=== PATIENT | female | born 1935 | race Caucasian/White ===

== ENCOUNTER 2018-10-05 10:20 | Inpatient (IN) | payer BC ==
[~2018-10-05] VITALS: Ht 149.9 cm; Wt 50.3 kg
[~2018-10-05 10:20] MED LIST: FAMO40TA4 PO; LISI1TAB3 PO; METH2.5T PO; OMEP20TA63 PO; ROPI0.5T PO
[2018-10-05 11:00] VITALS: BP 164/77
[2018-10-05] MEDS ORDERED: LOSA50TA15 PO (11:05)
[2018-10-05] MEDS ORDERED: IPRA3AMP29 INH (11:08)
[2018-10-05] MEDS ORDERED: PROAIR RESPICL90 MCG INH (11:08)
[2018-10-05] MEDS ORDERED: HYDR-2765 PO (11:57)
[2018-10-05] MEDS ORDERED: ROPI1TAB2 PO (11:57)
[2018-10-05] MEDS ORDERED: AMLO5TAB10 PO (11:57)
[2018-10-05] MEDS ORDERED: ROPI2TAB4 PO (11:57)
[2018-10-05] MEDS: IPRATRPIUM/ALBUTEROL 0.5/2.5MG 3 ML NEBU. NEB SCH ×3 (12:00→19:59)
[2018-10-05] MEDS ORDERED: MAGNESIUM HYDROXIDE 2,400 MG/30 ML ORAL.SUSP. PO PRN (12:00)
[2018-10-05] MEDS ORDERED: ACETAMINOPHEN 325 MG TABLET. PO PRN (12:00)
[2018-10-05 12:25] LABS: BASO # 0.1 x10^3/uL (0.0-0.2); BASO % 1 % (0-3); EOS % 0 % (0-3); HEMATOCRIT 42.6 % (36.0-47.0); LYMPH # 0.9 x10^3/uL (1.0-4.8); LYMPH % 13 % (24-48); MEAN CORPUSCULAR HEMOGLOBIN 32 pg (25-35); MEAN CORPUSCULAR HGB CONC 33 g/dL (31-37); MEAN CORPUSCULAR VOLUME 97 fL (79-100); MONO # 0.5 x10^3/uL (0.0-1.1); MONO % 8 % (0-9); NEUT # 5.4 x10^3uL (1.8-7.7); NEUT % 79 % (31-73); PLATELET COUNT 212 x10^3/uL (140-400); RED BLOOD COUNT 4.39 x10^6/uL (3.50-5.40); RED CELL DISTRIBUTION WIDTH 15.6 % (11.5-14.5); WHITE BLOOD COUNT 6.9 x10^3/uL (4.0-11.0)
[2018-10-05 12:34] LABS: ALBUMIN 3.2 g/dL (3.4-5.0); ALBUMIN/GLOBULIN RATIO 0.8 (1.0-1.7); CALCIUM 9.1 mg/dL (8.5-10.1); CREATININE 0.6 mg/dL (0.6-1.0); POTASSIUM 4.2 mmol/L (3.5-5.1); TOTAL BILIRUBIN 0.7 mg/dL (0.2-1.0)
[2018-10-05] MEDS: methylPREDNISolone SOD SUCC PF 40 MG/ML VIAL. IV SCH ×2 (12:58→22:02)
[2018-10-05] MEDS: HYDROcodone/APAP 7.5/325MG 1 TAB TABLET PO PRN ×2 (12:58→19:56)
[2018-10-05] MEDS: LOSARTAN POTASSIUM 50 MG TABLET. PO SCH (13:00)
[2018-10-05] MEDS: amLODIPine BESYLATE 5 MG TABLET PO SCH (13:00)
--- NOTE | 2018-10-05 13:18 | RAD ---
CT of the chest without contrast, 10/05/2018: History: Cough, worsening dyspnea Noncontrast scans were obtained and compared to a study from 05/16/2014. There is extensive calcific plaquing of the thoracic aorta and its branches without evidence of aneurysm. Moderate coronary artery calcifications are present. The heart is not enlarged. There is a large hiatal hernia. A precarinal lymph node of borderline size is noted. No definite mediastinal adenopathy is seen. Emphysematous changes are present in the lungs with scattered parenchymal scars. There are new pulmonary opacities which are most prominent in the right middle lobe and lingula. There is a mixture of groundglass and tree in bud type opacities as well as other linear reticular opacities. There is a small area of dense consolidation or atelectasis in the medial aspect of the right middle lobe without air bronchograms. There is a moderate sized parenchymal calcification the right lower lobe abutting the fissure. There is no evidence of pleural fluid. Scattered degenerative changes are present in the spine. There are 2 mid thoracic vertebral compression, which are probably old. Moderate multilevel degenerative change is present in the spine. IMPRESSION: 1. Emphysema with bilateral parenchymal scarring. 2. New scattered mild parenchymal opacities with dominant involvement of the right middle lobe and lingula which are most likely inflammatory in nature. 3. Mild dense atelectasis/consolidation medially in the right middle lobe. CT follow-up is suggested to exclude a neoplastic etiology. 4. Moderate calcific plaquing of aorta and coronary arteries. 5. Large hiatal hernia. 6. Mid thoracic vertebral compression fractures. PQRS Compliance Statement: One or more of the following individualized dose reduction techniques were utilized for this examination: 1. Automated exposure control 2. Adjustment of the mA and/or kV according to patient size 3. Use of iterative reconstruction technique
--- NOTE | 2018-10-05 13:22 | RAD ---
Chest, 2 views, 10/05/2018: HISTORY: Shortness of breath, cough Comparison is made to a study from 03/22/2013. There is hyperexpansion of the lungs compatible with emphysema. A moderate-sized hiatal hernia is noted. There is moderate calcific plaquing and tortuosity of the thoracic aorta. The heart appears to be within normal limits in size. There are are linear parenchymal opacities compatible scarring. Right middle lobe atelectasis/infiltrate is present obscuring the right heart border. No pleural fluid is evident. Several midthoracic vertebral compression deformities are noted with accentuation of the normal thoracic kyphosis. One of these was present in 2006. Moderate scattered spurs are present in the spine. An old rib fracture is noted laterally on the right. IMPRESSION: 1. Emphysema with parenchymal scarring. 2. Moderate right middle lobe infiltrate suggesting pneumonia. 3. Moderate sized hiatal hernia. 4. Midthoracic vertebral compression fractures. Electronically signed by: Thanh Myers MD (10/05/2018 1:19 PM) [facility]
--- NOTE | 2018-10-05 13:44 | EKG ---
[facility] [address] [place] [address] Test Date: 2018-10-05 Test Time: 13:36:53 Pat Name: ADEN GALLOWAY Department: Room: 521 1 Gender: F Drier Take Off Tender: AT : 1935 Requested By: HIPOLITO SCHAFER Order Number: [id number] Reading MD: Kelvin Mi MD Measurements Intervals [place] Rate: 100 P: 45 NV: 206 QRS: 13 QRSD: 82 T: 30 QT: 314 QTc: 408 Interpretive Statements SINUS RHYTHM PROLONGED NV INTERVAL NON-SPECIFIC ST/T CHANGES Electronically Signed On 10-05-2018 15:12:33 CDT by Kelvin Mi MD
[2018-10-05 14:29] LABS: BILIRUBIN,URINE NEGATIVE (NEG); CLARITY,URINE CLEAR; COLOR,URINE YELLOW; NITRITE,URINE NEGATIVE (NEG); PROTEIN,URINE NEGATIVE (NEG-TRACE); UROBILINOGEN,URINE 0.2 mg/dL (0.2 mg/dL)
[2018-10-05 15:00] VITALS: BP 144/78
[2018-10-05 15:09] LABS: BACTERIA,URINE MANY /HPF (0-FEW); RBC,URINE OCC /HPF (0-2); WBC,URINE >40 /HPF (0-4)
[2018-10-05] MEDS ORDERED: ONDANSETRON ODT 4 MG TAB.RAPDIS. PO PRN (16:30)
[2018-10-05] MEDS ORDERED: cefTRIAXone IV Push 1 GM VIAL. IVP SCH (17:00)
[2018-10-05] MEDS: rOPINIRole 1 MG TABLET. PO SCH ×2 (17:07→20:30)
[2018-10-05] MEDS: AZITHROMYCIN 250 MG TABLET. PO SCH (17:07)
--- NOTE | 2018-10-05 17:23 | PDOC ---
PULMONARY PROGRESS NOTES Vitals Vital Signs Date Time Temp Pulse Resp B/P (MAP) Pulse Ox O2 Delivery O2 Flow Rate FiO2 10/05/18 15:00 97.8 89 18 144/78 (100) 91 Room Air 97.8 Labs Laboratory Tests Test 10/05/18 12:10 10/05/18 13:30 White Blood Count 6.9 x10^3/uL (4.0-11.0) Red Blood Count 4.39 x10^6/uL (3.50-5.40) Hemoglobin 14.0 g/dL (12.0-15.5) Hematocrit 42.6 % (36.0-47.0) Mean Corpuscular Volume 97 fL (79-100) Mean Corpuscular Hemoglobin 32 pg (25-35) Mean Corpuscular Hemoglobin Concent 33 g/dL (31-37) Red Cell Distribution Width 15.6 % (11.5-14.5) Platelet Count 212 x10^3/uL (140-400) Neutrophils (%) (Auto) 79 % (31-73) Lymphocytes (%) (Auto) 13 % (24-48) Monocytes (%) (Auto) 8 % (0-9) Eosinophils (%) (Auto) 0 % (0-3) Basophils (%) (Auto) 1 % (0-3) Neutrophils # (Auto) 5.4 x10^3uL (1.8-7.7) Lymphocytes # (Auto) 0.9 x10^3/uL (1.0-4.8) Monocytes # (Auto) 0.5 x10^3/uL (0.0-1.1) Eosinophils # (Auto) 0.0 x10^3/uL (0.0-0.7) Basophils # (Auto) 0.1 x10^3/uL (0.0-0.2) Sodium Level 138 mmol/L (136-145) Potassium Level 4.2 mmol/L (3.5-5.1) Chloride Level 100 mmol/L (98-107) Carbon Dioxide Level 28 mmol/L (21-32) Anion Gap 10 (6-14) Blood Urea Nitrogen 9 mg/dL (7-20) Creatinine 0.6 mg/dL (0.6-1.0) Estimated GFR (Cockcroft-Gault) 95.0 BUN/Creatinine Ratio 15 (6-20) Glucose Level 91 mg/dL (70-99) Calcium Level 9.1 mg/dL (8.5-10.1) Total Bilirubin 0.7 mg/dL (0.2-1.0) Aspartate Amino Transf (AST/SGOT) 25 U/L (15-37) Alanine Aminotransferase (ALT/SGPT) 32 U/L (14-59) Alkaline Phosphatase 101 U/L (46-116) Total Protein 7.0 g/dL (6.4-8.2) Albumin 3.2 g/dL (3.4-5.0) Albumin/Globulin Ratio 0.8 (1.0-1.7) Urine Collection Type Unknown Urine Color Yellow Urine Clarity Clear Urine pH 7.0 Urine Specific [place] 1.010 Urine Protein Negative mg/dL (NEG-TRACE) Urine Glucose (UA) Negative mg/dL (NEG) Urine Ketones (Stick) Negative mg/dL (NEG) Urine Blood Negative (NEG) Urine Nitrite Negative (NEG) Urine Bilirubin Negative (NEG) Urine Urobilinogen Dipstick 0.2 mg/dL (0.2 mg/dL) Urine Leukocyte Esterase Moderate (NEG) Urine RBC Occ /HPF (0-2) Urine WBC >40 /HPF (0-4) Urine Bacteria Many /HPF (0-FEW) Laboratory Tests Test 10/05/18 12:10 10/05/18 13:30 White Blood Count 6.9 x10^3/uL (4.0-11.0) Red Blood Count 4.39 x10^6/uL (3.50-5.40) Hemoglobin 14.0 g/dL (12.0-15.5) Hematocrit 42.6 % (36.0-47.0) Mean Corpuscular Volume 97 fL (79-100) Mean Corpuscular Hemoglobin 32 pg (25-35) Mean Corpuscular Hemoglobin Concent 33 g/dL (31-37) Red Cell Distribution Width 15.6 % (11.5-14.5) Platelet Count 212 x10^3/uL (140-400) Neutrophils (%) (Auto) 79 % (31-73) Lymphocytes (%) (Auto) 13 % (24-48) Monocytes (%) (Auto) 8 % (0-9) Eosinophils (%) (Auto) 0 % (0-3) Basophils (%) (Auto) 1 % (0-3) Neutrophils # (Auto) 5.4 x10^3uL (1.8-7.7) Lymphocytes # (Auto) 0.9 x10^3/uL (1.0-4.8) Monocytes # (Auto) 0.5 x10^3/uL (0.0-1.1) Eosinophils # (Auto) 0.0 x10^3/uL (0.0-0.7) Basophils # (Auto) 0.1 x10^3/uL (0.0-0.2) Sodium Level 138 mmol/L (136-145) Potassium Level 4.2 mmol/L (3.5-5.1) Chloride Level 100 mmol/L (98-107) Carbon Dioxide Level 28 mmol/L (21-32) Anion Gap 10 (6-14) Blood Urea Nitrogen 9 mg/dL (7-20) Creatinine 0.6 mg/dL (0.6-1.0) Estimated GFR (Cockcroft-Gault) 95.0 BUN/Creatinine Ratio 15 (6-20) Glucose Level 91 mg/dL (70-99) Calcium Level 9.1 mg/dL (8.5-10.1) Total Bilirubin 0.7 mg/dL (0.2-1.0) Aspartate Amino Transf (AST/SGOT) 25 U/L (15-37) Alanine Aminotransferase (ALT/SGPT) 32 U/L (14-59) Alkaline Phosphatase 101 U/L (46-116) Total Protein 7.0 g/dL (6.4-8.2) Albumin 3.2 g/dL (3.4-5.0) Albumin/Globulin Ratio 0.8 (1.0-1.7) Urine Collection Type Unknown Urine Color Yellow Urine Clarity Clear Urine pH 7.0 Urine Specific [place] 1.010 Urine Protein Negative mg/dL (NEG-TRACE) Urine Glucose (UA) Negative mg/dL (NEG) Urine Ketones (Stick) Negative mg/dL (NEG) Urine Blood Negative (NEG) Urine Nitrite Negative (NEG) Urine Bilirubin Negative (NEG) Urine Urobilinogen Dipstick 0.2 mg/dL (0.2 mg/dL) Urine Leukocyte Esterase Moderate (NEG) Urine RBC Occ /HPF (0-2) Urine WBC >40 /HPF (0-4) Urine Bacteria Many /HPF (0-FEW) Medications Active Scripts Medications Dose Route/Sig Max Daily Dose Days Date Category Hydrocodone-Apap 7.5-325 (Hydrocodone Bit/Acetaminophen) 1 Tab Tablet 1 Tab PO PRN Q4HRS PRN 10/05/18 Reported Ropinirole Hcl 2 Mg Tablet 2 Mg PO HS 10/05/18 Reported Amlodipine Besylate 5 Mg Tablet 5 Mg PO DAILY 10/05/18 Reported Ropinirole Hcl 1 Mg Tablet 1 Mg PO DAILYWSUP 10/05/18 Reported Duoneb 0.5-3(2.5) Mg/3 Ml (Albuterol/Ipratropium) 3 Ml Ampul.neb 1 INH PRN Q4-6HRS PRN 10/05/18 Reported Proair Respiclick (Albuterol Sulfate) 90 Mcg Aer.pow.ba 1 Puff INH PRN Q2-4HRS PRN 10/05/18 Reported Losartan Potassium 50 Mg Tablet 50 Mg PO DAILY 10/05/18 Reported Methotrexate (Methotrexate Sodium) 2.5 Mg Tablet 2.5 Mg PO DAILY 05/16/14 Reported Prilosec Otc (Omeprazole Magnesium) 20 Mg Tablet.dr 1 Tab PO DAILY 05/16/14 Reported Famotidine 40 Mg Tablet 40 Mg PO HS 05/16/14 Reported Impression . FULL NOTE DICTATED THANKS PNEUMONIA SEE ORDERS JANI ASHTON MD Oct 05, 2018 17:23
[2018-10-05] MEDS: LINEZOLID 600 MG TABLET PO SCH (18:08)
--- NOTE | 2018-10-05 18:53 | HP ---
ADMIT DATE: 10/05/2018 LOCATION: She is in room 521. HISTORY OF PRESENT ILLNESS: The patient is an 83-year-old white female with a history of chronic obstructive pulmonary disease who was admitted to [facility] on 10/05/2018 with a 1-week history of increasing shortness of breath and a cough productive of yellow sputum. She was seen by Dr. Talbot, the data developer on 10/01/2018 in the office and was started on Zithromax for a cough productive of yellow sputum. She called Dr. Yun this morning and noted that she was short of breath and coughing still prompting admission to the hospital. Chest x-ray was consistent with right middle lobe infiltrate. She sought treatment in the hospital for further evaluation of her pneumonia and chronic obstructive pulmonary disease exacerbation. She notes increasing shortness of breath and dyspnea on exertion also in the last week and also some wheezing. ALLERGIES AND INTOLERANCES: PENICILLIN, WHICH CAUSES A RASH. MEDICATIONS: Include albuterol nebulized treatments q.i.d. p.r.n., amlodipine 5 mg every day, famotidine 40 mg at bedtime, folic acid 1 mg every day, Humira injection every 2 weeks, losartan 50 mg every day, methotrexate 17.5 mg every Friday, [place] 7.5/325 mg 1-2 every 4 hours p.r.n. She is on Requip 1 mg at 5:00 p.m. and 2 mg at bedtime. She is on Spiriva 1 puff every day, Prilosec [id number]-mga-tvrgrju 20 mg every day and Ventolin inhaler 1 puff every 4 hours p.r.n. PAST MEDICAL HISTORY: Significant for chronic obstructive pulmonary disease, hypertension, gastroesophageal reflux disease, osteoporosis, osteoarthritis of her knee, psoriasis with psoriatic arthritis for which she takes Humira and methotrexate. She is immunosuppressed due to the Humira and the methotrexate. She has a history of an EGD with dilatation in August 2012. She had an open reduction and internal fixation of right hip fracture in 2012. She has had a colostomy in 2004. She had a hemorrhoidectomy, appendectomy, vocal nodule removed in 2012. She has got restless leg syndrome, overactive bladder. SOCIAL HISTORY: She does not drink alcohol. She has a history of smoking and she smoked about 1 pack per day for about 64 years. REVIEW OF SYSTEMS: GENERAL: There has been no fever, chills or sweats in the last 3 days. CARDIOVASCULAR: No chest pain. PULMONARY: She has shortness of breath, cough and dyspnea on exertion. GASTROINTESTINAL: No vomiting. She had some nausea. ENDOCRINE: No diabetes mellitus. SKIN: No rashes. The rest of systems reviewed and negative except as stated in history of present illness. PHYSICAL EXAMINATION: VITAL SIGNS: Temperature is 97.8 degrees, apical pulse 89, respiratory rate 18, blood pressure 144/78, oxygen saturation 91% on room air. HEENT: Eyes: Gaze is conjugate. Extraocular muscles are intact. Mouth: Tongue is midline, without yeast. NECK: No cervical lymphadenopathy or thyroid enlargement. HEART: Reveals an S1, S2. There is no S3 or murmur. LUNGS: Revealed decreased breath sounds bilaterally. ABDOMEN: Soft, nontender with no hepatosplenomegaly, masses or tenderness. EXTREMITIES: Lower extremities without edema. Dorsalis pedis pulses 2+ in the feet. SKIN: No rashes. NEUROLOGIC: No focal weakness or facial asymmetry. LABORATORY DATA: The white count is 6.9, hemoglobin 14, platelet count 212,000, 79 polys and 13 lymphocytes. She had a serum sodium of 138, potassium 4.2, chloride 100, total CO2 of 28, BUN 9, creatinine 0.6. Liver function tests normal. Blood sugar 91. Albumin 3.2. Urinalysis showed greater than 40 white cells and occasional red blood cells. Sputum culture showed many white blood cells, Gram-positive cocci and the culture is pending. She had a chest x-ray done, which showed emphysema with moderate right middle lobe infiltrates consistent with pneumonia, moderate size hiatal hernia and mid thoracic vertebral compression fractures that were probably old and then she had a CAT scan of the chest done, which showed emphysema and also showed right middle lobe opacities, most likely inflammatory in nature with mild dense consolidation, atelectasis medially in the right middle lobe. She had moderate calcific plaquing of the aorta and coronary arteries and a large hiatal hernia and also mid thoracic vertebral compression fractures, probably old. She had an electrocardiogram that showed normal sinus rhythm with nonspecific ST-T wave changes. ASSESSMENT: 1. Right middle lobe pneumonia. 2. Chronic obstructive pulmonary disease exacerbation secondary to pneumonia. 3. Hypertension. 4. Gastroesophageal reflux disease. 5. Psoriatic arthritis. 6. 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 PLAN: At this time is to consult Dr. Yun for Pulmonary, Dr. Santos for Infectious Disease. Wait for the sputum culture. She does have pyuria. We will get a urine culture also. We will treat her with IV antibiotics, nebulizer treatments, IV Solu-Medrol and repeat a CBC and BMP tomorrow. We will order SCDs for deep vein thrombosis prophylaxis and continue with her other home medications. HIPOLITO SCHAFER MD DR: ASAEL/kaveh JOB#: [id number] / [id number]
[2018-10-05 19:00] VITALS: BP 143/74
[2018-10-05] MEDS: FAMOTIDINE 20 MG TABLET. PO SCH (20:26)
[2018-10-05] MEDS: ZOLPIDEM 5 MG TABLET. PO PRN (22:03)
[2018-10-05 22:34] VITALS: BP 116/62
[2018-10-06 03:00] VITALS: BP 115/65
[2018-10-06 04:24] LABS: BASO % 0 % (0-3); EOS % 0 % (0-3); HEMATOCRIT 39.6 % (36.0-47.0); HEMOGLOBIN 13.1 g/dL (12.0-15.5); LYMPH # 0.4 x10^3/uL (1.0-4.8); LYMPH % 11 % (24-48); MEAN CORPUSCULAR HEMOGLOBIN 32 pg (25-35); MEAN CORPUSCULAR HGB CONC 33 g/dL (31-37); MEAN CORPUSCULAR VOLUME 96 fL (79-100); MONO # 0.1 x10^3/uL (0.0-1.1); MONO % 2 % (0-9); NEUT # 3.4 x10^3uL (1.8-7.7); NEUT % 86 % (31-73); PLATELET COUNT 197 x10^3/uL (140-400); RED BLOOD COUNT 4.11 x10^6/uL (3.50-5.40); RED CELL DISTRIBUTION WIDTH 15.3 % (11.5-14.5); WHITE BLOOD COUNT 3.9 x10^3/uL (4.0-11.0)
[2018-10-06 04:33] LABS: CALCIUM 8.9 mg/dL (8.5-10.1); CREATININE 0.7 mg/dL (0.6-1.0); GFR 79.5; POTASSIUM 4.4 mmol/L (3.5-5.1)
[2018-10-06] MEDS: methylPREDNISolone SOD SUCC PF 40 MG/ML VIAL. IV SCH ×3 (05:30→20:44)
[2018-10-06 07:00] VITALS: BP 131/74
[2018-10-06] MEDS: PANTOPRAZOLE 40 MG TABLET.DR. PO SCH (07:43)
[2018-10-06 07:55] LABS: % EOS 1 % (0-5); % LYMPHS 9 % (24-48); % MONOS 2 % (0-10); % SEGS 88 % (35-66); PLT ESTIMATE ADEQUATE (ADEQUATE)
[2018-10-06 07:57] LABS: SCHISTOCYTES OCC
[2018-10-06] MEDS: IPRATRPIUM/ALBUTEROL 0.5/2.5MG 3 ML NEBU. NEB SCH ×4 (08:00→19:18)
[2018-10-06] MEDS: LINEZOLID 600 MG TABLET PO SCH ×2 (08:48→20:37)
[2018-10-06] MEDS: AZITHROMYCIN 250 MG TABLET. PO SCH (08:48)
[2018-10-06] MEDS: amLODIPine BESYLATE 5 MG TABLET PO SCH (08:48)
[2018-10-06] MEDS: LOSARTAN POTASSIUM 50 MG TABLET. PO SCH (08:49)
--- NOTE | 2018-10-06 10:17 | PDOC ---
PROGRESS NOTES Subjective Subjective oxygen started last night.has a dry cough. not short of breath at rest. lab reviewed. Objective Objective Vital Signs Date Time Temp Pulse Resp B/P (MAP) Pulse Ox O2 Delivery O2 Flow Rate FiO2 10/06/18 08:49 91 131/74 10/06/18 07:45 Nasal Cannula 2.0 10/06/18 07:00 97.5 18 90 97.5 Intake and Output 10/06/18 07:00 Intake Total 510 ml Balance 510 ml Intake Oral 510 ml # Voids 4 Physical Exam Abdomen: Soft Heart: Regular rate, Normal S1, Normal S2 Extremities: No edema General: Alert, Cooperative HEENT: Atraumatic Lungs: Other (decreased breath sounds) Neuro: Normal speech Psych/Mental Status: Mental status NL Skin: No rashes Assessment Assessment 1. Right middle lobe pneumonia. 2. Chronic obstructive pulmonary disease exacerbation secondary to pneumonia. 3. Hypertension. 4. Gastroesophageal reflux disease. 5. Psoriatic arthritis. 6. 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 pyuria Plan Plan of Care continue iv antibiotics continue iv solumedrol continue nebulizer rx consult ID and pulmonary Comment Review of Relevant I have reviewed the following items anette (where applicable) has been applied. Labs Laboratory Tests Test 10/05/18 12:10 10/05/18 13:30 10/06/18 03:35 White Blood Count 6.9 x10^3/uL (4.0-11.0) 3.9 x10^3/uL (4.0-11.0) Red Blood Count 4.39 x10^6/uL (3.50-5.40) 4.11 x10^6/uL (3.50-5.40) Hemoglobin 14.0 g/dL (12.0-15.5) 13.1 g/dL (12.0-15.5) Hematocrit 42.6 % (36.0-47.0) 39.6 % (36.0-47.0) Mean Corpuscular Volume 97 fL (79-100) 96 fL (79-100) Mean Corpuscular Hemoglobin 32 pg (25-35) 32 pg (25-35) Mean Corpuscular Hemoglobin Concent 33 g/dL (31-37) 33 g/dL (31-37) Red Cell Distribution Width 15.6 % (11.5-14.5) 15.3 % (11.5-14.5) Platelet Count 212 x10^3/uL (140-400) 197 x10^3/uL (140-400) Neutrophils (%) (Auto) 79 % (31-73) 86 % (31-73) Lymphocytes (%) (Auto) 13 % (24-48) 11 % (24-48) Monocytes (%) (Auto) 8 % (0-9) 2 % (0-9) Eosinophils (%) (Auto) 0 % (0-3) 0 % (0-3) Basophils (%) (Auto) 1 % (0-3) 0 % (0-3) Neutrophils # (Auto) 5.4 x10^3uL (1.8-7.7) 3.4 x10^3uL (1.8-7.7) Lymphocytes # (Auto) 0.9 x10^3/uL (1.0-4.8) 0.4 x10^3/uL (1.0-4.8) Monocytes # (Auto) 0.5 x10^3/uL (0.0-1.1) 0.1 x10^3/uL (0.0-1.1) Eosinophils # (Auto) 0.0 x10^3/uL (0.0-0.7) 0.0 x10^3/uL (0.0-0.7) Basophils # (Auto) 0.1 x10^3/uL (0.0-0.2) 0.0 x10^3/uL (0.0-0.2) Sodium Level 138 mmol/L (136-145) 138 mmol/L (136-145) Potassium Level 4.2 mmol/L (3.5-5.1) 4.4 mmol/L (3.5-5.1) Chloride Level 100 mmol/L (98-107) 101 mmol/L (98-107) Carbon Dioxide Level 28 mmol/L (21-32) 27 mmol/L (21-32) Anion Gap 10 (6-14) 10 (6-14) Blood Urea Nitrogen 9 mg/dL (7-20) 21 mg/dL (7-20) Creatinine 0.6 mg/dL (0.6-1.0) 0.7 mg/dL (0.6-1.0) Estimated GFR (Cockcroft-Gault) 95.0 79.5 BUN/Creatinine Ratio 15 (6-20) Glucose Level 91 mg/dL (70-99) 141 mg/dL (70-99) Calcium Level 9.1 mg/dL (8.5-10.1) 8.9 mg/dL (8.5-10.1) Total Bilirubin 0.7 mg/dL (0.2-1.0) Aspartate Amino Transf (AST/SGOT) 25 U/L (15-37) Alanine Aminotransferase (ALT/SGPT) 32 U/L (14-59) Alkaline Phosphatase 101 U/L (46-116) Total Protein 7.0 g/dL (6.4-8.2) Albumin 3.2 g/dL (3.4-5.0) Albumin/Globulin Ratio 0.8 (1.0-1.7) Urine Collection Type Unknown Urine Color Yellow Urine Clarity Clear Urine pH 7.0 Urine Specific [place] 1.010 Urine Protein Negative mg/dL (NEG-TRACE) Urine Glucose (UA) Negative mg/dL (NEG) Urine Ketones (Stick) Negative mg/dL (NEG) Urine Blood Negative (NEG) Urine Nitrite Negative (NEG) Urine Bilirubin Negative (NEG) Urine Urobilinogen Dipstick 0.2 mg/dL (0.2 mg/dL) Urine Leukocyte Esterase Moderate (NEG) Urine RBC Occ /HPF (0-2) Urine WBC >40 /HPF (0-4) Urine Bacteria Many /HPF (0-FEW) Segmented Neutrophils % 88 % (35-66) Lymphocytes % 9 % (24-48) Monocytes % 2 % (0-10) Eosinophils % 1 % (0-5) Platelet Estimate Adequate (ADEQUATE) Schistocytes Occ Laboratory Tests Test 10/05/18 12:10 10/05/18 13:30 10/06/18 03:35 White Blood Count 6.9 x10^3/uL (4.0-11.0) 3.9 x10^3/uL (4.0-11.0) Red Blood Count 4.39 x10^6/uL (3.50-5.40) 4.11 x10^6/uL (3.50-5.40) Hemoglobin 14.0 g/dL (12.0-15.5) 13.1 g/dL (12.0-15.5) Hematocrit 42.6 % (36.0-47.0) 39.6 % (36.0-47.0) Mean Corpuscular Volume 97 fL (79-100) 96 fL (79-100) Mean Corpuscular Hemoglobin 32 pg (25-35) 32 pg (25-35) Mean Corpuscular Hemoglobin Concent 33 g/dL (31-37) 33 g/dL (31-37) Red Cell Distribution Width 15.6 % (11.5-14.5) 15.3 % (11.5-14.5) Platelet Count 212 x10^3/uL (140-400) 197 x10^3/uL (140-400) Neutrophils (%) (Auto) 79 % (31-73) 86 % (31-73) Lymphocytes (%) (Auto) 13 % (24-48) 11 % (24-48) Monocytes (%) (Auto) 8 % (0-9) 2 % (0-9) Eosinophils (%) (Auto) 0 % (0-3) 0 % (0-3) Basophils (%) (Auto) 1 % (0-3) 0 % (0-3) Neutrophils # (Auto) 5.4 x10^3uL (1.8-7.7) 3.4 x10^3uL (1.8-7.7) Lymphocytes # (Auto) 0.9 x10^3/uL (1.0-4.8) 0.4 x10^3/uL (1.0-4.8) Monocytes # (Auto) 0.5 x10^3/uL (0.0-1.1) 0.1 x10^3/uL (0.0-1.1) Eosinophils # (Auto) 0.0 x10^3/uL (0.0-0.7) 0.0 x10^3/uL (0.0-0.7) Basophils # (Auto) 0.1 x10^3/uL (0.0-0.2) 0.0 x10^3/uL (0.0-0.2) Sodium Level 138 mmol/L (136-145) 138 mmol/L (136-145) Potassium Level 4.2 mmol/L (3.5-5.1) 4.4 mmol/L (3.5-5.1) Chloride Level 100 mmol/L (98-107) 101 mmol/L (98-107) Carbon Dioxide Level 28 mmol/L (21-32) 27 mmol/L (21-32) Anion Gap 10 (6-14) 10 (6-14) Blood Urea Nitrogen 9 mg/dL (7-20) 21 mg/dL (7-20) Creatinine 0.6 mg/dL (0.6-1.0) 0.7 mg/dL (0.6-1.0) Estimated GFR (Cockcroft-Gault) 95.0 79.5 BUN/Creatinine Ratio 15 (6-20) Glucose Level 91 mg/dL (70-99) 141 mg/dL (70-99) Calcium Level 9.1 mg/dL (8.5-10.1) 8.9 mg/dL (8.5-10.1) Total Bilirubin 0.7 mg/dL (0.2-1.0) Aspartate Amino Transf (AST/SGOT) 25 U/L (15-37) Alanine Aminotransferase (ALT/SGPT) 32 U/L (14-59) Alkaline Phosphatase 101 U/L (46-116) Total Protein 7.0 g/dL (6.4-8.2) Albumin 3.2 g/dL (3.4-5.0) Albumin/Globulin Ratio 0.8 (1.0-1.7) Urine Collection Type Unknown Urine Color Yellow Urine Clarity Clear Urine pH 7.0 Urine Specific [place] 1.010 Urine Protein Negative mg/dL (NEG-TRACE) Urine Glucose (UA) Negative mg/dL (NEG) Urine Ketones (Stick) Negative mg/dL (NEG) Urine Blood Negative (NEG) Urine Nitrite Negative (NEG) Urine Bilirubin Negative (NEG) Urine Urobilinogen Dipstick 0.2 mg/dL (0.2 mg/dL) Urine Leukocyte Esterase Moderate (NEG) Urine RBC Occ /HPF (0-2) Urine WBC >40 /HPF (0-4) Urine Bacteria Many /HPF (0-FEW) Segmented Neutrophils % 88 % (35-66) Lymphocytes % 9 % (24-48) Monocytes % 2 % (0-10) Eosinophils % 1 % (0-5) Platelet Estimate Adequate (ADEQUATE) Schistocytes Occ Microbiology 10/05/18 Gram Stain - Final, Complete Medications Current Medications Methylprednisolone Sodium Succinate (SOLU-Medrol 40MG VIAL) 40 mg Q8HRS IV Last administered on 10/06/18 05:30; Start 10/05/18 at 14:00 Albuterol/ Ipratropium (Duoneb) 3 ml RTQID NEB ; Start 10/05/18 at 12:00 Amlodipine Besylate (Norvasc) 5 mg DAILY PO Last administered on 10/06/18 08:48 ; Start 10/05/18 at 13:00 Acetaminophen/ Hydrocodone Bitart (Lortab 7.5/325) 1 tab PRN Q4HRS PRN PO PAIN Last administered on 10/05/18 19:56; Start 10/05/18 at 12:00 Losartan Potassium (Cozaar) 50 mg DAILY PO Last administered on 10/06/18 08:49 ; Start 10/05/18 at 13:00 Famotidine (Pepcid) 40 mg HS PO Last administered on 10/05/18 20:26; Start 10/05 at 21:00 Ropinirole HCl (Requip) 1 mg DAILYWSUP PO Last administered on 10/05/18 17:07; Start 10/05/18 at 17:00 Ropinirole HCl (Requip) 2 mg HS PO Last administered on 10/05/18at 20:30; Start 10/05/18 at 21:00 Pantoprazole Sodium (Protonix) 40 mg DAILYAC PO Last administered on 10/06/18 07:43; Start 10/06/18 at 07:30 Acetaminophen (Tylenol) 650 mg PRN Q6HRS PRN PO MILD PAIN / TEMP; Start at 12:00 Magnesium Hydroxide (Milk Of Magnesia) 2,400 mg PRN DAILY PRN PO CONSTIPATION; Start 10/05/18 at 12:00 Levofloxacin (Levaquin) 500 mg Q24H PO Last administered on 10/05/18at 12:58; Start 10/05/18 at 13:00; Stop 10/05/18 at 16:28; Status DC Ceftriaxone Sodium (Rocephin) 1 gm Q24H IVP Last administered on 4/1/19at 17:07 ; Start 10/05/18 at 17:00 Azithromycin (Zithromax) 250 mg DAILY PO Last administered on 10/06/18at 08:48; Start 10/05/18 at 17:00 Ondansetron HCl (Zofran Odt) 4 mg PRN Q6HRS PRN PO NAUSEA/VOMITING Last administered on 10/05/18at 21:21; Start 10/05/18 at 16:30 Linezolid (Zyvox) 600 mg BID PO Last administered on 10/06/18at 08:48; Start 10/05 at 18:00 Zolpidem Tartrate (Ambien) 5 mg PRN QHS PRN PO INSOMNIA Last administered on 10/05/18at 22:03; Start 10/05/18 at 18:30 Active Scripts Active Reported Hydrocodone-Apap 7.5-325 (Hydrocodone Bit/Acetaminophen) 1 Tab Tablet 1 Tab PO PRN Q4HRS PRN Ropinirole Hcl 2 Mg Tablet 2 Mg PO HS Amlodipine Besylate 5 Mg Tablet 5 Mg PO DAILY Ropinirole Hcl 1 Mg Tablet 1 Mg PO DAILYWSUP Duoneb 0.5-3(2.5) Mg/3 Ml (Albuterol/Ipratropium) 3 Ml Ampul.neb 1 INH PRN Q4- 6HRS PRN Proair Respiclick (Albuterol Sulfate) 90 Mcg Aer.pow.ba 1 Puff INH PRN Q2-4HRS PRN Losartan Potassium 50 Mg Tablet 50 Mg PO DAILY Methotrexate (Methotrexate Sodium) 2.5 Mg Tablet 2.5 Mg PO DAILY Prilosec Otc (Omeprazole Magnesium) 20 Mg Tablet. 1 Tab PO DAILY Famotidine 40 Mg Tablet 40 Mg PO HS Vitals/I & O Vital Sign - Last 24 Hours 10/05/18 10/05/18 10/05/18 10/05/18 11:00 11:29 12:58 14:12 Temp 97.8 97.8 Pulse 88 Resp 18 B/P (MAP) 164/77 (106) Pulse Ox 92 92 O2 Delivery Room Air Room Air Room Air Room Air 10/05/18 10/05/18 10/05/18 10/05/18 15:00 19:00 19:56 20:00 Temp 97.8 98.2 97.8 98.2 Pulse 89 96 Resp 18 18 16 B/P (MAP) 144/78 (100) 143/74 (97) Pulse Ox 91 90 O2 Delivery Room Air Room Air Room Air Room Air 10/05/18 10/05/18 10/06/18 10/06/18 21:09 22:34 03:00 07:00 Temp 97.1 98.6 97.5 97.1 98.6 97.5 Pulse 96 83 91 Resp 16 18 18 18 B/P (MAP) 116/62 (80) 115/65 (82) 131/74 (93) Pulse Ox 91 91 90 O2 Delivery Nasal Cannula Nasal Cannula Nasal Cannula O2 Flow Rate 2.5 2.0 2.0 10/06/18 10/06/18 10/06/18 07:45 08:48 08:49 Pulse 91 91 B/P (MAP) 131/74 131/74 O2 Delivery Nasal Cannula O2 Flow Rate 2.0 Intake and Output 10/05/18 10/05/18 10/06/18 15:00 23:00 07:00 Intake Total 510 ml Balance 510 ml HIPOLITO SCHAFER MD Oct 06, 2018 10:17
--- NOTE | 2018-10-06 10:57 | CONS ---
DATE OF CONSULTATION: 10/05/2018 ATTENDING PHYSICIAN: Alden Jesus M.D. CONSULTING PHYSICIAN: Jani Ashton M.D. REASON FOR CONSULTATION: The patient seen in pulmonary consultation at the request of Dr. Jesus for increasing shortness of air. HISTORY OF PRESENT ILLNESS: The patient is an 83-year old who was seen in the office last week by Dr. Talbot. The patient was placed on antibiotics and prednisone. She did not improve. She called the office. She was followed up and was directly admitted. She is immunocompromised. CT chest was obtained. I have reviewed the CT. There are bilateral infiltrates, right greater than left. There is also a dense consolidation in the right middle lobe. The patient has been coughing up some mucus. No hemoptysis. She is not documented any fevers at home. PAST MEDICAL HISTORY: Remarkable for COPD, arthritis. She has some psoriatic arthritis. She has had previous abdominal surgery. She smokes and continues to do so. REVIEW OF SYSTEMS: As indicated above, otherwise, a 10-point system was reviewed and negative. ALLERGIES: PENICILLIN. HOME MEDICATIONS: List was reviewed. SOCIAL HISTORY: Socially, she continues to smoke. PHYSICAL EXAMINATION: VITAL SIGNS: Stable. O2 saturation was greater than 92%. HEENT: Eyes, the sclerae were nonicteric. NECK: Jugular venous distention was not elevated. No lymphadenopathy. CHEST: Full expansion. LUNGS: Adequate airway flow with no wheezes. CARDIOVASCULAR: Regular rate and rhythm with S1 and S2. No S3. ABDOMEN: Soft, nontender and nondistended. EXTREMITIES: No clubbing, cyanosis or edema. LABORATORY DATA: Labs were reviewed. White count was normal. Hemoglobin and hematocrit were noted. Electrolytes were noted. UA was noted. IMPRESSION: 1. Abnormal CT revealing bilateral infiltrates and right middle lobe consolidation. 2. Acute exacerbation of chronic obstructive pulmonary disease. 3. Pneumonia, suspect gram-negative, possibly gram-positive. 4. 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 I believe the patient has been on modulating drugs in the past. PLAN: 1. We will continue current antibiotics, add Zyvox. 2. Follow clinical course and make further recommendations. 3. Repeat CT of the chest in 2 months. I do appreciate the privilege in sharing in the patient's care. JANI ASHTON MD DR: ORLANDO/kaveh JOB#: [id number] / [id number]
[2018-10-06 11:00] VITALS: BP 110/67
--- NOTE | 2018-10-06 12:04 | PDOC ---
Infectious Disease Note Vital Sign Vital Signs Vital Signs Date Time Temp Pulse Resp B/P (MAP) Pulse Ox O2 Delivery O2 Flow Rate FiO2 10/06/18 11:00 97.7 97 18 110/67 (81) 93 Nasal Cannula 2.0 97.7 Labs Lab Laboratory Tests Test 10/05/18 12:10 10/05/18 13:30 10/06/18 03:35 White Blood Count 6.9 x10^3/uL (4.0-11.0) 3.9 x10^3/uL (4.0-11.0) Red Blood Count 4.39 x10^6/uL (3.50-5.40) 4.11 x10^6/uL (3.50-5.40) Hemoglobin 14.0 g/dL (12.0-15.5) 13.1 g/dL (12.0-15.5) Hematocrit 42.6 % (36.0-47.0) 39.6 % (36.0-47.0) Mean Corpuscular Volume 97 fL (79-100) 96 fL (79-100) Mean Corpuscular Hemoglobin 32 pg (25-35) 32 pg (25-35) Mean Corpuscular Hemoglobin Concent 33 g/dL (31-37) 33 g/dL (31-37) Red Cell Distribution Width 15.6 % (11.5-14.5) 15.3 % (11.5-14.5) Platelet Count 212 x10^3/uL (140-400) 197 x10^3/uL (140-400) Neutrophils (%) (Auto) 79 % (31-73) 86 % (31-73) Lymphocytes (%) (Auto) 13 % (24-48) 11 % (24-48) Monocytes (%) (Auto) 8 % (0-9) 2 % (0-9) Eosinophils (%) (Auto) 0 % (0-3) 0 % (0-3) Basophils (%) (Auto) 1 % (0-3) 0 % (0-3) Neutrophils # (Auto) 5.4 x10^3uL (1.8-7.7) 3.4 x10^3uL (1.8-7.7) Lymphocytes # (Auto) 0.9 x10^3/uL (1.0-4.8) 0.4 x10^3/uL (1.0-4.8) Monocytes # (Auto) 0.5 x10^3/uL (0.0-1.1) 0.1 x10^3/uL (0.0-1.1) Eosinophils # (Auto) 0.0 x10^3/uL (0.0-0.7) 0.0 x10^3/uL (0.0-0.7) Basophils # (Auto) 0.1 x10^3/uL (0.0-0.2) 0.0 x10^3/uL (0.0-0.2) Sodium Level 138 mmol/L (136-145) 138 mmol/L (136-145) Potassium Level 4.2 mmol/L (3.5-5.1) 4.4 mmol/L (3.5-5.1) Chloride Level 100 mmol/L (98-107) 101 mmol/L (98-107) Carbon Dioxide Level 28 mmol/L (21-32) 27 mmol/L (21-32) Anion Gap 10 (6-14) 10 (6-14) Blood Urea Nitrogen 9 mg/dL (7-20) 21 mg/dL (7-20) Creatinine 0.6 mg/dL (0.6-1.0) 0.7 mg/dL (0.6-1.0) Estimated GFR (Cockcroft-Gault) 95.0 79.5 BUN/Creatinine Ratio 15 (6-20) Glucose Level 91 mg/dL (70-99) 141 mg/dL (70-99) Calcium Level 9.1 mg/dL (8.5-10.1) 8.9 mg/dL (8.5-10.1) Total Bilirubin 0.7 mg/dL (0.2-1.0) Aspartate Amino Transf (AST/SGOT) 25 U/L (15-37) Alanine Aminotransferase (ALT/SGPT) 32 U/L (14-59) Alkaline Phosphatase 101 U/L (46-116) Total Protein 7.0 g/dL (6.4-8.2) Albumin 3.2 g/dL (3.4-5.0) Albumin/Globulin Ratio 0.8 (1.0-1.7) Urine Collection Type Unknown Urine Color Yellow Urine Clarity Clear Urine pH 7.0 Urine Specific [place] 1.010 Urine Protein Negative mg/dL (NEG-TRACE) Urine Glucose (UA) Negative mg/dL (NEG) Urine Ketones (Stick) Negative mg/dL (NEG) Urine Blood Negative (NEG) Urine Nitrite Negative (NEG) Urine Bilirubin Negative (NEG) Urine Urobilinogen Dipstick 0.2 mg/dL (0.2 mg/dL) Urine Leukocyte Esterase Moderate (NEG) Urine RBC Occ /HPF (0-2) Urine WBC >40 /HPF (0-4) Urine Bacteria Many /HPF (0-FEW) Segmented Neutrophils % 88 % (35-66) Lymphocytes % 9 % (24-48) Monocytes % 2 % (0-10) Eosinophils % 1 % (0-5) Platelet Estimate Adequate (ADEQUATE) Schistocytes Occ Micro Microbiology 10/05/18 Gram Stain - Final, Complete Objective Assessment Pneumonia - on Azithromycin prior to admit PCN allergy - tolerating Rocephin Immunosuppression with psoraric arthritis on steroid now ? UTI - POA Plan Plan of Care D/w Azithromycin as on it prior to admit and worsened Cont Zyvox Add Cefepime F/u labs and cults D/w family Thank you # [phone] ARELIS RAINES MD Oct 06, 2018 12:04
[2018-10-06] MEDS: HYDROcodone/APAP 7.5/325MG 1 TAB TABLET PO PRN (12:33)
[2018-10-06] MEDS: CEFEPIME HCL IV Push 1 GM VIAL. IVP SCH ×2 (13:09→20:37)
--- NOTE | 2018-10-06 13:26 | PDOC ---
PULMONARY PROGRESS NOTES Vitals Vital Signs Date Time Temp Pulse Resp B/P (MAP) Pulse Ox O2 Delivery O2 Flow Rate FiO2 10/06/18 12:33 Room Air 10/06/18 11:00 97.7 97 18 110/67 (81) 93 2.0 97.7 ROS: No Chest Pain, No Increase Cough General: Alert, No acute distress Lungs: Other (decrease bs) Cardiovascular: S1 Abdomen: Soft Neuro Exam: Alert Extremities: No Edema Skin: Warm Labs Laboratory Tests Test 10/05/18 12:10 10/05/18 13:30 10/06/18 03:35 White Blood Count 6.9 x10^3/uL (4.0-11.0) 3.9 x10^3/uL (4.0-11.0) Red Blood Count 4.39 x10^6/uL (3.50-5.40) 4.11 x10^6/uL (3.50-5.40) Hemoglobin 14.0 g/dL (12.0-15.5) 13.1 g/dL (12.0-15.5) Hematocrit 42.6 % (36.0-47.0) 39.6 % (36.0-47.0) Mean Corpuscular Volume 97 fL (79-100) 96 fL (79-100) Mean Corpuscular Hemoglobin 32 pg (25-35) 32 pg (25-35) Mean Corpuscular Hemoglobin Concent 33 g/dL (31-37) 33 g/dL (31-37) Red Cell Distribution Width 15.6 % (11.5-14.5) 15.3 % (11.5-14.5) Platelet Count 212 x10^3/uL (140-400) 197 x10^3/uL (140-400) Neutrophils (%) (Auto) 79 % (31-73) 86 % (31-73) Lymphocytes (%) (Auto) 13 % (24-48) 11 % (24-48) Monocytes (%) (Auto) 8 % (0-9) 2 % (0-9) Eosinophils (%) (Auto) 0 % (0-3) 0 % (0-3) Basophils (%) (Auto) 1 % (0-3) 0 % (0-3) Neutrophils # (Auto) 5.4 x10^3uL (1.8-7.7) 3.4 x10^3uL (1.8-7.7) Lymphocytes # (Auto) 0.9 x10^3/uL (1.0-4.8) 0.4 x10^3/uL (1.0-4.8) Monocytes # (Auto) 0.5 x10^3/uL (0.0-1.1) 0.1 x10^3/uL (0.0-1.1) Eosinophils # (Auto) 0.0 x10^3/uL (0.0-0.7) 0.0 x10^3/uL (0.0-0.7) Basophils # (Auto) 0.1 x10^3/uL (0.0-0.2) 0.0 x10^3/uL (0.0-0.2) Sodium Level 138 mmol/L (136-145) 138 mmol/L (136-145) Potassium Level 4.2 mmol/L (3.5-5.1) 4.4 mmol/L (3.5-5.1) Chloride Level 100 mmol/L (98-107) 101 mmol/L (98-107) Carbon Dioxide Level 28 mmol/L (21-32) 27 mmol/L (21-32) Anion Gap 10 (6-14) 10 (6-14) Blood Urea Nitrogen 9 mg/dL (7-20) 21 mg/dL (7-20) Creatinine 0.6 mg/dL (0.6-1.0) 0.7 mg/dL (0.6-1.0) Estimated GFR (Cockcroft-Gault) 95.0 79.5 BUN/Creatinine Ratio 15 (6-20) Glucose Level 91 mg/dL (70-99) 141 mg/dL (70-99) Calcium Level 9.1 mg/dL (8.5-10.1) 8.9 mg/dL (8.5-10.1) Total Bilirubin 0.7 mg/dL (0.2-1.0) Aspartate Amino Transf (AST/SGOT) 25 U/L (15-37) Alanine Aminotransferase (ALT/SGPT) 32 U/L (14-59) Alkaline Phosphatase 101 U/L (46-116) Total Protein 7.0 g/dL (6.4-8.2) Albumin 3.2 g/dL (3.4-5.0) Albumin/Globulin Ratio 0.8 (1.0-1.7) Urine Collection Type Unknown Urine Color Yellow Urine Clarity Clear Urine pH 7.0 Urine Specific [place] 1.010 Urine Protein Negative mg/dL (NEG-TRACE) Urine Glucose (UA) Negative mg/dL (NEG) Urine Ketones (Stick) Negative mg/dL (NEG) Urine Blood Negative (NEG) Urine Nitrite Negative (NEG) Urine Bilirubin Negative (NEG) Urine Urobilinogen Dipstick 0.2 mg/dL (0.2 mg/dL) Urine Leukocyte Esterase Moderate (NEG) Urine RBC Occ /HPF (0-2) Urine WBC >40 /HPF (0-4) Urine Bacteria Many /HPF (0-FEW) Segmented Neutrophils % 88 % (35-66) Lymphocytes % 9 % (24-48) Monocytes % 2 % (0-10) Eosinophils % 1 % (0-5) Platelet Estimate Adequate (ADEQUATE) Schistocytes Occ Laboratory Tests Test 10/05/18 13:30 10/06/18 03:35 Urine Collection Type Unknown Urine Color Yellow Urine Clarity Clear Urine pH 7.0 Urine Specific [place] 1.010 Urine Protein Negative mg/dL (NEG-TRACE) Urine Glucose (UA) Negative mg/dL (NEG) Urine Ketones (Stick) Negative mg/dL (NEG) Urine Blood Negative (NEG) Urine Nitrite Negative (NEG) Urine Bilirubin Negative (NEG) Urine Urobilinogen Dipstick 0.2 mg/dL (0.2 mg/dL) Urine Leukocyte Esterase Moderate (NEG) Urine RBC Occ /HPF (0-2) Urine WBC >40 /HPF (0-4) Urine Bacteria Many /HPF (0-FEW) White Blood Count 3.9 x10^3/uL (4.0-11.0) Red Blood Count 4.11 x10^6/uL (3.50-5.40) Hemoglobin 13.1 g/dL (12.0-15.5) Hematocrit 39.6 % (36.0-47.0) Mean Corpuscular Volume 96 fL (79-100) Mean Corpuscular Hemoglobin 32 pg (25-35) Mean Corpuscular Hemoglobin Concent 33 g/dL (31-37) Red Cell Distribution Width 15.3 % (11.5-14.5) Platelet Count 197 x10^3/uL (140-400) Neutrophils (%) (Auto) 86 % (31-73) Lymphocytes (%) (Auto) 11 % (24-48) Monocytes (%) (Auto) 2 % (0-9) Eosinophils (%) (Auto) 0 % (0-3) Basophils (%) (Auto) 0 % (0-3) Neutrophils # (Auto) 3.4 x10^3uL (1.8-7.7) Lymphocytes # (Auto) 0.4 x10^3/uL (1.0-4.8) Monocytes # (Auto) 0.1 x10^3/uL (0.0-1.1) Eosinophils # (Auto) 0.0 x10^3/uL (0.0-0.7) Basophils # (Auto) 0.0 x10^3/uL (0.0-0.2) Segmented Neutrophils % 88 % (35-66) Lymphocytes % 9 % (24-48) Monocytes % 2 % (0-10) Eosinophils % 1 % (0-5) Platelet Estimate Adequate (ADEQUATE) Schistocytes Occ Sodium Level 138 mmol/L (136-145) Potassium Level 4.4 mmol/L (3.5-5.1) Chloride Level 101 mmol/L (98-107) Carbon Dioxide Level 27 mmol/L (21-32) Anion Gap 10 (6-14) Blood Urea Nitrogen 21 mg/dL (7-20) Creatinine 0.7 mg/dL (0.6-1.0) Estimated GFR (Cockcroft-Gault) 79.5 Glucose Level 141 mg/dL (70-99) Calcium Level 8.9 mg/dL (8.5-10.1) Medications Active Scripts Medications Dose Route/Sig Max Daily Dose Days Date Category Hydrocodone-Apap 7.5-325 (Hydrocodone Bit/Acetaminophen) 1 Tab Tablet 1 Tab PO PRN Q4HRS PRN 10/05/18 Reported Ropinirole Hcl 2 Mg Tablet 2 Mg PO HS 10/05/18 Reported Amlodipine Besylate 5 Mg Tablet 5 Mg PO DAILY 10/05/18 Reported Ropinirole Hcl 1 Mg Tablet 1 Mg PO DAILYWSUP 10/05/18 Reported Duoneb 0.5-3(2.5) Mg/3 Ml (Albuterol/Ipratropium) 3 Ml Ampul.neb 1 INH PRN Q4-6HRS PRN 10/05/18 Reported Proair Respiclick (Albuterol Sulfate) 90 Mcg Aer.pow.ba 1 Puff INH PRN Q2-4HRS PRN 10/05/18 Reported Losartan Potassium 50 Mg Tablet 50 Mg PO DAILY 10/05/18 Reported Methotrexate (Methotrexate Sodium) 2.5 Mg Tablet 2.5 Mg PO DAILY 05/16/14 Reported Prilosec Otc (Omeprazole Magnesium) 20 Mg Tablet.dr 1 Tab PO DAILY 05/16/14 Reported Famotidine 40 Mg Tablet 40 Mg PO HS 05/16/14 Reported Impression . 1. Abnormal CT revealing bilateral infiltrates and right middle lobe consolidation. 2. Acute exacerbation of chronic obstructive pulmonary disease. 3. Pneumonia, suspect gram-negative, possibly gram-positive. 4. 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 on MTX/ Maggi Plan . 1. We will continue current antibiotics per ID 2. Follow clinical course 3. Repeat CT of the chest in 2 months. 4. Pt is very frail. Would hold off on Bronch for now unless does not respond to BS Abx d/w VASYL JOHNSTON MD Oct 06, 2018 13:26
[2018-10-06 15:00] VITALS: BP 122/64
--- NOTE | 2018-10-06 15:57 | NUR ---
SW following pt for anticipated dc needs. Chart reviewed. Pt lives at home with spouse/family. Rehab screen recommends PT/OT order. SW requested for PT/OT eval and tx order to assess needs.
[2018-10-06] MEDS: rOPINIRole 1 MG TABLET. PO SCH ×2 (16:57→20:36)
[2018-10-06 19:00] VITALS: BP 107/67
[2018-10-06] MEDS: FAMOTIDINE 20 MG TABLET. PO SCH (20:36)
[2018-10-06] MEDS: ZOLPIDEM 5 MG TABLET. PO PRN (20:42)
[2018-10-06 23:00] VITALS: BP 117/72
--- NOTE | 2018-10-07 01:16 | CONS ---
DATE OF CONSULTATION: 10/06/2018 INFECTIOUS DISEASE CONSULTATION LOCATION: The patient's room is 521. REQUESTING PHYSICIAN: Dr. Jesus. REASON FOR CONSULTATION: Pneumonia. HISTORY OF PRESENT ILLNESS: The patient is a pleasant 83-year-old female with history of psoriatic arthritis, on some immunosuppression. She was seen in the outpatient setting by Dr. Talbot and was placed on azithromycin secondary to cough, productive sputum as well as increased shortness of air and weakness. She completed 4 days of azithromycin, but continued to worsen. She does have a history of COPD. She is now being admitted secondary to worsening shortness of air. She did have some sweats and some chills. No gross sinus changes. No fevers or , but she has been weak. She has no chest pain. No vomiting. Occasional nausea. No dysuria, although her urine had been cloudy and she had been going more frequently. No rashes, no trauma. She was placed on azithromycin, Rocephin and Zyvox was added yesterday. A chest x-ray was consistent with a right middle lobe infiltrate. She has since undergone a CT scan of her chest, which showed emphysema; new scattered mild parenchymal opacities in the right middle lobe and lingula, most likely inflammatory in nature; mild dense atelectasis and consolidation medial in the right middle lobe. Currently, the patient is up and walking. She feels slightly better today than she had previously. PAST MEDICAL HISTORY: Positive for COPD; gastroesophageal reflux disease; osteoporosis; osteoarthritis of her knee; psoriatic arthritis, for which she took Humira and methotrexate; immunosuppression; history of esophageal stricture with previous EGD; restless leg and overactive bladder. PAST SURGICAL HISTORY: Positive for open reduction and internal fixation of the right hip fracture, colostomy, hemorrhoidectomy, appendectomy and vocal nodule removal. REVIEW OF SYSTEMS: Otherwise negative, except as mentioned above. ALLERGIES: LISTED TO PENICILLIN, CAUSES A RASH. SOCIAL HISTORY: No alcohol. She has a history of smoking for 64 years. She is and has a very supportive family. FAMILY HISTORY: Noncontributory. CURRENT MEDICATIONS: Include azithromycin, Rocephin, Zyvox, amlodipine, Pepcid, albuterol, Atrovent, Solu-Medrol, ondansetron, Protonix and Requip. PHYSICAL EXAMINATION: VITAL SIGNS: Temperature 97.7, pulse 97, respiratory rate 18, blood pressure 110/67 and satting 93 on 2 liters. CONSTITUTIONAL: She was ambulating about the room. When I came in, she sat down without complications. HEENT: Oral cavity, pharynx has some questionable dentition. Pupils are equal and reactive. NECK: Supple. She is kyphotic. LUNGS: Decreased in the bases. No gross wheeze. HEART: S1, S2. ABDOMEN: Soft, nontender. No distention, no guarding. EXTREMITIES: No clubbing, cyanosis or gross edema. SKIN: Warm to touch, without signs of rash. NEUROLOGIC: She is nonfocal, ambulating about the room. PSYCHIATRIC: Affect is pleasant. LABORATORY DATA: Today, white count 3.9, down from 6.9; hemoglobin 13.1; platelets of 197,000; segs 88 and lymphs are 9. Creatinine of 0.7, glucose of 141. She had normal liver function study tests. Urinalysis questionable for recurrent urinary tract infection. Radiology reviewed in the history of present illness. IMPRESSION: 1. Pneumonia, on azithromycin prior to admission. 2. PENICILLIN ALLERGY, tolerating Rocephin. 3. Immunosuppression with psoriatic arthritis, on steroids now. 4. Questionable urinary tract infection present on admission. RECOMMENDATIONS: We will discontinue azithromycin as she was on it prior to admission and she worsened. She also completed 5 days. We will continue the Zyvox. Discontinue the ceftriaxone and add cefepime. We will follow up labs and cultures, as discussed with the family. Thank you for asking us to participate in the patient's care. Should you have any questions, please do not hesitate to contact me. ARELIS RAINES MD DR: TAI/kaveh JOB#: [id number] / [id number]
[2018-10-07] MEDS: methylPREDNISolone SOD SUCC PF 40 MG/ML VIAL. IV SCH ×3 (05:57→21:59)
[2018-10-07 07:00] VITALS: BP 126/74
[2018-10-07] MEDS: PANTOPRAZOLE 40 MG TABLET.DR. PO SCH (07:46)
[2018-10-07] MEDS: IPRATRPIUM/ALBUTEROL 0.5/2.5MG 3 ML NEBU. NEB SCH (07:49)
[2018-10-07 08:45] VITALS: BP 133/66
[2018-10-07] MEDS: LOSARTAN POTASSIUM 50 MG TABLET. PO SCH (08:47)
[2018-10-07] MEDS: LINEZOLID 600 MG TABLET PO SCH ×2 (08:47→21:05)
[2018-10-07] MEDS: amLODIPine BESYLATE 5 MG TABLET PO SCH (08:48)
[2018-10-07] MEDS: CEFEPIME HCL IV Push 1 GM VIAL. IVP SCH ×3 (08:48→21:59)
--- NOTE | 2018-10-07 10:14 | PDOC ---
PROGRESS NOTES Subjective Subjective has a dry cough. afebrile. bp okay. declines nebulizer rx as it makes her agitated. discussed with patient and dr. Talbot who recommends holding off on bronchoscopy as she is frail and sedation would be risky. he recommended a ct chest in 6 weeks. Objective Objective Vital Signs Date Time Temp Pulse Resp B/P (MAP) Pulse Ox O2 Delivery O2 Flow Rate FiO2 10/07/18 08:48 88 133/66 10/07/18 08:45 20 91 Room Air 10/07/18 07:00 97.6 97.6 10/06/18 13:38 2.0 Intake and Output 10/07/18 06:59 Intake Total 400 ml Balance 400 ml Intake Oral 400 ml # Voids 5 Physical Exam Abdomen: Soft Heart: Regular rate, Normal S1, Normal S2 Extremities: No edema General: Alert HEENT: Atraumatic Lungs: Other (decreased breath sounds) Neuro: Normal speech Psych/Mental Status: Mental status NL Skin: No rashes Assessment Assessment 1. Right middle lobe pneumonia. 2. Chronic obstructive pulmonary disease exacerbation secondary to pneumonia. 3. Hypertension. 4. Gastroesophageal reflux disease. 5. Psoriatic arthritis. 6. 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 pyuria Plan Plan of Care continue iv cefepime and zyvox decrease solumedrol labs tomorrow d/c nebulizer rx Comment Review of Relevant I have reviewed the following items anette (where applicable) has been applied. Labs Laboratory Tests Test 10/05/18 12:10 10/05/18 13:30 10/06/18 03:35 White Blood Count 6.9 x10^3/uL (4.0-11.0) 3.9 x10^3/uL (4.0-11.0) Red Blood Count 4.39 x10^6/uL (3.50-5.40) 4.11 x10^6/uL (3.50-5.40) Hemoglobin 14.0 g/dL (12.0-15.5) 13.1 g/dL (12.0-15.5) Hematocrit 42.6 % (36.0-47.0) 39.6 % (36.0-47.0) Mean Corpuscular Volume 97 fL (79-100) 96 fL (79-100) Mean Corpuscular Hemoglobin 32 pg (25-35) 32 pg (25-35) Mean Corpuscular Hemoglobin Concent 33 g/dL (31-37) 33 g/dL (31-37) Red Cell Distribution Width 15.6 % (11.5-14.5) 15.3 % (11.5-14.5) Platelet Count 212 x10^3/uL (140-400) 197 x10^3/uL (140-400) Neutrophils (%) (Auto) 79 % (31-73) 86 % (31-73) Lymphocytes (%) (Auto) 13 % (24-48) 11 % (24-48) Monocytes (%) (Auto) 8 % (0-9) 2 % (0-9) Eosinophils (%) (Auto) 0 % (0-3) 0 % (0-3) Basophils (%) (Auto) 1 % (0-3) 0 % (0-3) Neutrophils # (Auto) 5.4 x10^3uL (1.8-7.7) 3.4 x10^3uL (1.8-7.7) Lymphocytes # (Auto) 0.9 x10^3/uL (1.0-4.8) 0.4 x10^3/uL (1.0-4.8) Monocytes # (Auto) 0.5 x10^3/uL (0.0-1.1) 0.1 x10^3/uL (0.0-1.1) Eosinophils # (Auto) 0.0 x10^3/uL (0.0-0.7) 0.0 x10^3/uL (0.0-0.7) Basophils # (Auto) 0.1 x10^3/uL (0.0-0.2) 0.0 x10^3/uL (0.0-0.2) Sodium Level 138 mmol/L (136-145) 138 mmol/L (136-145) Potassium Level 4.2 mmol/L (3.5-5.1) 4.4 mmol/L (3.5-5.1) Chloride Level 100 mmol/L (98-107) 101 mmol/L (98-107) Carbon Dioxide Level 28 mmol/L (21-32) 27 mmol/L (21-32) Anion Gap 10 (6-14) 10 (6-14) Blood Urea Nitrogen 9 mg/dL (7-20) 21 mg/dL (7-20) Creatinine 0.6 mg/dL (0.6-1.0) 0.7 mg/dL (0.6-1.0) Estimated GFR (Cockcroft-Gault) 95.0 79.5 BUN/Creatinine Ratio 15 (6-20) Glucose Level 91 mg/dL (70-99) 141 mg/dL (70-99) Calcium Level 9.1 mg/dL (8.5-10.1) 8.9 mg/dL (8.5-10.1) Total Bilirubin 0.7 mg/dL (0.2-1.0) Aspartate Amino Transf (AST/SGOT) 25 U/L (15-37) Alanine Aminotransferase (ALT/SGPT) 32 U/L (14-59) Alkaline Phosphatase 101 U/L (46-116) Total Protein 7.0 g/dL (6.4-8.2) Albumin 3.2 g/dL (3.4-5.0) Albumin/Globulin Ratio 0.8 (1.0-1.7) Urine Collection Type Unknown Urine Color Yellow Urine Clarity Clear Urine pH 7.0 Urine Specific [place] 1.010 Urine Protein Negative mg/dL (NEG-TRACE) Urine Glucose (UA) Negative mg/dL (NEG) Urine Ketones (Stick) Negative mg/dL (NEG) Urine Blood Negative (NEG) Urine Nitrite Negative (NEG) Urine Bilirubin Negative (NEG) Urine Urobilinogen Dipstick 0.2 mg/dL (0.2 mg/dL) Urine Leukocyte Esterase Moderate (NEG) Urine RBC Occ /HPF (0-2) Urine WBC >40 /HPF (0-4) Urine Bacteria Many /HPF (0-FEW) Segmented Neutrophils % 88 % (35-66) Lymphocytes % 9 % (24-48) Monocytes % 2 % (0-10) Eosinophils % 1 % (0-5) Platelet Estimate Adequate (ADEQUATE) Schistocytes Occ Microbiology 10/05/18 Gram Stain - Final, Complete Medications Current Medications Methylprednisolone Sodium Succinate (SOLU-Medrol 40MG VIAL) 40 mg Q8HRS IV Last administered on 10/07/18at 05:57; Start 10/05/18 at 14:00 Albuterol/ Ipratropium (Duoneb) 3 ml RTQID NEB ; Start 10/05/18 at 12:00 Amlodipine Besylate (Norvasc) 5 mg DAILY PO Last administered on 10/07/18 08:48 ; Start 10/05/18 at 13:00 Acetaminophen/ Hydrocodone Bitart (Lortab 7.5/325) 1 tab PRN Q4HRS PRN PO PAIN Last administered on 10/06/18 12:33; Start 10/05/18 at 12:00 Losartan Potassium (Cozaar) 50 mg DAILY PO Last administered on 10/07/18 08:47 ; Start 10/05/18 at 13:00 Famotidine (Pepcid) 40 mg HS PO Last administered on 10/06/18 20:36; Start 10/05 at 21:00 Ropinirole HCl (Requip) 1 mg DAILYWSUP PO Last administered on 10/06/18 16:57; Start 10/05/18 at 17:00 Ropinirole HCl (Requip) 2 mg HS PO Last administered on 10/06/18 20:36; Start 10/05/18 at 21:00 Pantoprazole Sodium (Protonix) 40 mg DAILYAC PO Last administered on 10/07/18 07:46; Start 10/06/18 at 07:30 Acetaminophen (Tylenol) 650 mg PRN Q6HRS PRN PO MILD PAIN / TEMP; Start at 12:00 Magnesium Hydroxide (Milk Of Magnesia) 2,400 mg PRN DAILY PRN PO CONSTIPATION; Start 10/05/18 at 12:00 Levofloxacin (Levaquin) 500 mg Q24H PO Last administered on 10/05/18 12:58; Start 10/05/18 at 13:00; Stop 10/05/18 at 16:28; Status DC Ceftriaxone Sodium (Rocephin) 1 gm Q24H IVP Last administered on 10/05/18 17:07 ; Start 10/05/18 at 17:00; Stop 10/06/18 at 11:56; Status DC Azithromycin (Zithromax) 250 mg DAILY PO Last administered on 10/06/18 08:48; Start 10/05/18 at 17:00; Stop 10/06/18 at 11:56; Status DC Ondansetron HCl (Zofran Odt) 4 mg PRN Q6HRS PRN PO NAUSEA/VOMITING Last administered on 10/05/18 21:21; Start 10/05/18 at 16:30 Linezolid (Zyvox) 600 mg BID PO Last administered on 10/07/18 08:47; Start 10/05 at 18:00 Zolpidem Tartrate (Ambien) 5 mg PRN QHS PRN PO INSOMNIA Last administered on 20:42; Start 10/05/18 at 18:30 Cefepime HCl (Maxipime) 1 gm Q12HR IVP Last administered on 10/07/18 08:48; Start 10/06/18 at 12:00 Active Scripts Active Reported Hydrocodone-Apap 7.5-325 (Hydrocodone Bit/Acetaminophen) 1 Tab Tablet 1 Tab PO PRN Q4HRS PRN Ropinirole Hcl 2 Mg Tablet 2 Mg PO HS Amlodipine Besylate 5 Mg Tablet 5 Mg PO DAILY Ropinirole Hcl 1 Mg Tablet 1 Mg PO DAILYWSUP Duoneb 0.5-3(2.5) Mg/3 Ml (Albuterol/Ipratropium) 3 Ml Ampul.neb 1 INH PRN Q4- 6HRS PRN Proair Respiclick (Albuterol Sulfate) 90 Mcg Aer.pow.ba 1 Puff INH PRN Q2-4HRS PRN Losartan Potassium 50 Mg Tablet 50 Mg PO DAILY Methotrexate (Methotrexate Sodium) 2.5 Mg Tablet 2.5 Mg PO DAILY Prilosec Otc (Omeprazole Magnesium) 20 Mg Tablet. 1 Tab PO DAILY Famotidine 40 Mg Tablet 40 Mg PO HS Vitals/I & O Vital Sign - Last 24 Hours 10/06/18 10/06/18 10/06/18 10/06/18 11:00 12:33 13:38 15:00 Temp 97.7 97.9 97.7 97.9 Pulse 97 85 Resp 18 18 B/P (MAP) 110/67 (81) 122/64 (83) Pulse Ox 93 93 90 O2 Delivery Nasal Cannula Room Air Nasal Cannula Room Air O2 Flow Rate 2.0 2.0 10/06/18 10/06/18 10/06/18 10/07/18 19:00 20:00 23:00 07:00 Temp 98.0 97.9 97.6 98.0 97.9 97.6 Pulse 87 82 88 Resp 18 20 20 B/P (MAP) 107/67 (80) 117/72 (87) 126/74 (91) Pulse Ox 90 90 90 O2 Delivery Room Air Room Air Room Air Room Air 10/07/18 10/07/18 10/07/18 10/07/18 07:50 08:00 08:45 08:47 Pulse 88 Resp 20 B/P (MAP) 133/66 (88) 133/66 Pulse Ox 90 91 O2 Delivery Room Air Room Air Room Air 10/07/18 08:48 Pulse 88 B/P (MAP) 133/66 Intake and Output 10/06/18 10/06/18 10/07/18 14:59 22:59 06:59 Intake Total 400 ml Balance 400 ml HIPOLITO SCHAFER MD Oct 07, 2018 10:14
[2018-10-07 11:00] VITALS: BP 136/68
[2018-10-07] MEDS ORDERED: POLYETHYLENE GLYCOL 3350 17 GM PACKET. PO SCH (11:00)
--- NOTE | 2018-10-07 11:28 | PDOC ---
PULMONARY PROGRESS NOTES Subjective unable to cough up sputum c/o shakiness with nebs Vitals Vital Signs Date Time Temp Pulse Resp B/P (MAP) Pulse Ox O2 Delivery O2 Flow Rate FiO2 10/07/18 11:00 97.7 86 18 136/68 (90) 90 Room Air 97.7 10/06/18 13:38 2.0 ROS: No Chest Pain, No Increase Cough General: Alert, No acute distress Lungs: Other (decrease bs) Cardiovascular: S1 Abdomen: Soft Neuro Exam: Alert Extremities: No Edema Skin: Warm Labs Laboratory Tests Test 10/05/18 12:10 10/05/18 13:30 10/06/18 03:35 White Blood Count 6.9 x10^3/uL (4.0-11.0) 3.9 x10^3/uL (4.0-11.0) Red Blood Count 4.39 x10^6/uL (3.50-5.40) 4.11 x10^6/uL (3.50-5.40) Hemoglobin 14.0 g/dL (12.0-15.5) 13.1 g/dL (12.0-15.5) Hematocrit 42.6 % (36.0-47.0) 39.6 % (36.0-47.0) Mean Corpuscular Volume 97 fL (79-100) 96 fL (79-100) Mean Corpuscular Hemoglobin 32 pg (25-35) 32 pg (25-35) Mean Corpuscular Hemoglobin Concent 33 g/dL (31-37) 33 g/dL (31-37) Red Cell Distribution Width 15.6 % (11.5-14.5) 15.3 % (11.5-14.5) Platelet Count 212 x10^3/uL (140-400) 197 x10^3/uL (140-400) Neutrophils (%) (Auto) 79 % (31-73) 86 % (31-73) Lymphocytes (%) (Auto) 13 % (24-48) 11 % (24-48) Monocytes (%) (Auto) 8 % (0-9) 2 % (0-9) Eosinophils (%) (Auto) 0 % (0-3) 0 % (0-3) Basophils (%) (Auto) 1 % (0-3) 0 % (0-3) Neutrophils # (Auto) 5.4 x10^3uL (1.8-7.7) 3.4 x10^3uL (1.8-7.7) Lymphocytes # (Auto) 0.9 x10^3/uL (1.0-4.8) 0.4 x10^3/uL (1.0-4.8) Monocytes # (Auto) 0.5 x10^3/uL (0.0-1.1) 0.1 x10^3/uL (0.0-1.1) Eosinophils # (Auto) 0.0 x10^3/uL (0.0-0.7) 0.0 x10^3/uL (0.0-0.7) Basophils # (Auto) 0.1 x10^3/uL (0.0-0.2) 0.0 x10^3/uL (0.0-0.2) Sodium Level 138 mmol/L (136-145) 138 mmol/L (136-145) Potassium Level 4.2 mmol/L (3.5-5.1) 4.4 mmol/L (3.5-5.1) Chloride Level 100 mmol/L (98-107) 101 mmol/L (98-107) Carbon Dioxide Level 28 mmol/L (21-32) 27 mmol/L (21-32) Anion Gap 10 (6-14) 10 (6-14) Blood Urea Nitrogen 9 mg/dL (7-20) 21 mg/dL (7-20) Creatinine 0.6 mg/dL (0.6-1.0) 0.7 mg/dL (0.6-1.0) Estimated GFR (Cockcroft-Gault) 95.0 79.5 BUN/Creatinine Ratio 15 (6-20) Glucose Level 91 mg/dL (70-99) 141 mg/dL (70-99) Calcium Level 9.1 mg/dL (8.5-10.1) 8.9 mg/dL (8.5-10.1) Total Bilirubin 0.7 mg/dL (0.2-1.0) Aspartate Amino Transf (AST/SGOT) 25 U/L (15-37) Alanine Aminotransferase (ALT/SGPT) 32 U/L (14-59) Alkaline Phosphatase 101 U/L (46-116) Total Protein 7.0 g/dL (6.4-8.2) Albumin 3.2 g/dL (3.4-5.0) Albumin/Globulin Ratio 0.8 (1.0-1.7) Urine Collection Type Unknown Urine Color Yellow Urine Clarity Clear Urine pH 7.0 Urine Specific [place] 1.010 Urine Protein Negative mg/dL (NEG-TRACE) Urine Glucose (UA) Negative mg/dL (NEG) Urine Ketones (Stick) Negative mg/dL (NEG) Urine Blood Negative (NEG) Urine Nitrite Negative (NEG) Urine Bilirubin Negative (NEG) Urine Urobilinogen Dipstick 0.2 mg/dL (0.2 mg/dL) Urine Leukocyte Esterase Moderate (NEG) Urine RBC Occ /HPF (0-2) Urine WBC >40 /HPF (0-4) Urine Bacteria Many /HPF (0-FEW) Segmented Neutrophils % 88 % (35-66) Lymphocytes % 9 % (24-48) Monocytes % 2 % (0-10) Eosinophils % 1 % (0-5) Platelet Estimate Adequate (ADEQUATE) Schistocytes Occ Medications Active Scripts Medications Dose Route/Sig Max Daily Dose Days Date Category Hydrocodone-Apap 7.5-325 (Hydrocodone Bit/Acetaminophen) 1 Tab Tablet 1 Tab PO PRN Q4HRS PRN 10/05/18 Reported Ropinirole Hcl 2 Mg Tablet 2 Mg PO HS 10/05/18 Reported Amlodipine Besylate 5 Mg Tablet 5 Mg PO DAILY 10/05/18 Reported Ropinirole Hcl 1 Mg Tablet 1 Mg PO DAILYWSUP 10/05/18 Reported Duoneb 0.5-3(2.5) Mg/3 Ml (Albuterol/Ipratropium) 3 Ml Ampul.neb 1 INH PRN Q4-6HRS PRN 10/05/18 Reported Proair Respiclick (Albuterol Sulfate) 90 Mcg Aer.pow.ba 1 Puff INH PRN Q2-4HRS PRN 10/05/18 Reported Losartan Potassium 50 Mg Tablet 50 Mg PO DAILY 10/05/18 Reported Methotrexate (Methotrexate Sodium) 2.5 Mg Tablet 2.5 Mg PO DAILY 05/16/14 Reported Prilosec Otc (Omeprazole Magnesium) 20 Mg Tablet.dr 1 Tab PO DAILY 05/16/14 Reported Famotidine 40 Mg Tablet 40 Mg PO HS 05/16/14 Reported Impression . 1. Abnormal CT revealing bilateral infiltrates and right middle lobe consolidation. 2. Acute exacerbation of chronic obstructive pulmonary disease. 3. Pneumonia, suspect gram-negative, possibly gram-positive. 4. 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 on MTX/ Maggi Plan . 1. We will continue current antibiotics per ID 2. Follow clinical course 3. Repeat CT of the chest in 2 months. 4. Pt is very frail. Would hold off on Bronch for now unless does not respond to BS Abx 5. Add mucinex 6. change nebs to atrovent only d/w RN / DR SCHAFER likely dc home friday VASYL LAM MD Oct 07, 2018 11:28
--- NOTE | 2018-10-07 11:37 | PDOC ---
Infectious Disease Note Subjective Subjective Feeling better but can't clear secretions No F/C/S/N/V/D/RASH/ SOA better ROS ROS o/w neg Vital Sign Vital Signs Vital Signs Date Time Temp Pulse Resp B/P (MAP) Pulse Ox O2 Delivery O2 Flow Rate FiO2 10/07/18 11:00 97.7 86 18 136/68 (90) 90 Room Air 97.7 10/06/18 13:38 2.0 Physical Exam PHYSICAL EXAM CONSTITUTIONAL: She is in chair and looks better HEENT: Oral cavity, pharynx has some questionable dentition. Pupils are equal and reactive. NECK: Supple. She is kyphotic. LUNGS: Decreased in the bases. No gross wheeze. HEART: S1, S2. ABDOMEN: Soft, nontender. No distention, no guarding. EXTREMITIES: No clubbing, cyanosis or gross edema. SKIN: Warm to touch, without signs of rash. NEUROLOGIC: She is nonfocal, ambulating about the room. PSYCHIATRIC: Affect is pleasant Labs Micro Microbiology 10/05/18 Gram Stain - Final, Complete Objective Assessment Pneumonia - on Azithromycin prior to admit PCN allergy - tolerating Rocephin Immunosuppression with psoraric arthritis on steroid now ? UTI - POA Plan Plan of Care Cont Zyvox/Cefepime F/u labs and cults ARELIS RAINES MD Oct 07, 2018 11:37
[2018-10-07] MEDS: IPRATROPIUM BROMIDE 0.5 MG/2.5 ML NEBU. NEB SCH ×2 (12:00→20:00)
[2018-10-07 14:58] VITALS: BP 96/57
[2018-10-07] MEDS: HYDROcodone/APAP 7.5/325MG 1 TAB TABLET PO PRN (15:01)
[2018-10-07] MEDS: rOPINIRole 1 MG TABLET. PO SCH ×2 (17:46→21:05)
[2018-10-07 19:00] VITALS: BP 140/69
[2018-10-07] MEDS: FAMOTIDINE 20 MG TABLET. PO SCH (21:06)
[2018-10-07] MEDS: ZOLPIDEM 5 MG TABLET. PO PRN (21:06)
[2018-10-07] MEDS ORDERED: POLYETHYLENE GLYCOL 3350 17 GM PACKET. PO PRN (21:45)
[2018-10-07 23:00] VITALS: BP 143/74
[2018-10-08] MEDS: HYDROcodone/APAP 7.5/325MG 1 TAB TABLET PO PRN ×4 (04:54→22:02)
[2018-10-08 05:06] LABS: CALCIUM 8.8 mg/dL (8.5-10.1); CREATININE 0.6 mg/dL (0.6-1.0); POTASSIUM 5.1 mmol/L (3.5-5.1)
[2018-10-08 07:00] VITALS: BP 128/58
[2018-10-08] MEDS: IPRATROPIUM BROMIDE 0.5 MG/2.5 ML NEBU. NEB SCH ×4 (07:17→20:00)
[2018-10-08] MEDS: CEFEPIME HCL IV Push 1 GM VIAL. IVP SCH ×2 (08:05→22:03)
[2018-10-08] MEDS: methylPREDNISolone SOD SUCC PF 40 MG/ML VIAL. IV SCH (08:05)
[2018-10-08] MEDS: LOSARTAN POTASSIUM 50 MG TABLET. PO SCH (08:06)
[2018-10-08] MEDS: amLODIPine BESYLATE 5 MG TABLET PO SCH (08:07)
[2018-10-08] MEDS: PANTOPRAZOLE 40 MG TABLET.DR. PO SCH (08:07)
--- NOTE | 2018-10-08 09:08 | PDOC ---
Infectious Disease Note Subjective Subjective Feeling better but can't clear secretions No F/C/S/N/V/D/RASH/ SOA better Vital Sign Vital Signs Vital Signs Date Time Temp Pulse Resp B/P (MAP) Pulse Ox O2 Delivery O2 Flow Rate FiO2 10/08/18 08:07 75 143/74 10/08/18 08:00 Room Air 2.0 10/08/18 07:22 99 10/08/18 07:00 98.0 18 98.0 Physical Exam PHYSICAL EXAM CONSTITUTIONAL: She is in chair and looks better HEENT: Oral cavity, pharynx has some questionable dentition. Pupils are equal and reactive. NECK: Supple. She is kyphotic. LUNGS: Decreased in the bases. No gross wheeze. HEART: S1, S2. ABDOMEN: Soft, nontender. No distention, no guarding. EXTREMITIES: No clubbing, cyanosis or gross edema. SKIN: Warm to touch, without signs of rash. NEUROLOGIC: She is nonfocal, ambulating about the room. PSYCHIATRIC: Affect is pleasant Labs Lab Laboratory Tests Test 10/08/18 03:10 Sodium Level 139 mmol/L (136-145) Potassium Level 5.1 mmol/L (3.5-5.1) Chloride Level 103 mmol/L (98-107) Carbon Dioxide Level 24 mmol/L (21-32) Anion Gap 12 (6-14) Blood Urea Nitrogen 36 mg/dL (7-20) Creatinine 0.6 mg/dL (0.6-1.0) Estimated GFR (Cockcroft-Gault) 95.0 Glucose Level 122 mg/dL (70-99) Calcium Level 8.8 mg/dL (8.5-10.1) Micro Microbiology 10/05/18 Gram Stain - Final, Complete Objective Assessment Pneumonia - on Azithromycin prior to admit PCN allergy - tolerating Rocephin Immunosuppression with psoraric arthritis on steroid now Ecoli UTI - POA 10/05 Plan Plan of Care Cont Zyvox/Cefepime F/u labs and cults ARELIS RAINES MD Oct 08, 2018 09:08
[2018-10-08 09:16] LABS: BASO % 0 % (0-3); EOS % 0 % (0-3); HEMATOCRIT 41.4 % (36.0-47.0); HEMOGLOBIN 13.6 g/dL (12.0-15.5); LYMPH % 7 % (24-48); MEAN CORPUSCULAR HEMOGLOBIN 32 pg (25-35); MEAN CORPUSCULAR HGB CONC 33 g/dL (31-37); MEAN CORPUSCULAR VOLUME 97 fL (79-100); MONO # 0.5 x10^3/uL (0.0-1.1); MONO % 3 % (0-9); NEUT # 12.7 x10^3uL (1.8-7.7); NEUT % 90 % (31-73); PLATELET COUNT 287 x10^3/uL (140-400); RED BLOOD COUNT 4.26 x10^6/uL (3.50-5.40); RED CELL DISTRIBUTION WIDTH 15.2 % (11.5-14.5); WHITE BLOOD COUNT 14.2 x10^3/uL (4.0-11.0)
--- NOTE | 2018-10-08 09:17 | NUR ---
SW following pt. PT recommends SNU and OT recommends HH. Spoke with pt regarding goals for dc and discussed SNU vs HH. Pt reports she has been to SNU in the past and would just like to go home. Pt also declined HH reporting her daughter will be helping her a lot more. Pt was ambulating independently in room when SW visited. Pt reports she does not have home 02 and might need a 6 min walk to eval home 02 needs.
[2018-10-08] MEDS: LINEZOLID 600 MG TABLET PO SCH ×2 (09:36→22:01)
[2018-10-08 11:00] VITALS: BP 130/60
--- NOTE | 2018-10-08 12:17 | PDOC ---
PULMONARY PROGRESS NOTES Subjective unable to cough up sputum loose stools today Vitals Vital Signs Date Time Temp Pulse Resp B/P (MAP) Pulse Ox O2 Delivery O2 Flow Rate FiO2 10/08/18 11:20 Room Air 10/08/18 10:53 14 10/08/18 08:07 75 143/74 10/08/18 08:00 2.0 10/08/18 07:22 99 10/08/18 07:00 98.0 98.0 ROS: No Chest Pain, No Increase Cough General: Alert, No acute distress Lungs: Other (decrease bs) Cardiovascular: S1 Abdomen: Soft Neuro Exam: Alert Extremities: No Edema Skin: Warm Labs Laboratory Tests Test 10/08/18 03:10 10/08/18 09:00 Sodium Level 139 mmol/L (136-145) Potassium Level 5.1 mmol/L (3.5-5.1) Chloride Level 103 mmol/L (98-107) Carbon Dioxide Level 24 mmol/L (21-32) Anion Gap 12 (6-14) Blood Urea Nitrogen 36 mg/dL (7-20) Creatinine 0.6 mg/dL (0.6-1.0) Estimated GFR (Cockcroft-Gault) 95.0 Glucose Level 122 mg/dL (70-99) Calcium Level 8.8 mg/dL (8.5-10.1) White Blood Count 14.2 x10^3/uL (4.0-11.0) Red Blood Count 4.26 x10^6/uL (3.50-5.40) Hemoglobin 13.6 g/dL (12.0-15.5) Hematocrit 41.4 % (36.0-47.0) Mean Corpuscular Volume 97 fL (79-100) Mean Corpuscular Hemoglobin 32 pg (25-35) Mean Corpuscular Hemoglobin Concent 33 g/dL (31-37) Red Cell Distribution Width 15.2 % (11.5-14.5) Platelet Count 287 x10^3/uL (140-400) Neutrophils (%) (Auto) 90 % (31-73) Lymphocytes (%) (Auto) 7 % (24-48) Monocytes (%) (Auto) 3 % (0-9) Eosinophils (%) (Auto) 0 % (0-3) Basophils (%) (Auto) 0 % (0-3) Neutrophils # (Auto) 12.7 x10^3uL (1.8-7.7) Lymphocytes # (Auto) 1.0 x10^3/uL (1.0-4.8) Monocytes # (Auto) 0.5 x10^3/uL (0.0-1.1) Eosinophils # (Auto) 0.0 x10^3/uL (0.0-0.7) Basophils # (Auto) 0.0 x10^3/uL (0.0-0.2) Laboratory Tests Test 10/08/18 03:10 10/08/18 09:00 Sodium Level 139 mmol/L (136-145) Potassium Level 5.1 mmol/L (3.5-5.1) Chloride Level 103 mmol/L (98-107) Carbon Dioxide Level 24 mmol/L (21-32) Anion Gap 12 (6-14) Blood Urea Nitrogen 36 mg/dL (7-20) Creatinine 0.6 mg/dL (0.6-1.0) Estimated GFR (Cockcroft-Gault) 95.0 Glucose Level 122 mg/dL (70-99) Calcium Level 8.8 mg/dL (8.5-10.1) White Blood Count 14.2 x10^3/uL (4.0-11.0) Red Blood Count 4.26 x10^6/uL (3.50-5.40) Hemoglobin 13.6 g/dL (12.0-15.5) Hematocrit 41.4 % (36.0-47.0) Mean Corpuscular Volume 97 fL (79-100) Mean Corpuscular Hemoglobin 32 pg (25-35) Mean Corpuscular Hemoglobin Concent 33 g/dL (31-37) Red Cell Distribution Width 15.2 % (11.5-14.5) Platelet Count 287 x10^3/uL (140-400) Neutrophils (%) (Auto) 90 % (31-73) Lymphocytes (%) (Auto) 7 % (24-48) Monocytes (%) (Auto) 3 % (0-9) Eosinophils (%) (Auto) 0 % (0-3) Basophils (%) (Auto) 0 % (0-3) Neutrophils # (Auto) 12.7 x10^3uL (1.8-7.7) Lymphocytes # (Auto) 1.0 x10^3/uL (1.0-4.8) Monocytes # (Auto) 0.5 x10^3/uL (0.0-1.1) Eosinophils # (Auto) 0.0 x10^3/uL (0.0-0.7) Basophils # (Auto) 0.0 x10^3/uL (0.0-0.2) Medications Active Scripts Medications Dose Route/Sig Max Daily Dose Days Date Category Hydrocodone-Apap 7.5-325 (Hydrocodone Bit/Acetaminophen) 1 Tab Tablet 1 Tab PO PRN Q4HRS PRN 10/05/18 Reported Ropinirole Hcl 2 Mg Tablet 2 Mg PO HS 10/05/18 Reported Amlodipine Besylate 5 Mg Tablet 5 Mg PO DAILY 10/05/18 Reported Ropinirole Hcl 1 Mg Tablet 1 Mg PO DAILYWSUP 10/05/18 Reported Duoneb 0.5-3(2.5) Mg/3 Ml (Albuterol/Ipratropium) 3 Ml Ampul.neb 1 INH PRN Q4-6HRS PRN 10/05/18 Reported Proair Respiclick (Albuterol Sulfate) 90 Mcg Aer.pow.ba 1 Puff INH PRN Q2-4HRS PRN 10/05/18 Reported Losartan Potassium 50 Mg Tablet 50 Mg PO DAILY 10/05/18 Reported Methotrexate (Methotrexate Sodium) 2.5 Mg Tablet 2.5 Mg PO DAILY 05/16/14 Reported Prilosec Otc (Omeprazole Magnesium) 20 Mg Tablet. 1 Tab PO DAILY 05/16/14 Reported Famotidine 40 Mg Tablet 40 Mg PO HS 05/16/14 Reported Impression . 1. Abnormal CT revealing bilateral infiltrates and right middle lobe consolidation. 2. Acute exacerbation of chronic obstructive pulmonary disease. 3. Pneumonia, suspect gram-negative, possibly gram-positive. 4. 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 on MTX/ Maggi 5. Loose stools, antibiotic related 6. E-Coli UTI/ Wallace sensitive Plan . 1. antibiotics per ID/ consider change to PO 2. Follow clinical course 3. Repeat CT of the chest in 2 months. appointment given with DR Yun in November with ct chest prior 4. Pt is very frail. Would hold off on Bronch for now unless does not respond to BS Abx 5. Added mucinex 6. changed nebs to atrovent only d/w RN / DR Rossi likely dc home friday VASYL LAM MD Oct 08, 2018 12:17
--- NOTE | 2018-10-08 12:51 | PDOC ---
PROGRESS NOTES Subjective Subjective feels better. dry cough. has loose stools.lab reviewed. Objective Objective Vital Signs Date Time Temp Pulse Resp B/P (MAP) Pulse Ox O2 Delivery O2 Flow Rate FiO2 10/08/18 11:20 Room Air 10/08/18 10:53 14 10/08/18 08:07 75 143/74 10/08/18 08:00 2.0 10/08/18 07:22 99 10/08/18 07:00 98.0 98.0 Intake and Output 10/08/18 06:59 Intake Total 1370 ml Output Total 70 ml Balance 1300 ml Intake Oral 1370 ml Output Urine Total 50 ml Stool Total 20 ml # Voids 1 # Bowel Movements 5 Physical Exam Abdomen: Soft Heart: Regular rate, Normal S1, Normal S2 Extremities: No edema General: Alert HEENT: Atraumatic Lungs: Other (decreased breath sounds) Neuro: Normal speech Psych/Mental Status: Mental status NL Skin: No rashes Assessment Assessment 1. Right middle lobe pneumonia. 2. Chronic obstructive pulmonary disease exacerbation secondary to pneumonia. 3. Hypertension. 4. Gastroesophageal reflux disease. 5. Psoriatic arthritis. 6. 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 pyuria leukocytosis due to steroids diarrhea Plan Plan of Care continue iv zyvox and cefepime stool for c . diff toxin switch to prednisone taper Comment Review of Relevant I have reviewed the following items anette (where applicable) has been applied. Labs Laboratory Tests Test 10/08/18 03:10 10/08/18 09:00 Sodium Level 139 mmol/L (136-145) Potassium Level 5.1 mmol/L (3.5-5.1) Chloride Level 103 mmol/L (98-107) Carbon Dioxide Level 24 mmol/L (21-32) Anion Gap 12 (6-14) Blood Urea Nitrogen 36 mg/dL (7-20) Creatinine 0.6 mg/dL (0.6-1.0) Estimated GFR (Cockcroft-Gault) 95.0 Glucose Level 122 mg/dL (70-99) Calcium Level 8.8 mg/dL (8.5-10.1) White Blood Count 14.2 x10^3/uL (4.0-11.0) Red Blood Count 4.26 x10^6/uL (3.50-5.40) Hemoglobin 13.6 g/dL (12.0-15.5) Hematocrit 41.4 % (36.0-47.0) Mean Corpuscular Volume 97 fL (79-100) Mean Corpuscular Hemoglobin 32 pg (25-35) Mean Corpuscular Hemoglobin Concent 33 g/dL (31-37) Red Cell Distribution Width 15.2 % (11.5-14.5) Platelet Count 287 x10^3/uL (140-400) Neutrophils (%) (Auto) 90 % (31-73) Lymphocytes (%) (Auto) 7 % (24-48) Monocytes (%) (Auto) 3 % (0-9) Eosinophils (%) (Auto) 0 % (0-3) Basophils (%) (Auto) 0 % (0-3) Neutrophils # (Auto) 12.7 x10^3uL (1.8-7.7) Lymphocytes # (Auto) 1.0 x10^3/uL (1.0-4.8) Monocytes # (Auto) 0.5 x10^3/uL (0.0-1.1) Eosinophils # (Auto) 0.0 x10^3/uL (0.0-0.7) Basophils # (Auto) 0.0 x10^3/uL (0.0-0.2) Laboratory Tests Test 10/08/18 03:10 10/08/18 09:00 Sodium Level 139 mmol/L (136-145) Potassium Level 5.1 mmol/L (3.5-5.1) Chloride Level 103 mmol/L (98-107) Carbon Dioxide Level 24 mmol/L (21-32) Anion Gap 12 (6-14) Blood Urea Nitrogen 36 mg/dL (7-20) Creatinine 0.6 mg/dL (0.6-1.0) Estimated GFR (Cockcroft-Gault) 95.0 Glucose Level 122 mg/dL (70-99) Calcium Level 8.8 mg/dL (8.5-10.1) White Blood Count 14.2 x10^3/uL (4.0-11.0) Red Blood Count 4.26 x10^6/uL (3.50-5.40) Hemoglobin 13.6 g/dL (12.0-15.5) Hematocrit 41.4 % (36.0-47.0) Mean Corpuscular Volume 97 fL (79-100) Mean Corpuscular Hemoglobin 32 pg (25-35) Mean Corpuscular Hemoglobin Concent 33 g/dL (31-37) Red Cell Distribution Width 15.2 % (11.5-14.5) Platelet Count 287 x10^3/uL (140-400) Neutrophils (%) (Auto) 90 % (31-73) Lymphocytes (%) (Auto) 7 % (24-48) Monocytes (%) (Auto) 3 % (0-9) Eosinophils (%) (Auto) 0 % (0-3) Basophils (%) (Auto) 0 % (0-3) Neutrophils # (Auto) 12.7 x10^3uL (1.8-7.7) Lymphocytes # (Auto) 1.0 x10^3/uL (1.0-4.8) Monocytes # (Auto) 0.5 x10^3/uL (0.0-1.1) Eosinophils # (Auto) 0.0 x10^3/uL (0.0-0.7) Basophils # (Auto) 0.0 x10^3/uL (0.0-0.2) Microbiology 10/05/18 Gram Stain - Final, Complete 10/05/18 Urine Culture - Final, Complete 10/05/18 Urine Culture Result 1 (HUE) - Final, Complete 10/05/18 Antimicrobic Susceptibility - Final, Complete Medications Current Medications Methylprednisolone Sodium Succinate (SOLU-Medrol 40MG VIAL) 40 mg Q8HRS IV Last administered on 10/07/18at 05:57; Start 10/05/18 at 14:00; Stop 10/07/18 at 10: 11; Status DC Albuterol/ Ipratropium (Duoneb) 3 ml RTQID NEB ; Start 10/05/18 at 12:00; Stop at 10:11; Status DC Amlodipine Besylate (Norvasc) 5 mg DAILY PO Last administered on 10/08/18at 08:07 ; Start 10/05/18 at 13:00 Acetaminophen/ Hydrocodone Bitart (Lortab 7.5/325) 1 tab PRN Q4HRS PRN PO PAIN Last administered on 10/08/18at 10:53; Start 10/05/18 at 12:00 Losartan Potassium (Cozaar) 50 mg DAILY PO Last administered on 10/08/18 08:06 ; Start 10/05/18 at 13:00 Famotidine (Pepcid) 40 mg HS PO Last administered on 10/07/18 21:06; Start 10/05 at 21:00 Ropinirole HCl (Requip) 1 mg DAILYWSUP PO Last administered on 10/07/18 17:46; Start 10/05/18 at 17:00 Ropinirole HCl (Requip) 2 mg HS PO Last administered on 10/07/18 21:05; Start 10/05/18 at 21:00 Pantoprazole Sodium (Protonix) 40 mg DAILYAC PO Last administered on 10/08/18 08:07; Start 10/06/18 at 07:30 Acetaminophen (Tylenol) 650 mg PRN Q6HRS PRN PO MILD PAIN / TEMP; Start at 12:00 Magnesium Hydroxide (Milk Of Magnesia) 2,400 mg PRN DAILY PRN PO CONSTIPATION; Start 10/05/18 at 12:00 Levofloxacin (Levaquin) 500 mg Q24H PO Last administered on 10/05/18 12:58; Start 10/05/18 at 13:00; Stop 10/05/18 at 16:28; Status DC Ceftriaxone Sodium (Rocephin) 1 gm Q24H IVP Last administered on 10/05/18 17:07 ; Start 10/05/18 at 17:00; Stop 10/06/18 at 11:56; Status DC Azithromycin (Zithromax) 250 mg DAILY PO Last administered on 10/06/18 08:48; Start 10/05/18 at 17:00; Stop 10/06/18 at 11:56; Status DC Ondansetron HCl (Zofran Odt) 4 mg PRN Q6HRS PRN PO NAUSEA/VOMITING Last administered on 10/05/18 21:21; Start 10/05/18 at 16:30 Linezolid (Zyvox) 600 mg BID PO Last administered on 10/08/18 09:36; Start 10/05 at 18:00 Zolpidem Tartrate (Ambien) 5 mg PRN QHS PRN PO INSOMNIA Last administered on 21:06; Start 10/05/18 at 18:30 Cefepime HCl (Maxipime) 1 gm Q12HR IVP Last administered on 10/08/18 08:05; Start 10/06/18 at 12:00 Methylprednisolone Sodium Succinate (SOLU-Medrol 40MG VIAL) 40 mg Q12HR IV Last administered on 10/08/18 08:05; Start 10/07/18 at 21:00 Polyethylene Glycol (miraLAX PACKET) 17 gm DAILY PO ; Start 10/07/18 at 11:00; Stop 10/07/18 at 21:36; Status DC Guaifenesin (Mucinex) 600 mg BID PO Last administered on 10/08/18 08:07; Start 10/07/18 at 12:30 Ipratropium [place] (Atrovent) 0.5 mg RTQID NEB Last administered on 10/08/18 11:18; Start 10/07/18 at 12:00 Polyethylene Glycol (miraLAX PACKET) 17 gm PRN DAILY PRN PO CONSTIPATION; Start 10/07/18 at 21:45 Active Scripts Active Reported Hydrocodone-Apap 7.5-325 (Hydrocodone Bit/Acetaminophen) 1 Tab Tablet 1 Tab PO PRN Q4HRS PRN Ropinirole Hcl 2 Mg Tablet 2 Mg PO HS Amlodipine Besylate 5 Mg Tablet 5 Mg PO DAILY Ropinirole Hcl 1 Mg Tablet 1 Mg PO DAILYWSUP Duoneb 0.5-3(2.5) Mg/3 Ml (Albuterol/Ipratropium) 3 Ml Ampul.neb 1 INH PRN Q4- 6HRS PRN Proair Respiclick (Albuterol Sulfate) 90 Mcg Aer.pow.ba 1 Puff INH PRN Q2-4HRS PRN Losartan Potassium 50 Mg Tablet 50 Mg PO DAILY Methotrexate (Methotrexate Sodium) 2.5 Mg Tablet 2.5 Mg PO DAILY Prilosec Otc (Omeprazole Magnesium) 20 Mg Tablet. 1 Tab PO DAILY Famotidine 40 Mg Tablet 40 Mg PO HS Vitals/I & O Vital Sign - Last 24 Hours 10/07/18 10/07/18 10/07/18 10/07/18 14:58 15:01 16:01 19:00 Temp 97.7 98.0 97.7 98.0 Pulse 89 90 Resp 18 20 18 B/P (MAP) 96/57 (70) 140/69 (92) Pulse Ox 93 91 91 O2 Delivery Nasal Cannula Nasal Cannula Nasal Cannula O2 Flow Rate 2.0 2.0 2.0 2.0 10/07/18 10/07/18 10/07/18 10/08/18 19:45 22:18 23:00 04:54 Temp 98.3 98.3 Pulse 75 Resp 16 17 B/P (MAP) 143/74 (97) Pulse Ox 93 90 90 O2 Delivery Room Air Room Air Nasal Cannula Room Air O2 Flow Rate 2.0 10/08/18 10/08/18 10/08/18 10/08/18 06:01 07:00 07:22 08:00 Temp 98.0 98.0 Pulse 71 Resp 17 18 B/P (MAP) 128/58 (81) Pulse Ox 90 92 99 O2 Delivery Room Air Nasal Cannula Room Air Room Air O2 Flow Rate 2.0 2.0 10/08/18 10/08/18 10/08/18 10/08/18 08:06 08:07 10:53 11:20 Pulse 75 75 Resp 14 B/P (MAP) 143/74 143/74 O2 Delivery Room Air Room Air Intake and Output 10/07/18 10/07/18 10/08/18 14:59 22:59 06:59 Intake Total 470 ml 200 ml 700 ml Output Total 70 ml Balance 470 ml 200 ml 630 ml HIPOLITO SCHAFER MD Oct 08, 2018 12:51
[2018-10-08 15:00] VITALS: BP 132/65
[2018-10-08] MEDS: rOPINIRole 1 MG TABLET. PO SCH ×2 (16:59→22:01)
[2018-10-08 19:00] VITALS: BP 136/69
[2018-10-08] MEDS: FAMOTIDINE 20 MG TABLET. PO SCH (22:01)
[2018-10-08] MEDS: ZOLPIDEM 5 MG TABLET. PO PRN (22:01)
[2018-10-08 22:49] VITALS: BP 140/67
[2018-10-09 05:35] LABS: BASO % 0 % (0-3); EOS % 0 % (0-3); HEMOGLOBIN 13.5 g/dL (12.0-15.5); LYMPH # 1.9 x10^3/uL (1.0-4.8); LYMPH % 19 % (24-48); MEAN CORPUSCULAR HEMOGLOBIN 31 pg (25-35); MEAN CORPUSCULAR HGB CONC 32 g/dL (31-37); MEAN CORPUSCULAR VOLUME 97 fL (79-100); MONO # 0.9 x10^3/uL (0.0-1.1); MONO % 9 % (0-9); NEUT # 7.4 x10^3uL (1.8-7.7); NEUT % 72 % (31-73); PLATELET COUNT 265 x10^3/uL (140-400); RED BLOOD COUNT 4.34 x10^6/uL (3.50-5.40); RED CELL DISTRIBUTION WIDTH 15.6 % (11.5-14.5); WHITE BLOOD COUNT 10.2 x10^3/uL (4.0-11.0)
[2018-10-09 06:04] LABS: CALCIUM 8.6 mg/dL (8.5-10.1); CREATININE 0.7 mg/dL (0.6-1.0); GFR 79.5; POTASSIUM 4.8 mmol/L (3.5-5.1)
[2018-10-09 07:00] VITALS: BP 148/85
[2018-10-09] MEDS: PANTOPRAZOLE 40 MG TABLET.DR. PO SCH ×2 (07:30→09:13)
--- NOTE | 2018-10-09 08:29 | PDOC ---
Infectious Disease Note Subjective Subjective Feeling better but can't clear secretions yet No F/C/S/N/V/D/RASH/SOA better Vital Sign Vital Signs Vital Signs Date Time Temp Pulse Resp B/P (MAP) Pulse Ox O2 Delivery O2 Flow Rate FiO2 10/08/18 23:02 18 93 Room Air 2.0 10/08/18 22:49 97.5 89 140/67 (91) 97.5 Physical Exam PHYSICAL EXAM CONSTITUTIONAL: She is onside of bed and looks well HEENT: Oral cavity, pharynx has some questionable dentition. Pupils are equal and reactive. NECK: Supple. She is kyphotic. LUNGS: Decreased in the bases. No gross wheeze. HEART: S1, S2. ABDOMEN: Soft, nontender. No distention, no guarding. EXTREMITIES: No clubbing, cyanosis or gross edema. SKIN: Warm to touch, without signs of rash. NEUROLOGIC: She is nonfocal, ambulating about the room. PSYCHIATRIC: Affect is pleasant Labs Lab Laboratory Tests Test 10/08/18 09:00 10/09/18 05:00 White Blood Count 14.2 x10^3/uL (4.0-11.0) 10.2 x10^3/uL (4.0-11.0) Red Blood Count 4.26 x10^6/uL (3.50-5.40) 4.34 x10^6/uL (3.50-5.40) Hemoglobin 13.6 g/dL (12.0-15.5) 13.5 g/dL (12.0-15.5) Hematocrit 41.4 % (36.0-47.0) 42.0 % (36.0-47.0) Mean Corpuscular Volume 97 fL (79-100) 97 fL (79-100) Mean Corpuscular Hemoglobin 32 pg (25-35) 31 pg (25-35) Mean Corpuscular Hemoglobin Concent 33 g/dL (31-37) 32 g/dL (31-37) Red Cell Distribution Width 15.2 % (11.5-14.5) 15.6 % (11.5-14.5) Platelet Count 287 x10^3/uL (140-400) 265 x10^3/uL (140-400) Neutrophils (%) (Auto) 90 % (31-73) 72 % (31-73) Lymphocytes (%) (Auto) 7 % (24-48) 19 % (24-48) Monocytes (%) (Auto) 3 % (0-9) 9 % (0-9) Eosinophils (%) (Auto) 0 % (0-3) 0 % (0-3) Basophils (%) (Auto) 0 % (0-3) 0 % (0-3) Neutrophils # (Auto) 12.7 x10^3uL (1.8-7.7) 7.4 x10^3uL (1.8-7.7) Lymphocytes # (Auto) 1.0 x10^3/uL (1.0-4.8) 1.9 x10^3/uL (1.0-4.8) Monocytes # (Auto) 0.5 x10^3/uL (0.0-1.1) 0.9 x10^3/uL (0.0-1.1) Eosinophils # (Auto) 0.0 x10^3/uL (0.0-0.7) 0.0 x10^3/uL (0.0-0.7) Basophils # (Auto) 0.0 x10^3/uL (0.0-0.2) 0.0 x10^3/uL (0.0-0.2) Sodium Level 142 mmol/L (136-145) Potassium Level 4.8 mmol/L (3.5-5.1) Chloride Level 106 mmol/L (98-107) Carbon Dioxide Level 29 mmol/L (21-32) Anion Gap 7 (6-14) Blood Urea Nitrogen 30 mg/dL (7-20) Creatinine 0.7 mg/dL (0.6-1.0) Estimated GFR (Cockcroft-Gault) 79.5 Glucose Level 76 mg/dL (70-99) Calcium Level 8.6 mg/dL (8.5-10.1) Micro Urine URINE CULTURE RES 1 Final Escherichia coli 50,000-100,000 colony forming units per mL Cefazolin <=4 ug/mL Cefazolin with an HUE <=16 predicts susceptibility to the oral agents cefaclor, cefdinir, cefpodoxime, cefprozil, cefuroxime, cephalexin, and loracarbef when used for therapy of uncomplicated urinary tract infections due to E. coli, Klebsiella pneumoniae, and Proteus mirabilis. ANTIMICROBIAL SUSCEPTIBILITY Final Comment S = Susceptible; I = Intermediate; R = Resistant P = Positive; N = Negative MICS are expressed in micrograms per mL Antibiotic RSLT#1 RSLT#2 RSLT#3 RSLT#4 Amoxicillin/Clavulanic Acid S<=2 Ampicillin S =4 Cefepime S<=0.12 Ceftriaxone S<=0.25 Cefuroxime I =16 Ciprofloxacin S<=0.25 Ertapenem S<=0.12 Gentamicin S<=1 Imipenem S<=0.25 Levofloxacin S<=0.12 Meropenem S<=0.25 Nitrofurantoin S<=16 Piperacillin/Tazobactam S<=4 Tetracycline S<=1 Tobramycin S<=1 Trimethoprim/Sulfa S<=20 Microbiology 10/05/18 Gram Stain - Final, Complete Objective Assessment Pneumonia - on Azithromycin prior to admit better PCN allergy - tolerating Rocephin 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
[2018-10-09] MEDS ORDERED: predniSONE 20 MG TABLET PO SCH (09:00)
--- NOTE | 2018-10-09 09:08 | PDOC ---
PULMONARY PROGRESS NOTES Subjective no jaylan loose stools better today Vitals Vital Signs Date Time Temp Pulse Resp B/P (MAP) Pulse Ox O2 Delivery O2 Flow Rate FiO2 10/09/18 07:00 98.1 72 16 148/85 (106) 90 Room Air 98.1 10/08/18 23:02 2.0 ROS: No Chest Pain, No Increase Cough General: Alert, No acute distress Lungs: Other (decrease bs) Cardiovascular: S1 Abdomen: Soft Neuro Exam: Alert Extremities: No Edema Skin: Warm Labs Laboratory Tests Test 10/08/18 03:10 10/08/18 03:45 10/08/18 09:00 10/09/18 05:00 Sodium Level 139 mmol/L (136-145) 142 mmol/L (136-145) Potassium Level 5.1 mmol/L (3.5-5.1) 4.8 mmol/L (3.5-5.1) Chloride Level 103 mmol/L (98-107) 106 mmol/L (98-107) Carbon Dioxide Level 24 mmol/L (21-32) 29 mmol/L (21-32) Anion Gap 12 (6-14) 7 (6-14) Blood Urea Nitrogen 36 mg/dL (7-20) 30 mg/dL (7-20) Creatinine 0.6 mg/dL (0.6-1.0) 0.7 mg/dL (0.6-1.0) Estimated GFR (Cockcroft-Gault) 95.0 79.5 Glucose Level 122 mg/dL (70-99) 76 mg/dL (70-99) Calcium Level 8.8 mg/dL (8.5-10.1) 8.6 mg/dL (8.5-10.1) Clostridium difficile Toxin B Gene Negative (Negative) White Blood Count 14.2 x10^3/uL (4.0-11.0) 10.2 x10^3/uL (4.0-11.0) Red Blood Count 4.26 x10^6/uL (3.50-5.40) 4.34 x10^6/uL (3.50-5.40) Hemoglobin 13.6 g/dL (12.0-15.5) 13.5 g/dL (12.0-15.5) Hematocrit 41.4 % (36.0-47.0) 42.0 % (36.0-47.0) Mean Corpuscular Volume 97 fL (79-100) 97 fL (79-100) Mean Corpuscular Hemoglobin 32 pg (25-35) 31 pg (25-35) Mean Corpuscular Hemoglobin Concent 33 g/dL (31-37) 32 g/dL (31-37) Red Cell Distribution Width 15.2 % (11.5-14.5) 15.6 % (11.5-14.5) Platelet Count 287 x10^3/uL (140-400) 265 x10^3/uL (140-400) Neutrophils (%) (Auto) 90 % (31-73) 72 % (31-73) Lymphocytes (%) (Auto) 7 % (24-48) 19 % (24-48) Monocytes (%) (Auto) 3 % (0-9) 9 % (0-9) Eosinophils (%) (Auto) 0 % (0-3) 0 % (0-3) Basophils (%) (Auto) 0 % (0-3) 0 % (0-3) Neutrophils # (Auto) 12.7 x10^3uL (1.8-7.7) 7.4 x10^3uL (1.8-7.7) Lymphocytes # (Auto) 1.0 x10^3/uL (1.0-4.8) 1.9 x10^3/uL (1.0-4.8) Monocytes # (Auto) 0.5 x10^3/uL (0.0-1.1) 0.9 x10^3/uL (0.0-1.1) Eosinophils # (Auto) 0.0 x10^3/uL (0.0-0.7) 0.0 x10^3/uL (0.0-0.7) Basophils # (Auto) 0.0 x10^3/uL (0.0-0.2) 0.0 x10^3/uL (0.0-0.2) Laboratory Tests Test 10/09/18 05:00 White Blood Count 10.2 x10^3/uL (4.0-11.0) Red Blood Count 4.34 x10^6/uL (3.50-5.40) Hemoglobin 13.5 g/dL (12.0-15.5) Hematocrit 42.0 % (36.0-47.0) Mean Corpuscular Volume 97 fL (79-100) Mean Corpuscular Hemoglobin 31 pg (25-35) Mean Corpuscular Hemoglobin Concent 32 g/dL (31-37) Red Cell Distribution Width 15.6 % (11.5-14.5) Platelet Count 265 x10^3/uL (140-400) Neutrophils (%) (Auto) 72 % (31-73) Lymphocytes (%) (Auto) 19 % (24-48) Monocytes (%) (Auto) 9 % (0-9) Eosinophils (%) (Auto) 0 % (0-3) Basophils (%) (Auto) 0 % (0-3) Neutrophils # (Auto) 7.4 x10^3uL (1.8-7.7) Lymphocytes # (Auto) 1.9 x10^3/uL (1.0-4.8) Monocytes # (Auto) 0.9 x10^3/uL (0.0-1.1) Eosinophils # (Auto) 0.0 x10^3/uL (0.0-0.7) Basophils # (Auto) 0.0 x10^3/uL (0.0-0.2) Sodium Level 142 mmol/L (136-145) Potassium Level 4.8 mmol/L (3.5-5.1) Chloride Level 106 mmol/L (98-107) Carbon Dioxide Level 29 mmol/L (21-32) Anion Gap 7 (6-14) Blood Urea Nitrogen 30 mg/dL (7-20) Creatinine 0.7 mg/dL (0.6-1.0) Estimated GFR (Cockcroft-Gault) 79.5 Glucose Level 76 mg/dL (70-99) Calcium Level 8.6 mg/dL (8.5-10.1) Medications Active Scripts Medications Dose Route/Sig Max Daily Dose Days Date Category Hydrocodone-Apap 7.5-325 (Hydrocodone Bit/Acetaminophen) 1 Tab Tablet 1 Tab PO PRN Q4HRS PRN 10/05/18 Reported Ropinirole Hcl 2 Mg Tablet 2 Mg PO HS 10/05/18 Reported Amlodipine Besylate 5 Mg Tablet 5 Mg PO DAILY 10/05/18 Reported Ropinirole Hcl 1 Mg Tablet 1 Mg PO DAILYWSUP 10/05/18 Reported Duoneb 0.5-3(2.5) Mg/3 Ml (Albuterol/Ipratropium) 3 Ml Ampul.neb 1 INH PRN Q4-6HRS PRN 10/05/18 Reported Proair Respiclick (Albuterol Sulfate) 90 Mcg Aer.pow.ba 1 Puff INH PRN Q2-4HRS PRN 10/05/18 Reported Losartan Potassium 50 Mg Tablet 50 Mg PO DAILY 10/05/18 Reported Methotrexate (Methotrexate Sodium) 2.5 Mg Tablet 2.5 Mg PO DAILY 05/16/14 Reported Prilosec Otc (Omeprazole Magnesium) 20 Mg Tablet.dr 1 Tab PO DAILY 05/16/14 Reported Famotidine 40 Mg Tablet 40 Mg PO HS 05/16/14 Reported Impression . 1. Abnormal CT revealing bilateral infiltrates and right middle lobe consolidation. 2. Acute exacerbation of chronic obstructive pulmonary disease. 3. Pneumonia, suspect gram-negative, possibly gram-positive. 4. 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 on MTX/ Maggi 5. Loose stools, antibiotic related 6. E-Coli UTI/ Wallace sensitive Plan . 1. antibiotics per ID/ consider change to PO. d/w DR ROSSI 2. Follow clinical course 3. Repeat CT of the chest in 2 months. appointment given with DR Yun in November with ct chest prior 4. Pt is very frail. Would hold off on Bronch for now unless does not respond to BS Abx 5. mucinex 6. changed nebs to atrovent only d/w RN / DR Rossi likely dc home today VASYL LAM MD Oct 09, 2018 09:08
[2018-10-09] MEDS: CEFEPIME HCL IV Push 1 GM VIAL. IVP SCH (09:11)
[2018-10-09] MEDS: LINEZOLID 600 MG TABLET PO SCH (09:12)
[2018-10-09] MEDS: LOSARTAN POTASSIUM 50 MG TABLET. PO SCH (09:12)
[2018-10-09] MEDS: HYDROcodone/APAP 7.5/325MG 1 TAB TABLET PO PRN (09:12)
[2018-10-09] MEDS: amLODIPine BESYLATE 5 MG TABLET PO SCH (09:13)
--- NOTE | 2018-10-09 10:16 | PDOC ---
PROGRESS NOTES Subjective Subjective feels better. occasional dry cough. lab reviewed, Objective Objective Vital Signs Date Time Temp Pulse Resp B/P (MAP) Pulse Ox O2 Delivery O2 Flow Rate FiO2 10/09/18 09:13 72 148/85 10/09/18 09:12 14 Room Air 10/09/18 07:00 98.1 90 98.1 10/08/18 23:02 2.0 Intake and Output 10/09/18 07:00 Intake Total 780 ml Balance 780 ml Intake Oral 780 ml # Voids 6 Physical Exam Abdomen: Soft Heart: Regular rate, Normal S1, Normal S2 Extremities: No edema General: Alert HEENT: Atraumatic Lungs: Clear to auscultation, Other (decreased breath sounds bilaterally) Neuro: Normal speech Psych/Mental Status: Mental status NL Skin: No rashes Assessment Assessment 1. Right middle lobe pneumonia. 2. Chronic obstructive pulmonary disease exacerbation secondary to pneumonia. 3. Hypertension. 4. Gastroesophageal reflux disease. 5. Psoriatic arthritis. 6. 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 e. coli uti leukocytosis due to steroids diarrhea. c. diff neg Plan Plan of Care dismiss today cefdinir for [address] chest [address] hilton in 11/22 prednisone taper Comment Review of Relevant I have reviewed the following items anette (where applicable) has been applied. Labs Laboratory Tests Test 10/08/18 03:10 10/08/18 03:45 10/08/18 09:00 10/09/18 05:00 Sodium Level 139 mmol/L (136-145) 142 mmol/L (136-145) Potassium Level 5.1 mmol/L (3.5-5.1) 4.8 mmol/L (3.5-5.1) Chloride Level 103 mmol/L (98-107) 106 mmol/L (98-107) Carbon Dioxide Level 24 mmol/L (21-32) 29 mmol/L (21-32) Anion Gap 12 (6-14) 7 (6-14) Blood Urea Nitrogen 36 mg/dL (7-20) 30 mg/dL (7-20) Creatinine 0.6 mg/dL (0.6-1.0) 0.7 mg/dL (0.6-1.0) Estimated GFR (Cockcroft-Gault) 95.0 79.5 Glucose Level 122 mg/dL (70-99) 76 mg/dL (70-99) Calcium Level 8.8 mg/dL (8.5-10.1) 8.6 mg/dL (8.5-10.1) Clostridium difficile Toxin B Gene Negative (Negative) White Blood Count 14.2 x10^3/uL (4.0-11.0) 10.2 x10^3/uL (4.0-11.0) Red Blood Count 4.26 x10^6/uL (3.50-5.40) 4.34 x10^6/uL (3.50-5.40) Hemoglobin 13.6 g/dL (12.0-15.5) 13.5 g/dL (12.0-15.5) Hematocrit 41.4 % (36.0-47.0) 42.0 % (36.0-47.0) Mean Corpuscular Volume 97 fL (79-100) 97 fL (79-100) Mean Corpuscular Hemoglobin 32 pg (25-35) 31 pg (25-35) Mean Corpuscular Hemoglobin Concent 33 g/dL (31-37) 32 g/dL (31-37) Red Cell Distribution Width 15.2 % (11.5-14.5) 15.6 % (11.5-14.5) Platelet Count 287 x10^3/uL (140-400) 265 x10^3/uL (140-400) Neutrophils (%) (Auto) 90 % (31-73) 72 % (31-73) Lymphocytes (%) (Auto) 7 % (24-48) 19 % (24-48) Monocytes (%) (Auto) 3 % (0-9) 9 % (0-9) Eosinophils (%) (Auto) 0 % (0-3) 0 % (0-3) Basophils (%) (Auto) 0 % (0-3) 0 % (0-3) Neutrophils # (Auto) 12.7 x10^3uL (1.8-7.7) 7.4 x10^3uL (1.8-7.7) Lymphocytes # (Auto) 1.0 x10^3/uL (1.0-4.8) 1.9 x10^3/uL (1.0-4.8) Monocytes # (Auto) 0.5 x10^3/uL (0.0-1.1) 0.9 x10^3/uL (0.0-1.1) Eosinophils # (Auto) 0.0 x10^3/uL (0.0-0.7) 0.0 x10^3/uL (0.0-0.7) Basophils # (Auto) 0.0 x10^3/uL (0.0-0.2) 0.0 x10^3/uL (0.0-0.2) Laboratory Tests Test 10/09/18 05:00 White Blood Count 10.2 x10^3/uL (4.0-11.0) Red Blood Count 4.34 x10^6/uL (3.50-5.40) Hemoglobin 13.5 g/dL (12.0-15.5) Hematocrit 42.0 % (36.0-47.0) Mean Corpuscular Volume 97 fL (79-100) Mean Corpuscular Hemoglobin 31 pg (25-35) Mean Corpuscular Hemoglobin Concent 32 g/dL (31-37) Red Cell Distribution Width 15.6 % (11.5-14.5) Platelet Count 265 x10^3/uL (140-400) Neutrophils (%) (Auto) 72 % (31-73) Lymphocytes (%) (Auto) 19 % (24-48) Monocytes (%) (Auto) 9 % (0-9) Eosinophils (%) (Auto) 0 % (0-3) Basophils (%) (Auto) 0 % (0-3) Neutrophils # (Auto) 7.4 x10^3uL (1.8-7.7) Lymphocytes # (Auto) 1.9 x10^3/uL (1.0-4.8) Monocytes # (Auto) 0.9 x10^3/uL (0.0-1.1) Eosinophils # (Auto) 0.0 x10^3/uL (0.0-0.7) Basophils # (Auto) 0.0 x10^3/uL (0.0-0.2) Sodium Level 142 mmol/L (136-145) Potassium Level 4.8 mmol/L (3.5-5.1) Chloride Level 106 mmol/L (98-107) Carbon Dioxide Level 29 mmol/L (21-32) Anion Gap 7 (6-14) Blood Urea Nitrogen 30 mg/dL (7-20) Creatinine 0.7 mg/dL (0.6-1.0) Estimated GFR (Cockcroft-Gault) 79.5 Glucose Level 76 mg/dL (70-99) Calcium Level 8.6 mg/dL (8.5-10.1) Microbiology 10/05/18 Gram Stain - Final, Complete 10/05/18 Urine Culture - Final, Complete 10/05/18 Urine Culture Result 1 (HUE) - Final, Complete 10/05/18 Antimicrobic Susceptibility - Final, Complete Medications Current Medications Methylprednisolone Sodium Succinate (SOLU-Medrol 40MG VIAL) 40 mg Q8HRS IV Last administered on 10/07/18 05:57; Start 10/05/18 at 14:00; Stop 10/07/18 at 10: 11; Status DC Albuterol/ Ipratropium (Duoneb) 3 ml RTQID NEB ; Start 10/05/18 at 12:00; Stop at 10:11; Status DC Amlodipine Besylate (Norvasc) 5 mg DAILY PO Last administered on 10/09/18 09:13 ; Start 10/05/18 at 13:00 Acetaminophen/ Hydrocodone Bitart (Lortab 7.5/325) 1 tab PRN Q4HRS PRN PO PAIN Last administered on 10/09/18 09:12; Start 10/05/18 at 12:00 Losartan Potassium (Cozaar) 50 mg DAILY PO Last administered on 10/09/18 09:12 ; Start 10/05/18 at 13:00 Famotidine (Pepcid) 40 mg HS PO Last administered on 10/08/18 22:01; Start 10/05 at 21:00 Ropinirole HCl (Requip) 1 mg DAILYWSUP PO Last administered on 10/08/18 16:59; Start 10/05/18 at 17:00 Ropinirole HCl (Requip) 2 mg HS PO Last administered on 10/08/18 22:01; Start 10/05/18 at 21:00 Pantoprazole Sodium (Protonix) 40 mg DAILYAC PO Last administered on 4/5/19at 09:13; Start 10/06/18 at 07:30 Acetaminophen (Tylenol) 650 mg PRN Q6HRS PRN PO MILD PAIN / TEMP; Start at 12:00 Magnesium Hydroxide (Milk Of Magnesia) 2,400 mg PRN DAILY PRN PO CONSTIPATION; Start 10/05/18 at 12:00 Levofloxacin (Levaquin) 500 mg Q24H PO Last administered on 10/05/18at 12:58; Start 10/05/18 at 13:00; Stop 10/05/18 at 16:28; Status DC Ceftriaxone Sodium (Rocephin) 1 gm Q24H IVP Last administered on 10/05/18 17:07 ; Start 10/05/18 at 17:00; Stop 10/06/18 at 11:56; Status DC Azithromycin (Zithromax) 250 mg DAILY PO Last administered on 10/06/18 08:48; Start 10/05/18 at 17:00; Stop 10/06/18 at 11:56; Status DC Ondansetron HCl (Zofran Odt) 4 mg PRN Q6HRS PRN PO NAUSEA/VOMITING Last administered on 10/05/18at 21:21; Start 10/05/18 at 16:30 Linezolid (Zyvox) 600 mg BID PO Last administered on 10/09/18 09:12; Start 10/05 at 18:00; Stop 10/09/18 at 09:23; Status DC Zolpidem Tartrate (Ambien) 5 mg PRN QHS PRN PO INSOMNIA Last administered on 22:01; Start 10/05/18 at 18:30 Cefepime HCl (Maxipime) 1 gm Q12HR IVP Last administered on 10/09/18 09:11; Start 10/06/18 at 12:00; Stop 10/09/18 at 09:23; Status DC Methylprednisolone Sodium Succinate (SOLU-Medrol 40MG VIAL) 40 mg Q12HR IV Last administered on 10/08/18 08:05; Start 10/07/18 at 21:00; Stop 10/08/18 at 12: 52; Status DC Polyethylene Glycol (miraLAX PACKET) 17 gm DAILY PO ; Start 10/07/18 at 11:00; Stop 10/07/18 at 21:36; Status DC Guaifenesin (Mucinex) 600 mg BID PO Last administered on 10/09/18at 09:12; Start 10/07/18 at 12:30 Ipratropium [place] (Atrovent) 0.5 mg RTQID NEB Last administered on 10/08/18at 11:18; Start 10/07/18 at 12:00 Polyethylene Glycol (miraLAX PACKET) 17 gm PRN DAILY PRN PO CONSTIPATION; Start 10/07/18 at 21:45 Prednisone (Prednisone) 40 mg DAILY PO ; Start 10/09/18 at 09:00 Cefdinir (Omnicef) 300 mg BID PO ; Start 10/09/18 at 21:00 Active Scripts Active Reported Hydrocodone-Apap 7.5-325 (Hydrocodone Bit/Acetaminophen) 1 Tab Tablet 1 Tab PO PRN Q4HRS PRN Ropinirole Hcl 2 Mg Tablet 2 Mg PO HS Amlodipine Besylate 5 Mg Tablet 5 Mg PO DAILY Ropinirole Hcl 1 Mg Tablet 1 Mg PO DAILYWSUP Duoneb 0.5-3(2.5) Mg/3 Ml (Albuterol/Ipratropium) 3 Ml Ampul.neb 1 INH PRN Q4- 6HRS PRN Proair Respiclick (Albuterol Sulfate) 90 Mcg Aer.pow.ba 1 Puff INH PRN Q2-4HRS PRN Losartan Potassium 50 Mg Tablet 50 Mg PO DAILY Methotrexate (Methotrexate Sodium) 2.5 Mg Tablet 2.5 Mg PO DAILY Prilosec Otc (Omeprazole Magnesium) 20 Mg Tablet. 1 Tab PO DAILY Famotidine 40 Mg Tablet 40 Mg PO HS Vitals/I & O Vital Sign - Last 24 Hours 10/08/18 10/08/18 10/08/18 10/08/18 10:53 11:00 11:20 15:00 Temp 98.1 98.0 98.1 98.0 Pulse 92 78 Resp 14 18 18 B/P (MAP) 130/60 (83) 132/65 (87) Pulse Ox 90 91 O2 Delivery Room Air Nasal Cannula Room Air Room Air O2 Flow Rate 2.0 10/08/18 10/08/18 10/08/18 10/08/18 17:05 19:00 20:00 22:02 Temp 98.2 98.2 Pulse 80 Resp 14 18 18 B/P (MAP) 136/69 (91) Pulse Ox 90 91 91 O2 Delivery Room Air Room Air Room Air Room Air O2 Flow Rate 2.0 10/08/18 10/08/18 10/09/18 10/09/18 22:49 23:02 07:00 09:12 Temp 97.5 98.1 97.5 98.1 Pulse 89 72 Resp 18 18 16 14 B/P (MAP) 140/67 (91) 148/85 (106) Pulse Ox 93 93 90 O2 Delivery Room Air Room Air Room Air Room Air O2 Flow Rate 2.0 10/09/18 10/09/18 09:12 09:13 Pulse 72 72 B/P (MAP) 148/85 148/85 Intake and Output 10/08/18 10/08/18 10/09/18 15:00 23:00 07:00 Intake Total 360 ml 180 ml 240 ml Balance 360 ml 180 ml 240 ml HIPOLITO SCHAFER MD Oct 09, 2018 10:16
[2018-10-09] MEDS ORDERED: CEFD300C PO (10:19)
[2018-10-09] MEDS ORDERED: PRED20TA PO (10:19)
--- NOTE | 2018-10-09 10:20 | DISCH ---
DISCHARGE INSTRUCTIONS Condition on Discharge Condition on Discharge: Stable Activity After Discharge Activity Instructions for Disc: Resume previous activity Diet after Discharge Diet after Discharge: Regular Contacting the DR. after DC Call your doctor for: If your condition worsens Follow-Up Follow up with: dr. schafer next week Follow Up With: dr. hilton or dr. villarreal in 2 weeks HIPOLITO SCHAFER MD Oct 09, 2018 10:20
--- NOTE | 2018-10-09 10:25 | PDOC ---
Provider Note Provider Note discharge summary dictated # [id number] HIPOLITO SCHAFER MD Oct 09, 2018 10:25
[2018-10-09 11:00] VITALS: BP 121/71
--- NOTE | 2018-10-09 11:51 | NUR ---
Discharge Note: SILVIO GALLOWAY HANCOCK Discharge instructions and discharge home medications reviewed with Patient and a copy given. All questions have been answered and understanding verbalized. The following instructions and handouts were given: Pneumonia Discontinued lines and drains: Peripheral IV intact. Patient discharged to Home or Self Care withFamily Membervia Wheelchair escorted out with Britney PARNELL
[2018-10-09] MEDS ORDERED: CEFDINIR 300 MG CAPSULE PO SCH (21:00)
--- NOTE | 2018-10-09 22:55 | DS ---
DATE OF DISCHARGE: 10/09/2018 CONSULTANTS: Dr. Santos, Dr. Talbot and Dr. Yun. FINAL DIAGNOSES: 1. Right middle lobe pneumonia. 2. Chronic obstructive pulmonary disease exacerbation due to pneumonia. 3. Hypertension. 4. Gastroesophageal reflux disease. 5. 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 6. Psoriatic arthritis. HOSPITAL COURSE: The patient is an 83-year-old white female, with a history of COPD, admitted to the [facility] on 10/05/2018 with a 1-week history of increasing shortness of breath, cough productive of yellow sputum. She was seen by Dr. Talbot on , 10/01/2018 and then was started on Zithromax in the office for cough with yellow sputum. Then on 10/05/2018, the patient spoke with Dr. Yun and the patient was admitted to [facility] at my service due to suspected pneumonia and a COPD exacerbation. The chest x-ray did show a right middle lobe infiltrate. She also had a CAT scan of the chest done, which showed evidence of emphysema and also had new right middle lobe and lingular inflammation noted consistent with atelectasis and consolidation of the right middle lobe pneumonia. She had a large hiatal hernia. She was seen by Dr. Santos, Dr. Yun and Dr. Talbot of Pulmonary. She continued to improve. She was treated with IV antibiotics. She was transitioned to oral antibiotics. Urine culture did grow E. coli and she was placed on cefdinir 500 mg b.i.d. for 5 days. She was treated with IV Solu-Medrol and then switched to prednisone taper. She was much better and she has had an occasional cough and clear lungs. She will make an appointment to see Dr. Jesus in the office next week. She was told to make an appointment to see Dr. Talbot in the office in about 2 weeks and I will be ordering a CAT scan of the chest in about 2 months in November. I think she has an appointment with Dr. Yun in November and that would be fine. She will see me in the office next week. She will be dismissed to home on cefdinir 300 mg b.i.d. for 5 days, prednisone 30 mg for 2 days and then 20 mg every day for 2 days and then 0.5 mg every day for 2 days, so that would be 6 tablets and no refill and she will continue with her albuterol nebulizer treatments q.i.d. p.r.n., amlodipine 5 mg every day, famotidine 40 mg at bedtime, folic acid 1 mg every day. She will hold off on Humira and methotrexate until she completes her antibiotics, losartan 50 mg every day. Then, she will resume her methotrexate 7.5 mg every Friday, [place] 7.5 mg 1-2 every 4 hours p.r.n., Requip 1 mg at 5:00 p.m. and 2 mg at bedtime, Spiriva 1 puff every day, Prilosec exam-ona-vrzoksn 20 mg every day, Ventolin inhaler 1 puff every 4 hours p.r.n. and Humira every 2 weeks when she completes her antibiotics. HIPOLITO JESUS MD DR: [email or web address] JOB#: [id number] / [id number]
== END 2018-10-09 11:53 | disposition home or self-care (01) | DRG 871 ==
LOC: 5 NORTH 10:48
PROVIDERS: ADMIT Internal Medicine; ATTEND Internal Medicine
DX: A41.9 Sepsis, unspecified organism (principal); J18.9 Pneumonia, unspecified organism; J44.1 Chronic obstructive pulmonary disease with (acute) exacerbation; N39.0 Urinary tract infection, site not specified; J98.11 Atelectasis; J44.0 Chronic obstructive pulmonary disease with (acute) lower respiratory infection; I10 Essential (primary) hypertension; B96.20 Unspecified Escherichia coli [E. coli] as the cause of diseases classified elsewhere; D89.9 Disorder involving the immune mechanism, unspecified; F17.200 Nicotine dependence, unspecified, uncomplicated; G25.81 Restless legs syndrome; K21.9 Gastro-esophageal reflux disease without esophagitis; K44.9 Diaphragmatic hernia without obstruction or gangrene; L40.50 Arthropathic psoriasis, unspecified; M81.0 Age-related osteoporosis without current pathological fracture; N32.81 Overactive bladder; T38.0X5A Adverse effect of glucocorticoids and synthetic analogues, initial encounter; Z87.81 Personal history of (healed) traumatic fracture; Z88.0 Allergy status to penicillin; Z93.3 Colostomy status; L40.9 Psoriasis, unspecified; Z79.899 Other long term (current) drug therapy
CPT/HCPCS: 36415; 71046; 71250; 80048; 80053; 81001; 85007; 85025; 87070; 87086; 87186; 87205; 87493; 93005; 94640; 94760; J0692; J0696; J2920; J7644; Q0144; Q0162; 97110; 97116

== ENCOUNTER → 2018-11-13 | Outpatient (CLI) | payer BC ==
[~2018-11-13] MED LIST changes: +AMLO5TAB10 PO; +AZIT250T6 PO; +CEFD300C PO; +HYDR-2765 PO; +IPRA3AMP29 INH; +LOSA50TA15 PO; +PRED20TA PO; +PROAIR RESPICL90 MCG INH; +ROPI1TAB2 PO; +ROPI2TAB4 PO
--- NOTE | 2018-11-13 12:10 | RAD ---
CT of the chest without contrast, 11/13/2018: HISTORY: Pneumonia Noncontrast scans were obtained as requested and compared to a study from 10/05/2018. There are moderate emphysematous changes in the lungs. There are scattered parenchymal scars. A coarse calcification is present in the right lower lobe. There is a persistent soft tissue density in the medial aspect of the right middle lobe with extension to the hilum. On the axial images it currently measures 3.8 cm in greatest oblique dimension. It is of similar size when compared to the previous study. There is associated partial obscuration of the proximal right middle lobe bronchus. Adjacent tree-in-bud type opacities have improved slightly. Lingular tree-in-bud opacities have also partially cleared. A small amount of right-sided pleural fluid has developed. There is moderate calcific plaquing of the thoracic aorta without evidence of aneurysm. Moderate coronary artery calcifications are present. There are calcified mediastinal and right hilar lymph nodes due to old granulomatous disease. A large hiatal hernia is present. A trace amount of pericardial fluid is noted. Two midthoracic vertebral compression fractures are unchanged. There are moderate scattered degenerative changes in the spine. IMPRESSION: 1. Emphysema with parenchymal scarring. 2. Persistent soft tissue density in the medial aspect of the right middle raising possibility of neoplasm, with poor aeration of the proximal right middle lobe bronchus which may be due to narrowing or debris. Bronchoscopic evaluation is suggested. 3. Mild lingular and right middle lobe infiltrates have partially cleared since 10/05/2018. 4. New small right pleural effusion. 5. Large hiatal hernia. 6. Moderate coronary artery disease. PQRS Compliance Statement: One or more of the following individualized dose reduction techniques were utilized for this examination: 1. Automated exposure control 2. Adjustment of the mA and/or kV according to patient size 3. Use of iterative reconstruction technique Electronically signed by: Thanh Myers MD (11/13/2018 12:07 PM) [facility]
== END | disposition home or self-care (01) ==
LOC: CT 09:20
PROVIDERS: ATTEND Internal Medicine Critical Care Medicine
DX: J43.9 Emphysema, unspecified (principal); J98.4 Other disorders of lung; J90 Pleural effusion, not elsewhere classified; I25.10 Atherosclerotic heart disease of native coronary artery without angina pectoris; K44.9 Diaphragmatic hernia without obstruction or gangrene; R91.8 Other nonspecific abnormal finding of lung field; I70.0 Atherosclerosis of aorta; M48.54XA Collapsed vertebra, not elsewhere classified, thoracic region, initial encounter for fracture
CPT/HCPCS: 71250

== ENCOUNTER 2018-11-16 16:35 | Inpatient (IN) | payer BC ==
[~2018-11-16] VITALS: Ht 152.4 cm; Wt 49.9 kg
[~2018-11-16 16:35] MED LIST changes: -AZIT250T6 PO
[2018-11-16] MEDS ORDERED: IPRATRPIUM/ALBUTEROL 0.5/2.5MG 3 ML NEBU. NEB ONE (16:45)
[2018-11-16] MEDS ORDERED: methylPREDNISolone SOD SUCC PF 125 MG/2 ML VIAL. IV ONE (16:45)
[2018-11-16 17:05] LABS: BASO # 0.1 x10^3/uL (0.0-0.2); BASO % 1 % (0-3); EOS # 0.1 x10^3/uL (0.0-0.7); EOS % 1 % (0-3); HEMATOCRIT 41.2 % (36.0-47.0); HEMOGLOBIN 13.3 g/dL (12.0-15.5); LYMPH # 1.3 x10^3/uL (1.0-4.8); LYMPH % 17 % (24-48); MEAN CORPUSCULAR HEMOGLOBIN 31 pg (25-35); MEAN CORPUSCULAR HGB CONC 32 g/dL (31-37); MEAN CORPUSCULAR VOLUME 96 fL (79-100); MONO # 0.6 x10^3/uL (0.0-1.1); MONO % 8 % (0-9); NEUT # 5.4 x10^3uL (1.8-7.7); NEUT % 73 % (31-73); PLATELET COUNT 216 x10^3/uL (140-400); RED BLOOD COUNT 4.28 x10^6/uL (3.50-5.40); RED CELL DISTRIBUTION WIDTH 15.9 % (11.5-14.5); WHITE BLOOD COUNT 7.5 x10^3/uL (4.0-11.0)
--- NOTE | 2018-11-16 17:14 | PHYS DOC ---
Past Medical History Past Medical History: COPD Adult General Chief Complaint Chief Complaint: shortness of breath HPI HPI Patient is a 83 year old female who brought in by EMS because of shortness of breath. Patient has history of COPD and currently smokes one pack a day and recently was started on 2.5-3 liters of oxygen. Patient states she was eating crackers and after finishing eating felt shortness of breath and feeling of something stuck in her throat or her lung. Patient denies vomiting, fever and chills, chest pain, focal neuro deficit. Patient complaining of nonproductive cough and constant shortness of breath since it was started. Review of Systems Review of Systems Constitutional: Denies fever or chills [] Eyes: Denies change in visual acuity, redness, or eye pain [] HENT: Denies nasal congestion or sore throat [] Respiratory: Reports cough and shortness of breath Cardiovascular: No additional information not addressed in HPI [] GI: Denies abdominal pain, nausea, vomiting, bloody stools or diarrhea [] : Denies dysuria or hematuria [] Musculoskeletal: Denies back pain or joint pain [] Integument: Denies rash or skin lesions [] Neurologic: Denies headache, focal weakness or sensory changes [] Endocrine: Denies polyuria or polydipsia [] All other systems were reviewed and found to be within normal limits, except as documented in this note. Current Medications Current Medications Current Medications Medications (Trade) Dose Ordered Sig/Vania Start Time Stop Time Status Last Admin Dose Admin Albuterol/ Ipratropium (Duoneb) 3 ml 1X ONCE 11/16/18 16:45 11/16/18 16:46 DC 11/16/18 17:00 3 ML Azithromycin 250 ml @ 250 mls/hr 1X ONCE 11/16/18 17:45 11/16/18 18:44 11/16/18 17:40 250 MLS/HR Ceftriaxone Sodium (Rocephin) 1 gm 1X ONCE 11/16/18 17:45 11/16/18 17:46 DC 11/16/18 17:39 1 GM Methylprednisolone Sodium Succinate (SOLU-Medrol 125MG VIAL) 125 mg 1X ONCE 11/16/18 16:45 11/16/18 16:46 DC 11/16/18 17:39 125 MG Sodium Chloride 1,000 ml @ 500 mls/hr 1X ONCE 11/16/18 17:45 11/16/18 19:44 11/16/18 17:39 500 MLS/HR Allergies Allergies Allergies Coded Allergies Type Severity Reaction Last Updated Verified Penicillins Allergy Severe swelling 11/16/18 Yes Physical Exam Physical Exam Constitutional: Well developed, well nourished, moderate distress, non-toxic appearance. [] HENT: Normocephalic, atraumatic, oropharynx moist, no oral exudates, nose normal. [] Eyes: PERRLA, EOMI, conjunctiva normal, no discharge. [] Neck: Normal range of motion, no tenderness, supple, no stridor. [] Cardiovascular:Heart rate regular rhythm, no murmur [] Lungs & Thorax: Moderate respiratory distress with expiratory wheezing and rhonchi Abdomen: Bowel sounds normal, soft, no tenderness, no masses, no pulsatile masses. [] Skin: Warm, dry, no erythema, no rash. [] Back: No tenderness, no CVA tenderness. [] Extremities: No tenderness, no cyanosis, no clubbing, ROM intact, no edema. [] Neurologic: Alert and oriented X 3, normal motor function, normal sensory function, no focal deficits noted. [] Psychologic: Affect anxious, judgement normal, mood normal. [] Current Patient Data Vital Signs Vital Signs Date Time Temp Pulse Resp B/P (MAP) Pulse Ox O2 Delivery O2 Flow Rate FiO2 11/16/18 17:05 94 Nasal Cannula 4.0 Lab Values Laboratory Tests Test 11/16/18 16:46 White Blood Count 7.5 x10^3/uL (4.0-11.0) Red Blood Count 4.28 x10^6/uL (3.50-5.40) Hemoglobin 13.3 g/dL (12.0-15.5) Hematocrit 41.2 % (36.0-47.0) Mean Corpuscular Volume 96 fL (79-100) Mean Corpuscular Hemoglobin 31 pg (25-35) Mean Corpuscular Hemoglobin Concent 32 g/dL (31-37) Red Cell Distribution Width 15.9 % (11.5-14.5) H Platelet Count 216 x10^3/uL (140-400) Neutrophils (%) (Auto) 73 % (31-73) Lymphocytes (%) (Auto) 17 % (24-48) L Monocytes (%) (Auto) 8 % (0-9) Eosinophils (%) (Auto) 1 % (0-3) Basophils (%) (Auto) 1 % (0-3) Neutrophils # (Auto) 5.4 x10^3uL (1.8-7.7) Lymphocytes # (Auto) 1.3 x10^3/uL (1.0-4.8) Monocytes # (Auto) 0.6 x10^3/uL (0.0-1.1) Eosinophils # (Auto) 0.1 x10^3/uL (0.0-0.7) Basophils # (Auto) 0.1 x10^3/uL (0.0-0.2) Sodium Level 139 mmol/L (136-145) Potassium Level 4.2 mmol/L (3.5-5.1) Chloride Level 102 mmol/L (98-107) Carbon Dioxide Level 29 mmol/L (21-32) Anion Gap 8 (6-14) Blood Urea Nitrogen 19 mg/dL (7-20) Creatinine 0.8 mg/dL (0.6-1.0) Estimated GFR (Cockcroft-Gault) 68.2 BUN/Creatinine Ratio 24 (6-20) H Glucose Level 216 mg/dL (70-99) H Lactic Acid Level 1.0 mmol/L (0.4-2.0) Calcium Level 8.9 mg/dL (8.5-10.1) Total Bilirubin 0.4 mg/dL (0.2-1.0) Aspartate Amino Transferase (AST) 29 U/L (15-37) Alanine Aminotransferase (ALT) 43 U/L (14-59) Alkaline Phosphatase 88 U/L (46-116) Creatine Kinase 30 U/L (26-192) Troponin I Quantitative 0.017 ng/mL (0.000-0.055) WU-Uwg-L-Type Natriuretic Peptide 170 pg/mL (0-449) Total Protein 6.3 g/dL (6.4-8.2) L Albumin 3.1 g/dL (3.4-5.0) L Albumin/Globulin Ratio 1.0 (1.0-1.7) Laboratory Tests 11/16/18 16:46 Laboratory Tests 11/16/18 16:46 EKG EKG KG interpreted by me. EKG at 1700 showed normal sinus rhythm at rate of 87, left fourth axis, low voltage QRS, poor R-wave progress in anteroseptal leads, no acute ST and T-wave abnormalities. Radiology/Procedures Radiology/Procedures Chest x-ray interpreted by me and did not show infiltration. Course & Med Decision Making Course & Med Decision Making Pertinent Labs and Imaging studies reviewed. (See chart for details) Evaluation of patient in ER showed 83-year-old female patient with history of COPD brought in by EMS because of sudden onset of shortness of breath after eating. Patient had respiratory distress that improved with nebulizer and Solu- Medrol. Patient have tachycardia or fever but had trouble blood pressure to 94 and IV fluid was started. Chest x-ray did not show infiltration.Patient requiring admission for further evaluation and treatment. Discussed with Dr. Jesus who is in agreement with admission. Discussed findings and plan with patient and family, who acknowledge understanding and agreement. Dragon Disclaimer Dragon Disclaimer This electronic medical record was generated, in whole or in part, using a voice recognition dictation system. Departure Departure Impression: Primary Impression: Acute respiratory distress Additional Impression: COPD exacerbation Disposition: ADMITTED INPATIENT (at 1739) Admitting Physician: Alden Jesus (accepted admission at 1738) Condition: IMPROVED Referrals: ALDEN JESUS MD (PCP) Problem Qualifiers ISA MORSE MD November 16, 2018 17:14
[2018-11-16 17:29] LABS: CALCIUM 8.9 mg/dL (8.5-10.1); CREATININE 0.8 mg/dL (0.6-1.0); GFR 68.2; POTASSIUM 4.2 mmol/L (3.5-5.1)
[2018-11-16 17:35] LABS: ALBUMIN 3.1 g/dL (3.4-5.0); TOTAL BILIRUBIN 0.4 mg/dL (0.2-1.0); TOTAL PROTEIN 6.3 g/dL (6.4-8.2)
[2018-11-16] MEDS ORDERED: cefTRIAXone IV Push 1 GM VIAL. IVP ONE (17:45)
[2018-11-16] MEDS ORDERED: AZITHRMYCN 500MG IVPB FOR OMNI 250 ML IV ONE (17:45)
[2018-11-16] MEDS ORDERED: IV NORMAL SALINE 1000ML BAG 1,000 ML IV ONE (17:45)
--- NOTE | 2018-11-16 18:52 | RAD ---
AP portable chest radiograph 11/16/2018 Clinical History: Shortness of breath. An AP erect portable digital radiograph of the chest was obtained. Comparison study is dated 10/05/2018. The cardiac silhouette is mildly enlarged. The thoracic aorta is tortuous. Prominence of pulmonary vasculature is seen suggesting mild to moderate CHF. Linear bands of subsegmental atelectasis are seen involving the right lower lobe. There may be small bilateral pleural effusions. No pneumothorax is seen. The osseous structures are unchanged. IMPRESSION: Findings are seen suggesting mild to moderate CHF. Electronically signed by: Hunter Pickett MD (11/16/2018 6:50 PM) [facility]
[2018-11-16] MEDS ORDERED: HYDROcodone/APAP 5/325MG 1 TAB TABLET PO ONE (19:30)
--- NOTE | 2018-11-16 19:40 | NUR ---
Pt arrived from ED via WC accompanied by SPORTS EQUIPMENT SUPERVISOR. Pt has increased WOB on 4L O2 per NC. VSS obtained, admission questions asked - pt concerned with getting pain meds and ropinirole for restless leg. RN instructed pt that dr needed to be paged for med orders and then placed in computer and pharmacy had to review and verify. Pt verbalized understanding. 2020: RT approached this RN at RN station to make aware that pt was refusing all the breathing treatments because pt just wanted her pain meds and ropinirole. RN encouraged pt to take breathing tx as that was why she was admitted after taking pain meds. Pt stated would try. Will continue to monitor pt status closely.
[2018-11-16] MEDS: IPRATRPIUM/ALBUTEROL 0.5/2.5MG 3 ML NEBU. NEB SCH (20:00)
[2018-11-16] MEDS ORDERED: ACETAMINOPHEN 325 MG TABLET. PO PRN (20:15)
[2018-11-16] MEDS ORDERED: DEXTROSE 50% 25 GM / 50ML DISP.SYRIN. IV PRN (20:15)
[2018-11-16] MEDS ORDERED: ALBUTEROL SULFATE 2.5 MG/3 ML NEBU. NEB PRN (20:15)
[2018-11-16] MEDS: rOPINIRole 1 MG TABLET. PO SCH (20:43)
[2018-11-16] MEDS ORDERED: FAMOTIDINE 20 MG TABLET. PO SCH (21:00)
[2018-11-16] MEDS: INSULIN LISPRO 300 UNITS/3 ML INSULN.PEN. SQ SCH (21:00)
[2018-11-16 23:52] VITALS: BP 149/77
[2018-11-16] MEDS: IV NORMAL SALINE 1000ML BAG 1,000 ML IV SCH (23:59)
[2018-11-17] MEDS: methylPREDNISolone SOD SUCC PF 125 MG/2 ML VIAL. IV SCH ×2 (00:05→05:52)
[2018-11-17 03:25] VITALS: BP 165/86
--- NOTE | 2018-11-17 06:46 | EKG ---
[facility] [address] [place] [address] Test Date: 2018-11-16 Test Time: 17:00:37 Pat Name: ADEN GALLOWAY Department: Room: [facility] Gender: F Primary Operator: : 1935 Requested By: ISA MORSE Order Number: [id number] Reading MD: Rangel Muller Measurements Intervals [place] Rate: 87 P: 7 RI: 208 QRS: -19 QRSD: 70 T: 12 QT: 314 QTc: 383 Interpretive Statements SINUS RHYTHM LEFTWARD AXIS LOW LIMB LEAD VOLTAGE QRS(T) CONTOUR ABNORMALITY CONSIDER ANTEROSEPTAL INFARCT POSSIBLY ABNORMAL ECG Electronically Signed On 12-11-2018 11:41:23 CDT by Rangel Muller
[2018-11-17 07:00] VITALS: BP 132/75
[2018-11-17] MEDS: IPRATRPIUM/ALBUTEROL 0.5/2.5MG 3 ML NEBU. NEB SCH (07:32)
[2018-11-17] MEDS: PANTOPRAZOLE 40 MG TABLET.DR. PO SCH (08:46)
[2018-11-17] MEDS: LOSARTAN POTASSIUM 50 MG TABLET. PO SCH (08:46)
[2018-11-17] MEDS: amLODIPine BESYLATE 5 MG TABLET PO SCH (08:46)
[2018-11-17] MEDS: HYDROcodone/APAP 7.5/325MG 1 TAB TABLET PO PRN ×3 (08:58→21:11)
[2018-11-17] MEDS: INSULIN LISPRO 300 UNITS/3 ML INSULN.PEN. SQ SCH ×3 (09:06→17:15)
--- NOTE | 2018-11-17 09:21 | CONS ---
DATE OF CONSULTATION: ATTENDING PHYSICIAN: Dr. Jesus. REASON FOR CONSULTATION: Dyspnea, respiratory failure. HISTORY OF PRESENT ILLNESS: The patient is an 83-year-old female who has history of suspected severe COPD with chronic hypoxic respiratory failure. She has been a smoker since age 15 and continues to smoke 1 pack a day. She has been recently placed on 2.5-3 liters of oxygen. She was eating crackers. After finishing eating, she felt short of breath. She felt like something stuck in her throat. She had no vomiting, no chest pain. No fever, no chills. She has a mild cough. The patient had an abnormal CT chest in October and at that time she has bilateral pneumonia and also soft tissue density in the right middle lobe. A repeat CT chest was performed, which was also reviewed by me on 11/13/2018. The patient's overall infiltrates have improved. However, there is still persistent soft tissue density in the medial aspect of right middle lobe with extension into the hilum and measuring about 3.8 cm in size. There is also some partial obscuration of the proximal right middle lobe bronchus. I have been asked to see her for further evaluation. PAST MEDICAL HISTORY: Significant for history of chronic respiratory failure, history of suspected severe COPD with ongoing tobaccoism and history of abnormal CT chest. PAST SURGICAL HISTORY: No recent surgeries. ALLERGIES: PENICILLIN. REVIEW OF SYSTEMS: Twelve-point systems obtained. Pertinent positives discussed in my history of present illness, otherwise noncontributory. All systems that were negative were reviewed as well. SOCIAL HISTORY: She has been a smoker since age 15 and continues to smoke cigarettes with no desire of quitting cigarettes. MEDICATIONS: All reviewed, as listed in the MRAD. FAMILY HISTORY: Noncontributory to lungs. PHYSICAL EXAMINATION: VITAL SIGNS: Reviewed. Pulse ox 94% on 4 liters, afebrile. HEENT: Sclerae nonicteric. NECK: Supple. LUNGS: Diminished breath sounds at the bases. CARDIOVASCULAR: Regular rate. ABDOMEN: Soft, nontender. EXTREMITIES: With no pitting edema. LABORATORY DATA: Reviewed. White cell count 7.5, hemoglobin is 13.3 and platelets are 217. BUN and creatinine 19 and 0.8. IMPRESSION: 1. Snrxx-xv-vafchjv hypoxic respiratory failure secondary to acute exacerbation of chronic obstructive pulmonary disease. 2. Persistently abnormal CT chest with abnormal soft tissue density in the right middle lobe, which has not changed since 10/05/2018 CT chest. It measures 3.8 cm. Likely represents a malignancy. She is at high risk for bronchoscopy. 3. 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 4. Overall pulmonary infiltrates have improved since scan from October and suggesting resolving pneumonia. RECOMMENDATIONS: 1. Discussed with the patient and the son. I have also discussed advanced directives. She has no desire to quit cigarettes. She agrees to be a DNR completely. 2. No intubation, no chest compression. 3. I would recommend having a PET scan as an outpatient to confirm this as a neoplastic density in the right middle lobe. She would be a high risk candidate for bronchoscopy. Even if malignancy is diagnosed, she is not an optimum candidate for any form of treatment. Conservative followup would be reasonable, but I would recommend doing a PET scan as an outpatient. 4. Continue bronchodilators. 5. Continue oxygen and gradual wean to baseline of 2-3 liters. 6. Discussed with son, RN and patient. 7. Needs to quit cigarettes. Has no desire to do so. VASYL LAM MD DR: ANDREIA/kaveh JOB#: [id number] / [id number] LAXMI
[2018-11-17] MEDS: IV NORMAL SALINE 1000ML BAG 1,000 ML IV SCH (10:01)
--- NOTE | 2018-11-17 10:07 | NUR ---
Please order PT/OT eval when pt deemed appropriate. Pt admitted for acute respiratory distress. Pt would benefit from further therapy evaluation. Addendum: 11/17/18 at 1008 by ALEXA BEE, PT PT Amended: Links added.
--- NOTE | 2018-11-17 10:35 | PDOC ---
Provider Note Provider Note history and physical dictated # [id number] HIPOLITO SCHAFER MD November 17, 2018 10:35
[2018-11-17 11:00] VITALS: BP 128/70
[2018-11-17] MEDS: methylPREDNISolone SOD SUCC PF 40 MG/ML VIAL. IV SCH ×2 (11:03→20:47)
[2018-11-17] MEDS: LEVALBUTEROL 1.25 MG/0.5 ML NEBU. NEB SCH ×3 (11:30→20:02)
--- NOTE | 2018-11-17 11:49 | HP ---
ADMIT DATE: 11/16/2018 LOCATION: She is in room 658. HISTORY OF PRESENT ILLNESS: The patient is an 83-year-old white female with history of chronic hypoxic respiratory failure, and maintained on DuoNebs and 3 liters of continuous oxygen per nasal cannula at home, who has chronic obstructive pulmonary disease and chronic hypoxic respiratory failure, who has had some intermittent shortness of breath. She apparently was eating some crackers yesterday and had some shortness of breath. She notes her phlegm has been thick and white. She has had some cough. Denies any fever or chills. She has got a mild cough. She had a CAT scan of the chest done in October, which showed bilateral pneumonia and she was admitted and treated with antibiotics. She had a soft tissue density in the right middle lobe and a repeat CAT scan of the chest done on 11/13/2018 showed that she had a 3.8 cm right middle lobe lung density. Dr. Talbot has already seen the patient in consultation and felt that most likely this was a malignancy, but the patient would be a poor candidate for a bronchoscopy and even for treatment for her lung, should it be a lung cancer and so, recommended outpatient PET scan to further evaluate this. The patient is aware of it and wishes to be a Do Not Resuscitate. The patient's son is also in the room. The patient is therefore admitted for further evaluation of an acute exacerbation of chronic obstructive pulmonary disease. She received nebulizer treatments and IV Solu-Medrol, Rocephin and Zithromax last night in the Emergency Room. She also notes some recent shortness of breath too; as mentioned, it was several days prior to admission. ALLERGIES AND INTOLERANCES: PENICILLIN, but she has tolerated Rocephin last night. MEDICATIONS PRIOR TO ADMISSION: Include amlodipine 5 mg every day, losartan 50 mg every day, albuterol nebulizer treatments q.i.d. p.r.n. and famotidine 40 mg at bedtime. She is off of the methotrexate, Humira and folic acid, but she takes Requip 1 mg at 05:00 p.m. and 2 mg at bedtime. She takes Spiriva 1 puff every day, Prilosec dcur-ooa-vdwdohy 20 mg every day and Ventolin inhaler p.r.n. PAST MEDICAL HISTORY: Past history is significant for chronic obstructive pulmonary disease. She was hospitalized with right middle lobe pneumonia in 10/2018. She has gastroesophageal reflux disease and hypertension. She has a history of psoriatic arthritis, but her instructional systems specialist took her off the Humira, methotrexate and folic acid. She has a history of osteoporosis and osteoarthritis of her knee. There is chronic obstructive pulmonary disease and chronic hypoxic respiratory failure, maintaining on 2.5 to 3 liters of oxygen per nasal cannula. She had an EGD with dilatation in 08/2012, an open reduction and internal fixation for a right hip fracture in 2012 and a colostomy was placed in 2014, reversed. She has a history of hemorrhoidectomy, appendectomy, vocal cord nodule removed in 2012, restless leg syndrome and overactive bladder. SOCIAL HISTORY: She smokes about 1 pack per day for at least 64 years. She does not drink alcohol. She is . She uses a roller walker. FAMILY HISTORY: Noncontributory. REVIEW OF SYSTEMS: GENERAL: She has had no fever, chills or sweats in the last 3 days. CARDIOVASCULAR: No chest pain. PULMONARY: Some shortness of breath and cough. GASTROINTESTINAL: No constipation or diarrhea. ENDOCRINE: No diabetes mellitus. SKIN: No rashes. The rest of the systems reviewed are negative, except as stated in the history of present illness. PHYSICAL EXAMINATION: VITAL SIGNS: Temperature is 97.7 degrees, apical pulse 89, respiratory rate is 18, blood pressure 132/75 and oxygen saturation 94% on 4 liters per nasal cannula. HEENT: Eyes, gaze is conjugate. Extraocular muscles are intact. Mouth, tongue is midline. NECK: There is no cervical lymphadenopathy or thyroid enlargement. HEART: Reveals an S1, S2. There is no S3 or murmur. LUNGS: Reveal decreased breath sounds bilaterally. ABDOMEN: Soft. EXTREMITIES: Lower extremities without edema. NEUROLOGICAL EXAMINATION: She is coherent. She has got 5/5 hand compliance specialist and able to dorsiflex and plantarflex both feet, flex and extend her knees and raise her thigh off the edge of the bed bilaterally. SKIN: No rashes. LABORATORY DATA: Review of her laboratory tests, the white count was 7.5, hemoglobin 13.3, platelet count 216,000 with polys 73 and lymphocytes 17. Sodium 139, potassium 4.2, chloride 102, total CO2 is 29, BUN 19, creatinine 0.8 and blood sugar was 260 last night. Liver function tests normal. Albumin 3.1. Fingerstick blood sugar is normal this morning and it was 191, but she did get Solu-Medrol in the Emergency Room. Troponin level was negative. ProBNP was normal at 170. She had a chest x-ray done, which was consistent with prominent pulmonary vasculature, which could be secondary to pulmonary hypertension. She had small bilateral pleural effusions. She had some atelectasis in the right lower lobe. As mentioned, she had a recent outpatient CT of the chest, which showed a right middle lobe lung density, which is suspicious for malignancy and she had an electrocardiogram done. ASSESSMENT: 1. Yajua-wk-cilnsfg hypoxic respiratory failure. 2. Right middle lobe lung mass, suspicious for lung cancer. 3. Acute exacerbation of chronic obstructive pulmonary disease. 4. Hypertension. 5. Restless leg syndrome. 6. Gastroesophageal reflux disease. 7. Hyperglycemia, which could be steroid induced, although it is unclear if she has diabetes mellitus. PLAN: The plan at this time is to treat her with IV Rocephin and Zithromax and we will also order some IV Solu-Medrol 40 mg every 12 hours, as she needs for deep vein thrombosis prophylaxis. We will order Mucinex. We will continue with her home medications. Discontinue the IV fluids. Check her blood sugars before meals t.i.d. and put her on a Humalog insulin sliding scale at low dose and we will also get a hemoglobin A1c tomorrow. She has already been seen in consultation by Dr. Talbot and she wishes to be a Do Not Resuscitate. HIPOLITO SCHAFER MD DR: ASAEL/kaveh JOB#: [id number] / [id number]
[2018-11-17] MEDS ORDERED: IPRATROPIUM BROMIDE 0.5 MG/2.5 ML NEBU. NEB SCH (12:00)
--- NOTE | 2018-11-17 14:30 | NUR ---
SW following pt for anticipated dc needs. Chart reviewed. Pt lives at home with spouse/family. PT/OT pending. SW will await for PT/OT recommendation to assess skilled needs. Will continue to follow.
[2018-11-17 15:00] VITALS: BP 126/69
[2018-11-17] MEDS: rOPINIRole 1 MG TABLET. PO SCH ×2 (17:00→20:46)
[2018-11-17] MEDS ORDERED: cefTRIAXone IV Push 1 GM VIAL. IVP SCH (18:00)
[2018-11-17 19:30] VITALS: BP 128/63
[2018-11-17] MEDS: LACTOBACILLUS RHAMNOSUS GG 1 CAPSULE. PO SCH (20:46)
[2018-11-17] MEDS: AZITHROMYCIN 250 MG TABLET. PO SCH (20:46)
[2018-11-17] MEDS: MAG HYDROX/ALUMINUM HYD/SIMETH 30 ML ORAL.SUSP PO PRN (21:10)
[2018-11-17 23:30] VITALS: BP 113/51
[2018-11-18 03:30] VITALS: BP 125/71
[2018-11-18 07:00] VITALS: BP 117/63
[2018-11-18] MEDS: LEVALBUTEROL 1.25 MG/0.5 ML NEBU. NEB SCH ×3 (07:45→19:58)
[2018-11-18] MEDS: INSULIN LISPRO 300 UNITS/3 ML INSULN.PEN. SQ SCH ×3 (08:00→17:18)
[2018-11-18] MEDS: methylPREDNISolone SOD SUCC PF 40 MG/ML VIAL. IV SCH ×2 (08:25→21:19)
[2018-11-18] MEDS: LACTOBACILLUS RHAMNOSUS GG 1 CAPSULE. PO SCH ×2 (08:30→21:13)
[2018-11-18] MEDS: PANTOPRAZOLE 40 MG TABLET.DR. PO SCH (08:30)
[2018-11-18] MEDS: amLODIPine BESYLATE 5 MG TABLET PO SCH (08:44)
[2018-11-18] MEDS: LOSARTAN POTASSIUM 50 MG TABLET. PO SCH (08:44)
--- NOTE | 2018-11-18 10:14 | PDOC ---
PROGRESS NOTES Subjective Subjective feels better. has black diarrhea that she attributes to antibiotics. not coughing. not short of breath this morning. not taking iron or pepto-bismol. Objective Objective Vital Signs Date Time Temp Pulse Resp B/P (MAP) Pulse Ox O2 Delivery O2 Flow Rate FiO2 11/18/18 08:44 92 117/63 11/18/18 07:47 94 Nasal Cannula 4.0 11/18/18 07:00 98.5 18 98.5 Intake and Output 11/18/18 06:59 Intake Total 250 ml Balance 250 ml Intake Oral 250 ml # Voids 1 # Bowel Movements 1 Physical Exam Abdomen: Soft Heart: Regular rate, Normal S1, Normal S2 Extremities: No edema General: Alert HEENT: Atraumatic Lungs: Other (clear but decreased breath sounds bilaterally) Neuro: Normal speech Psych/Mental Status: Mental status NL Skin: No rashes Assessment Assessment Problems1. [id number] hypoxic respiratory failure. 2. Right middle lobe lung mass, suspicious for lung cancer. 3. Acute exacerbation of chronic obstructive pulmonary disease. 4. Hypertension. 5. Restless leg syndrome. 6. Gastroesophageal reflux disease. 7. Hyperglycemia, which could be steroid induced, although it is unclear if she has diabetes mellitus. diarrhea with black stools Medical Problems: (1) Acute respiratory distress Status: Acute Plan Plan of Care GI consult stool for occult blood lab tomorrow d/c rocephin continue zithromax continue iv solumedrol Comment Review of Relevant I have reviewed the following items anette (where applicable) has been applied. Labs Laboratory Tests Test 11/16/18 16:46 11/17/18 09:00 11/17/18 11:45 11/17/18 17:07 White Blood Count 7.5 x10^3/uL (4.0-11.0) Red Blood Count 4.28 x10^6/uL (3.50-5.40) Hemoglobin 13.3 g/dL (12.0-15.5) Hematocrit 41.2 % (36.0-47.0) Mean Corpuscular Volume 96 fL (79-100) Mean Corpuscular Hemoglobin 31 pg (25-35) Mean Corpuscular Hemoglobin Concent 32 g/dL (31-37) Red Cell Distribution Width 15.9 % (11.5-14.5) Platelet Count 216 x10^3/uL (140-400) Neutrophils (%) (Auto) 73 % (31-73) Lymphocytes (%) (Auto) 17 % (24-48) Monocytes (%) (Auto) 8 % (0-9) Eosinophils (%) (Auto) 1 % (0-3) Basophils (%) (Auto) 1 % (0-3) Neutrophils # (Auto) 5.4 x10^3uL (1.8-7.7) Lymphocytes # (Auto) 1.3 x10^3/uL (1.0-4.8) Monocytes # (Auto) 0.6 x10^3/uL (0.0-1.1) Eosinophils # (Auto) 0.1 x10^3/uL (0.0-0.7) Basophils # (Auto) 0.1 x10^3/uL (0.0-0.2) Sodium Level 139 mmol/L (136-145) Potassium Level 4.2 mmol/L (3.5-5.1) Chloride Level 102 mmol/L (98-107) Carbon Dioxide Level 29 mmol/L (21-32) Anion Gap 8 (6-14) Blood Urea Nitrogen 19 mg/dL (7-20) Creatinine 0.8 mg/dL (0.6-1.0) Estimated GFR (Cockcroft-Gault) 68.2 BUN/Creatinine Ratio 24 (6-20) Glucose Level 216 mg/dL (70-99) Lactic Acid Level 1.0 mmol/L (0.4-2.0) Calcium Level 8.9 mg/dL (8.5-10.1) Total Bilirubin 0.4 mg/dL (0.2-1.0) Aspartate Amino Transf (AST/SGOT) 29 U/L (15-37) Alanine Aminotransferase (ALT/SGPT) 43 U/L (14-59) Alkaline Phosphatase 88 U/L (46-116) Creatine Kinase 30 U/L (26-192) Troponin I Quantitative 0.017 ng/mL (0.000-0.055) KA-Vcx-G-Type Natriuretic Peptide 170 pg/mL (0-449) Total Protein 6.3 g/dL (6.4-8.2) Albumin 3.1 g/dL (3.4-5.0) Albumin/Globulin Ratio 1.0 (1.0-1.7) Glucose (Fingerstick) 191 mg/dL (70-99) 183 mg/dL (70-99) 310 mg/dL (70-99) Test 11/17/18 21:18 11/18/18 08:21 Glucose (Fingerstick) 120 mg/dL (70-99) 98 mg/dL (70-99) Laboratory Tests Test 11/17/18 11:45 11/17/18 17:07 11/17/18 21:18 11/18/18 08:21 Glucose (Fingerstick) 183 mg/dL (70-99) 310 mg/dL (70-99) 120 mg/dL (70-99) 98 mg/dL (70-99) Microbiology 11/16/18 Blood Culture - Preliminary, Resulted NO GROWTH AFTER 1 DAY Medications Current Medications Albuterol/ Ipratropium (Duoneb) 3 ml 1X ONCE NEB Last administered on 11/16/18at 17:00; Start 11/16/18 at 16:45; Stop 11/16/18 at 16:46; Status DC Methylprednisolone Sodium Succinate (SOLU-Medrol 125MG VIAL) 125 mg 1X ONCE IV Last administered on 11/16/18at 17:39; Start 11/16/18 at 16:45; Stop 11/16/18 at 16:46; Status DC Ceftriaxone Sodium (Rocephin) 1 gm 1X ONCE IVP Last administered on 11/16/18at 17:39; Start 11/16/18 at 17:45; Stop 11/16/18 at 17:46; Status DC Azithromycin 250 ml @ 250 mls/hr 1X ONCE IV Last administered on 11/16/18at 17:40; Start 11/16/18 at 17:45; Stop 11/16/18 at 18:44; Status DC Sodium Chloride 1,000 ml @ 500 mls/hr 1X ONCE IV Last administered on 11/16/18at 17:39; Start 11/16/18 at 17:45; Stop 11/16/18 at 19:44; Status DC Sodium Chloride 1,000 ml @ 100 mls/hr Q10H IV Last administered on 11/17/18at 10:01; Start 11/16/18 at 17:48; Stop 11/17/18 at 13:10; Status DC Albuterol/ Ipratropium (Duoneb) 3 ml RTQID NEB ; Start 11/16/18 at 20:00; Stop 11/17/18 at 09:49; Status DC Methylprednisolone Sodium Succinate (SOLU-Medrol 125MG VIAL) 62.5 mg Q8HRS IV Last administered on 11/17/18at 05:52; Start 11/16/18 at 22:00; Stop 11/17/18 at 06:01; Status DC Acetaminophen/ Hydrocodone Bitart (Lortab 5/325) 2 tab 1X ONCE PO Last administered on 11/16/18at 20:43; Start 11/16/18 at 19:30; Stop 11/16/18 at 19:31; Status DC Albuterol Sulfate (Ventolin Neb Soln) 2.5 mg PRN Q4HRS PRN NEB SHORTNESS OF B REATH; Start 11/16/18 at 20:15 Acetaminophen (Tylenol) 650 mg PRN Q6HRS PRN PO pain/fever; Start 11/16/18 at 20:15 Insulin Human Lispro (HumaLOG) 0-6 UNITS TIDWMEALS SQ Last administered on 11/17/18at 17:15; Start 11/16/18 at 21:00 Dextrose (Dextrose 50%-Water Syringe) 12.5 gm PRN Q15MIN PRN IV SEE COMMENTS; Start 11/16/18 at 20:15 Amlodipine Besylate (Norvasc) 5 mg DAILY PO Last administered on 11/18/18at 08:44; Start 11/17/18 at 09:00 Acetaminophen/ Hydrocodone Bitart (Lortab 7.5/325) 1 tab PRN Q4HRS PRN PO MODERATE - SEVERE PAIN Last administered on 11/17/18at 21:11; Start 11/16/18 at 20:30 Losartan Potassium (Cozaar) 50 mg DAILY PO Last administered on 11/18/18at 08:44; Start 11/17/18 at 09:00 Famotidine (Pepcid) 20 mg QHS PO ; Start 11/16/18 at 21:00; Status Cancel Pantoprazole Sodium (Protonix) 40 mg DAILYAC PO Last administered on 11/18/18at 08:30; Start 11/17/18 at 07:30 Ropinirole HCl (Requip) 1 mg DAILYWSUP PO ; Start 11/17/18 at 17:00 Ropinirole HCl (Requip) 2 mg QHS PO Last administered on 11/17/18 20:46; Start 11/16/18 at 21:00 Levalbuterol HCl (Xopenex) 1.25 mg TID NEB Last administered on 11/18/18 07:45; Start 11/17/18 at 10:00 Methylprednisolone Sodium Succinate (SOLU-Medrol 40MG VIAL) 40 mg Q12HR IV Last administered on 11/18/18 08:25; Start 11/17/18 at 11:00 Ceftriaxone Sodium (Rocephin) 1 gm Q24H IVP Last administered on 11/17/18 20:46; Start 11/17/18 at 18:00 Azithromycin (Zithromax) 250 mg Q24H PO Last administered on 11/17/18 20:46; Start 11/17/18 at 18:00 Guaifenesin (Mucinex) 600 mg BID PO Last administered on 11/18/18at 08:30; Start 11/17/18 at 11:00 Ipratropium [place] (Atrovent) 0.5 mg RTQID NEB ; Start 11/17/18 at 12:00; Stop 11/17/18 at 23:28; Status DC Lactobacillus Rhamnosus (Culturelle) 1 cap BID PO Last administered on 11/18/18 08:30; Start 11/17/18 at 21:00 Al Hydroxide/Mg Hydroxide (Mylanta Plus Xs) 30 ml PRN Q4HRS PRN PO HEARTBURN / GAS Last administered on 11/17/18at 21:10; Start 11/17/18 at 21:15 Active Scripts Active Prednisone 20 Mg Tablet 40 Mg PO DAILY 5 Days Reported Hydrocodone-Apap 7.5-325 (Hydrocodone Bit/Acetaminophen) 1 Tab Tablet 1 Tab PO PRN Q4HRS PRN Ropinirole Hcl 2 Mg Tablet 2 Mg PO HS Amlodipine Besylate 5 Mg Tablet 5 Mg PO DAILY Ropinirole Hcl 1 Mg Tablet 1 Mg PO DAILYWSUP Duoneb 0.5-3(2.5) Mg/3 Ml (Albuterol/Ipratropium) 3 Ml Ampul.neb 1 INH PRN Q4- 6HRS PRN Losartan Potassium 50 Mg Tablet 50 Mg PO DAILY Prilosec Otc (Omeprazole Magnesium) 20 Mg Tablet.dr 1 Tab PO DAILY Famotidine 40 Mg Tablet 40 Mg PO HS Vitals/I & O Vital Sign - Last 24 Hours 11/17/18 11/17/18 11/17/18 11/17/18 11:00 11:30 15:00 15:55 Temp 98.1 97.6 98.1 97.6 Pulse 89 99 Resp 18 18 B/P (MAP) 128/70 (89) 126/69 (88) Pulse Ox 94 94 94 94 O2 Delivery Nasal Cannula Nasal Cannula Nasal Cannula Nasal Cannula O2 Flow Rate 4.0 4.0 4.0 4.0 11/17/18 11/17/18 11/17/18 11/17/18 17:11 19:30 20:02 20:10 Temp 97.8 97.8 Pulse 90 Resp 20 B/P (MAP) 128/63 (84) Pulse Ox 94 95 94 O2 Delivery Nasal Cannula Nasal Cannula Nasal Cannula Nasal Cannula O2 Flow Rate 4.0 4.0 4.0 4.0 11/17/18 11/18/18 11/18/18 11/18/18 23:30 03:30 07:00 07:47 Temp 97.6 98.0 98.5 97.6 98.0 98.5 Pulse 89 82 92 Resp 20 20 18 B/P (MAP) 113/51 (71) 125/71 (89) 117/63 (81) Pulse Ox 100 96 91 94 O2 Delivery Nasal Cannula Nasal Cannula Nasal Cannula Nasal Cannula O2 Flow Rate 4.0 4.0 4.0 4.0 11/18/18 11/18/18 08:44 08:44 Pulse 92 92 B/P (MAP) 117/63 117/63 Intake and Output 11/17/18 11/17/18 11/18/18 14:59 22:59 06:59 Intake Total 150 ml 100 ml 0 ml Balance 150 ml 100 ml 0 ml HIPOLITO SCHAFER MD November 18, 2018 10:14
[2018-11-18 10:23] LABS: HEMOGLOBIN A1C 5.6 % (4.8-5.6)
--- NOTE | 2018-11-18 10:37 | PDOC ---
PULMONARY PROGRESS NOTES Subjective no soa Vitals Vital Signs Date Time Temp Pulse Resp B/P (MAP) Pulse Ox O2 Delivery O2 Flow Rate FiO2 11/18/18 08:44 92 117/63 11/18/18 07:47 94 Nasal Cannula 4.0 11/18/18 07:00 98.5 18 98.5 General: Alert, No acute distress Lungs: Other (decrease bases) Cardiovascular: S1 Abdomen: Soft Neuro Exam: Alert Extremities: No Edema Skin: Warm Labs Laboratory Tests Test 11/16/18 16:46 11/17/18 09:00 11/17/18 11:45 11/17/18 17:07 White Blood Count 7.5 x10^3/uL (4.0-11.0) Red Blood Count 4.28 x10^6/uL (3.50-5.40) Hemoglobin 13.3 g/dL (12.0-15.5) Hematocrit 41.2 % (36.0-47.0) Mean Corpuscular Volume 96 fL (79-100) Mean Corpuscular Hemoglobin 31 pg (25-35) Mean Corpuscular Hemoglobin Concent 32 g/dL (31-37) Red Cell Distribution Width 15.9 % (11.5-14.5) Platelet Count 216 x10^3/uL (140-400) Neutrophils (%) (Auto) 73 % (31-73) Lymphocytes (%) (Auto) 17 % (24-48) Monocytes (%) (Auto) 8 % (0-9) Eosinophils (%) (Auto) 1 % (0-3) Basophils (%) (Auto) 1 % (0-3) Neutrophils # (Auto) 5.4 x10^3uL (1.8-7.7) Lymphocytes # (Auto) 1.3 x10^3/uL (1.0-4.8) Monocytes # (Auto) 0.6 x10^3/uL (0.0-1.1) Eosinophils # (Auto) 0.1 x10^3/uL (0.0-0.7) Basophils # (Auto) 0.1 x10^3/uL (0.0-0.2) Sodium Level 139 mmol/L (136-145) Potassium Level 4.2 mmol/L (3.5-5.1) Chloride Level 102 mmol/L (98-107) Carbon Dioxide Level 29 mmol/L (21-32) Anion Gap 8 (6-14) Blood Urea Nitrogen 19 mg/dL (7-20) Creatinine 0.8 mg/dL (0.6-1.0) Estimated GFR (Cockcroft-Gault) 68.2 BUN/Creatinine Ratio 24 (6-20) Glucose Level 216 mg/dL (70-99) Lactic Acid Level 1.0 mmol/L (0.4-2.0) Calcium Level 8.9 mg/dL (8.5-10.1) Total Bilirubin 0.4 mg/dL (0.2-1.0) Aspartate Amino Transf (AST/SGOT) 29 U/L (15-37) Alanine Aminotransferase (ALT/SGPT) 43 U/L (14-59) Alkaline Phosphatase 88 U/L (46-116) Creatine Kinase 30 U/L (26-192) Troponin I Quantitative 0.017 ng/mL (0.000-0.055) KD-Fbk-W-Type Natriuretic Peptide 170 pg/mL (0-449) Total Protein 6.3 g/dL (6.4-8.2) Albumin 3.1 g/dL (3.4-5.0) Albumin/Globulin Ratio 1.0 (1.0-1.7) Glucose (Fingerstick) 191 mg/dL (70-99) 183 mg/dL (70-99) 310 mg/dL (70-99) Test 11/17/18 21:18 11/18/18 04:40 11/18/18 08:21 Glucose (Fingerstick) 120 mg/dL (70-99) 98 mg/dL (70-99) Hemoglobin A1c 5.6 % (4.8-5.6) Laboratory Tests Test 11/17/18 11:45 11/17/18 17:07 11/17/18 21:18 11/18/18 04:40 Glucose (Fingerstick) 183 mg/dL (70-99) 310 mg/dL (70-99) 120 mg/dL (70-99) Hemoglobin A1c 5.6 % (4.8-5.6) Test 11/18/18 08:21 Glucose (Fingerstick) 98 mg/dL (70-99) Medications Active Scripts Medications Dose Route/Sig Max Daily Dose Days Date Category Prednisone 20 Mg Tablet 40 Mg PO DAILY 5 10/09/18 Rx Hydrocodone-Apap 7.5-325 (Hydrocodone Bit/Acetaminophen) 1 Tab Tablet 1 Tab PO PRN Q4HRS PRN 10/05/18 Reported Ropinirole Hcl 2 Mg Tablet 2 Mg PO HS 10/05/18 Reported Amlodipine Besylate 5 Mg Tablet 5 Mg PO DAILY 10/05/18 Reported Ropinirole Hcl 1 Mg Tablet 1 Mg PO DAILYWSUP 10/05/18 Reported Duoneb 0.5-3(2.5) Mg/3 Ml (Albuterol/Ipratropium) 3 Ml Ampul.neb 1 INH PRN Q4-6HRS PRN 10/05/18 Reported Losartan Potassium 50 Mg Tablet 50 Mg PO DAILY 10/05/18 Reported Prilosec Otc (Omeprazole Magnesium) 20 Mg Tablet. 1 Tab PO DAILY 05/16/14 Reported Famotidine 40 Mg Tablet 40 Mg PO HS 05/16/14 Reported Impression . 1. Oawxu-pn-oxrisxc hypoxic respiratory failure secondary to acute exacerbation of chronic obstructive pulmonary disease. 2. Persistently abnormal CT chest with abnormal soft tissue density in the right middle lobe, which has not changed since 10/05/2018 CT chest. It measures 3.8 cm. Likely represents a malignancy. She is at high risk for bronchoscopy. 3. 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 4. Overall pulmonary infiltrates have improved since scan from October and suggesting resolving pneumonia. Plan . 1. Discussed with the patient and the son. I have also discussed advanced directives. she plans to quit cigarettes. She agrees to be a DNR 2. No intubation, no chest compression. 3. I would recommend having a PET scan as an outpatient to confirm this as a neoplastic density in the right middle lobe. She would be a high risk candidate for bronchoscopy looking for mucous plug. Even if malignancy is diagnosed, she is not an optimum candidate for any form of treatment. Conservative followup would be reasonable, but I would recommend doing a PET scan as an outpatient. 4. Continue bronchodilators. 5. Continue oxygen and gradual wean to baseline of 2-3 liters. 6. Discussed with son, RN and patient. 7. dc plans per VASYL CORDOBA MD November 18, 2018 10:37
[2018-11-18 11:00] VITALS: BP 116/66
[2018-11-18] MEDS: HYDROcodone/APAP 7.5/325MG 1 TAB TABLET PO PRN ×2 (13:05→21:13)
[2018-11-18 15:00] VITALS: BP 121/68
[2018-11-18] MEDS: rOPINIRole 1 MG TABLET. PO SCH ×2 (17:00→21:13)
[2018-11-18] MEDS: AZITHROMYCIN 250 MG TABLET. PO SCH (18:21)
[2018-11-18 19:49] VITALS: BP 124/67
[2018-11-18 23:28] VITALS: BP 121/63
[2018-11-19] MEDS: MAG HYDROX/ALUMINUM HYD/SIMETH 30 ML ORAL.SUSP PO PRN ×2 (00:55→08:46)
[2018-11-19 04:19] LABS: BASO % 0 % (0-3); EOS % 0 % (0-3); HEMATOCRIT 37.1 % (36.0-47.0); LYMPH # 0.6 x10^3/uL (1.0-4.8); LYMPH % 4 % (24-48); MEAN CORPUSCULAR HEMOGLOBIN 31 pg (25-35); MEAN CORPUSCULAR HGB CONC 32 g/dL (31-37); MEAN CORPUSCULAR VOLUME 97 fL (79-100); MONO # 0.2 x10^3/uL (0.0-1.1); MONO % 2 % (0-9); NEUT # 12.4 x10^3uL (1.8-7.7); NEUT % 94 % (31-73); PLATELET COUNT 172 x10^3/uL (140-400); RED BLOOD COUNT 3.84 x10^6/uL (3.50-5.40); RED CELL DISTRIBUTION WIDTH 16.1 % (11.5-14.5); WHITE BLOOD COUNT 13.2 x10^3/uL (4.0-11.0)
[2018-11-19 04:37] LABS: CALCIUM 8.8 mg/dL (8.5-10.1); CREATININE 0.7 mg/dL (0.6-1.0); GFR 79.5; POTASSIUM 4.8 mmol/L (3.5-5.1)
[2018-11-19] MEDS: LEVALBUTEROL 1.25 MG/0.5 ML NEBU. NEB SCH ×2 (07:55→12:01)
[2018-11-19 07:57] VITALS: BP 137/67
[2018-11-19] MEDS: INSULIN LISPRO 300 UNITS/3 ML INSULN.PEN. SQ SCH ×2 (08:00→11:41)
[2018-11-19] MEDS: methylPREDNISolone SOD SUCC PF 40 MG/ML VIAL. IV SCH (08:40)
[2018-11-19] MEDS: LOSARTAN POTASSIUM 50 MG TABLET. PO SCH (08:41)
[2018-11-19] MEDS: amLODIPine BESYLATE 5 MG TABLET PO SCH (08:41)
[2018-11-19] MEDS: PANTOPRAZOLE 40 MG TABLET.DR. PO SCH (08:41)
[2018-11-19] MEDS: HYDROcodone/APAP 7.5/325MG 1 TAB TABLET PO PRN (08:41)
[2018-11-19] MEDS: LACTOBACILLUS RHAMNOSUS GG 1 CAPSULE. PO SCH (08:42)
--- NOTE | 2018-11-19 09:27 | NUR ---
SW following pt. PT recommends Home health and SW will arrange HH if ordered by Physician.
[2018-11-19 09:58] LABS: % BANDS 1 % (0-9); % LYMPHS 5 % (24-48); % MONOS 1 % (0-10); % SEGS 93 % (35-66); PLT ESTIMATE ADEQUATE (ADEQUATE)
--- NOTE | 2018-11-19 10:28 | PDOC ---
PROGRESS NOTES Subjective Subjective feels well. diarrhea much improved. wants to go home. not short of breath. Objective Objective Vital Signs Date Time Temp Pulse Resp B/P (MAP) Pulse Ox O2 Delivery O2 Flow Rate FiO2 11/19/18 08:41 85 137/67 11/19/18 08:15 Nasal Cannula 2.5 11/19/18 07:57 94 11/19/18 07:57 98.8 20 98.8 Intake and Output 11/19/18 07:00 Intake Total 100 ml Output Total 450 ml Balance -350 ml Intake Oral 100 ml Output Urine Total 450 ml # Voids 1 Physical Exam Abdomen: Soft Heart: Regular rate, Normal S1, Normal S2 Extremities: No edema General: Alert HEENT: Atraumatic Lungs: Clear to auscultation Neuro: Normal speech Psych/Mental Status: Mental status NL Skin: No rashes Assessment Assessment Problems1. Slvpf-fr-[id number] hypoxic respiratory failure. improved. on oxygen 3LNC 2. Right middle lobe lung mass, suspicious for lung cancer. 3. Acute exacerbation of chronic obstructive pulmonary disease. 4. Hypertension. 5. Restless leg syndrome. 6. Gastroesophageal reflux disease. 7. Hyperglycemia,steroid induced Medical Problems: (1) Acute respiratory distress Status: Acute Plan Plan of Care prednisone taper zithromax out patient PET scan per dr.khan zuniga today Comment Review of Relevant I have reviewed the following items anette (where applicable) has been applied. Labs Laboratory Tests Test 11/17/18 11:45 11/17/18 17:07 11/17/18 21:18 11/18/18 04:40 Glucose (Fingerstick) 183 mg/dL (70-99) 310 mg/dL (70-99) 120 mg/dL (70-99) Hemoglobin A1c 5.6 % (4.8-5.6) Test 11/18/18 08:21 11/18/18 11:17 11/18/18 16:56 11/19/18 03:25 Glucose (Fingerstick) 98 mg/dL (70-99) 149 mg/dL (70-99) 258 mg/dL (70-99) White Blood Count 13.2 x10^3/uL (4.0-11.0) Red Blood Count 3.84 x10^6/uL (3.50-5.40) Hemoglobin 12.0 g/dL (12.0-15.5) Hematocrit 37.1 % (36.0-47.0) Mean Corpuscular Volume 97 fL (79-100) Mean Corpuscular Hemoglobin 31 pg (25-35) Mean Corpuscular Hemoglobin Concent 32 g/dL (31-37) Red Cell Distribution Width 16.1 % (11.5-14.5) Platelet Count 172 x10^3/uL (140-400) Neutrophils (%) (Auto) 94 % (31-73) Lymphocytes (%) (Auto) 4 % (24-48) Monocytes (%) (Auto) 2 % (0-9) Eosinophils (%) (Auto) 0 % (0-3) Basophils (%) (Auto) 0 % (0-3) Neutrophils # (Auto) 12.4 x10^3uL (1.8-7.7) Lymphocytes # (Auto) 0.6 x10^3/uL (1.0-4.8) Monocytes # (Auto) 0.2 x10^3/uL (0.0-1.1) Eosinophils # (Auto) 0.0 x10^3/uL (0.0-0.7) Basophils # (Auto) 0.0 x10^3/uL (0.0-0.2) Segmented Neutrophils % 93 % (35-66) Band Neutrophils % 1 % (0-9) Lymphocytes % 5 % (24-48) Monocytes % 1 % (0-10) Platelet Estimate Adequate (ADEQUATE) Sodium Level 141 mmol/L (136-145) Potassium Level 4.8 mmol/L (3.5-5.1) Chloride Level 104 mmol/L (98-107) Carbon Dioxide Level 32 mmol/L (21-32) Anion Gap 5 (6-14) Blood Urea Nitrogen 34 mg/dL (7-20) Creatinine 0.7 mg/dL (0.6-1.0) Estimated GFR (Cockcroft-Gault) 79.5 Glucose Level 161 mg/dL (70-99) Calcium Level 8.8 mg/dL (8.5-10.1) Test 11/19/18 08:03 Glucose (Fingerstick) 105 mg/dL (70-99) Laboratory Tests Test 11/18/18 11:17 11/18/18 16:56 11/19/18 03:25 11/19/18 08:03 Glucose (Fingerstick) 149 mg/dL (70-99) 258 mg/dL (70-99) 105 mg/dL (70-99) White Blood Count 13.2 x10^3/uL (4.0-11.0) Red Blood Count 3.84 x10^6/uL (3.50-5.40) Hemoglobin 12.0 g/dL (12.0-15.5) Hematocrit 37.1 % (36.0-47.0) Mean Corpuscular Volume 97 fL (79-100) Mean Corpuscular Hemoglobin 31 pg (25-35) Mean Corpuscular Hemoglobin Concent 32 g/dL (31-37) Red Cell Distribution Width 16.1 % (11.5-14.5) Platelet Count 172 x10^3/uL (140-400) Neutrophils (%) (Auto) 94 % (31-73) Lymphocytes (%) (Auto) 4 % (24-48) Monocytes (%) (Auto) 2 % (0-9) Eosinophils (%) (Auto) 0 % (0-3) Basophils (%) (Auto) 0 % (0-3) Neutrophils # (Auto) 12.4 x10^3uL (1.8-7.7) Lymphocytes # (Auto) 0.6 x10^3/uL (1.0-4.8) Monocytes # (Auto) 0.2 x10^3/uL (0.0-1.1) Eosinophils # (Auto) 0.0 x10^3/uL (0.0-0.7) Basophils # (Auto) 0.0 x10^3/uL (0.0-0.2) Segmented Neutrophils % 93 % (35-66) Band Neutrophils % 1 % (0-9) Lymphocytes % 5 % (24-48) Monocytes % 1 % (0-10) Platelet Estimate Adequate (ADEQUATE) Sodium Level 141 mmol/L (136-145) Potassium Level 4.8 mmol/L (3.5-5.1) Chloride Level 104 mmol/L (98-107) Carbon Dioxide Level 32 mmol/L (21-32) Anion Gap 5 (6-14) Blood Urea Nitrogen 34 mg/dL (7-20) Creatinine 0.7 mg/dL (0.6-1.0) Estimated GFR (Cockcroft-Gault) 79.5 Glucose Level 161 mg/dL (70-99) Calcium Level 8.8 mg/dL (8.5-10.1) Microbiology 11/16/18 Blood Culture - Preliminary, Resulted NO GROWTH AFTER 2 DAYS Medications Current Medications Albuterol/ Ipratropium (Duoneb) 3 ml 1X ONCE NEB Last administered on 11/16/18at 17:00; Start 11/16/18 at 16:45; Stop 11/16/18 at 16:46; Status DC Methylprednisolone Sodium Succinate (SOLU-Medrol 125MG VIAL) 125 mg 1X ONCE IV Last administered on 11/16/18at 17:39; Start 11/16/18 at 16:45; Stop 11/16/18 at 16:46; Status DC Ceftriaxone Sodium (Rocephin) 1 gm 1X ONCE IVP Last administered on 11/16/18at 17:39; Start 11/16/18 at 17:45; Stop 11/16/18 at 17:46; Status DC Azithromycin 250 ml @ 250 mls/hr 1X ONCE IV Last administered on 11/16/18at 17:40; Start 11/16/18 at 17:45; Stop 11/16/18 at 18:44; Status DC Sodium Chloride 1,000 ml @ 500 mls/hr 1X ONCE IV Last administered on 11/16/18at 17:39; Start 11/16/18 at 17:45; Stop 11/16/18 at 19:44; Status DC Sodium Chloride 1,000 ml @ 100 mls/hr Q10H IV Last administered on 11/17/18at 10:01; Start 11/16/18 at 17:48; Stop 11/17/18 at 13:10; Status DC Albuterol/ Ipratropium (Duoneb) 3 ml RTQID NEB ; Start 11/16/18 at 20:00; Stop 11/17/18 at 09:49; Status DC Methylprednisolone Sodium Succinate (SOLU-Medrol 125MG VIAL) 62.5 mg Q8HRS IV Last administered on 11/17/18at 05:52; Start 11/16/18 at 22:00; Stop 11/17/18 at 06:01; Status DC Acetaminophen/ Hydrocodone Bitart (Lortab 5/325) 2 tab 1X ONCE PO Last administered on 11/16/18at 20:43; Start 11/16/18 at 19:30; Stop 11/16/18 at 19:31; Status DC Albuterol Sulfate (Ventolin Neb Soln) 2.5 mg PRN Q4HRS PRN NEB SHORTNESS OF BREATH; Start 11/16/18 at 20:15; Stop 11/18/18 at 10:10; Status DC Acetaminophen (Tylenol) 650 mg PRN Q6HRS PRN PO MILD PAIN / TEMP; Start 11/16/18 at 20:15 Insulin Human Lispro (HumaLOG) 0-6 UNITS TIDWMEALS SQ Last administered on 11/18/18 17:18; Start 11/16/18 at 21:00 Dextrose (Dextrose 50%-Water Syringe) 12.5 gm PRN Q15MIN PRN IV SEE COMMENTS; Start 11/16/18 at 20:15 Amlodipine Besylate (Norvasc) 5 mg DAILY PO Last administered on 11/19/18at 08:41; Start 11/17/18 at 09:00 Acetaminophen/ Hydrocodone Bitart (Lortab 7.5/325) 1 tab PRN Q4HRS PRN PO MODE RATE - SEVERE PAIN Last administered on 11/19/18 08:41; Start 11/16/18 at 20:30 Losartan Potassium (Cozaar) 50 mg DAILY PO Last administered on 11/19/18 08:41; Start 11/17/18 at 09:00 Famotidine (Pepcid) 20 mg QHS PO ; Start 11/16/18 at 21:00; Status Cancel Pantoprazole Sodium (Protonix) 40 mg DAILYAC PO Last administered on 11/19/18at 08:41; Start 11/17/18 at 07:30 Ropinirole HCl (Requip) 1 mg DAILYWSUP PO ; Start 11/17/18 at 17:00 Ropinirole HCl (Requip) 2 mg QHS PO Last administered on 11/18/18at 21:13; Start 11/16/18 at 21:00 Levalbuterol HCl (Xopenex) 1.25 mg TID NEB Last administered on 11/19/18at 07:55; Start 11/17/18 at 10:00 Methylprednisolone Sodium Succinate (SOLU-Medrol 40MG VIAL) 40 mg Q12HR IV Last administered on 11/19/18 08:40; Start 11/17/18 at 11:00 Ceftriaxone Sodium (Rocephin) 1 gm Q24H IVP Last administered on 11/17/18 20:46; Start 11/17/18 at 18:00; Stop 11/18/18 at 10:10; Status DC Azithromycin (Zithromax) 250 mg Q24H PO Last administered on 11/18/18at 18:21; Start 11/17/18 at 18:00 Guaifenesin (Mucinex) 600 mg BID PO Last administered on 11/19/18 08:41; Start 11/17/18 at 11:00 Ipratropium [place] (Atrovent) 0.5 mg RTQID NEB ; Start 11/17/18 at 12:00; Stop 11/17/18 at 23:28; Status DC Lactobacillus Rhamnosus (Culturelle) 1 cap BID PO Last administered on 11/19/18 08:42; Start 11/17/18 at 21:00 Al Hydroxide/Mg Hydroxide (Mylanta Plus Xs) 30 ml PRN Q4HRS PRN PO HEARTBURN / GAS Last administered on 11/19/18 08:46; Start 11/17/18 at 21:15 Active Scripts Active Prednisone 20 Mg Tablet 40 Mg PO DAILY 5 Days Reported Hydrocodone-Apap 7.5-325 (Hydrocodone Bit/Acetaminophen) 1 Tab Tablet 1 Tab PO PRN Q4HRS PRN Ropinirole Hcl 2 Mg Tablet 2 Mg PO HS Amlodipine Besylate 5 Mg Tablet 5 Mg PO DAILY Ropinirole Hcl 1 Mg Tablet 1 Mg PO DAILYWSUP Duoneb 0.5-3(2.5) Mg/3 Ml (Albuterol/Ipratropium) 3 Ml Ampul.neb 1 INH PRN Q4- 6HRS PRN Losartan Potassium 50 Mg Tablet 50 Mg PO DAILY Prilosec Otc (Omeprazole Magnesium) 20 Mg Tablet. 1 Tab PO DAILY Famotidine 40 Mg Tablet 40 Mg PO HS Vitals/I & O Vital Sign - Last 24 Hours 11/18/18 11/18/18 11/18/18 11/18/18 11:00 13:05 13:21 14:08 Temp 98.3 98.3 Pulse 84 Resp 18 B/P (MAP) 116/66 (83) Pulse Ox 93 93 94 O2 Delivery Nasal Cannula Nasal Cannula Nasal Cannula O2 Flow Rate 4.0 4.0 4.0 4.0 11/18/18 11/18/18 11/18/18 11/18/18 15:00 19:30 19:49 20:00 Temp 98.2 98.1 98.2 98.1 Pulse 108 90 Resp 18 18 B/P (MAP) 121/68 (85) 124/67 (86) Pulse Ox 92 97 97 O2 Delivery Nasal Cannula Nasal Cannula Nasal Cannula Nasal Cannula O2 Flow Rate 4.0 4.0 4.0 4.0 11/18/18 11/18/18 11/18/18 11/19/18 21:13 22:10 23:28 03:00 Temp 98.3 98.3 Resp 16 18 B/P (MAP) 121/63 (82) Pulse Ox 3 97 O2 Delivery Nasal Cannula Nasal Cannula Nasal Cannula O2 Flow Rate 4.0 4.0 11/19/18 11/19/18 11/19/18 11/19/18 07:57 07:57 08:15 08:41 Temp 98.8 98.8 Pulse 85 85 Resp 20 B/P (MAP) 137/67 (90) 137/67 Pulse Ox 97 94 O2 Delivery Nasal Cannula Nasal Cannula Nasal Cannula O2 Flow Rate 2.5 2.5 2.5 11/19/18 08:41 Pulse 85 B/P (MAP) 137/67 Intake and Output 11/18/18 11/18/18 11/19/18 15:00 23:00 07:00 Intake Total 100 ml Output Total 450 ml Balance 100 ml -450 ml HIPOLITO SCHAFRE MD November 19, 2018 10:28
[2018-11-19] MEDS ORDERED: AZIT250T6 PO (10:33)
--- NOTE | 2018-11-19 10:34 | DISCH ---
DISCHARGE INSTRUCTIONS Condition on Discharge Condition on Discharge: Stable Activity After Discharge Activity Instructions for Disc: Resume previous activity Exercise Instruction after Dis: Progress as tolerated Weight Bearing Status after Di: As tolerated Diet after Discharge Diet after Discharge: Regular Diet Texture: Regular Contacting the DRFrancisco after DC Call your doctor for: If your condition worsens Follow-Up Follow up with: dr. garay next week Follow Up With: dr. hilton in 2 to 3 weeks. out patient PET scan per dr. hilton Treatment/Equipment after DC Adaptive Equipment Issued: HIPOLITO Acuña MD November 19, 2018 10:34
--- NOTE | 2018-11-19 10:38 | PDOC ---
Provider Note Provider Note discharge summary dictated # [id number] HIPOLITO SCHAFER MD November 19, 2018 10:38
[2018-11-19 11:46] VITALS: BP 122/71
--- NOTE | 2018-11-19 12:46 | NUR ---
SW following pt. Discussed with Pt and daughter regarding their concern about needing help with bathing. SW discussed HH OT can assist with Bathing and teach them how to safely do it at home. Pt and daughter not interested with HH at this time and stated they will follow up with PCP if they feel like they need HH after dc. Pt already reported she has home 02. RN notified.
--- NOTE | 2018-11-19 13:09 | PDOC ---
PULMONARY PROGRESS NOTES Subjective no soa Vitals Vital Signs Date Time Temp Pulse Resp B/P (MAP) Pulse Ox O2 Delivery O2 Flow Rate FiO2 11/19/18 12:02 Nasal Cannula 2.5 11/19/18 11:46 98.5 80 20 122/71 (88) 95 98.5 General: Alert, No acute distress Lungs: Other (decrease bases) Cardiovascular: S1 Abdomen: Soft Neuro Exam: Alert Extremities: No Edema Skin: Warm Labs Laboratory Tests Test 11/17/18 17:07 11/17/18 21:18 11/18/18 04:40 11/18/18 08:21 Glucose (Fingerstick) 310 mg/dL (70-99) 120 mg/dL (70-99) 98 mg/dL (70-99) Hemoglobin A1c 5.6 % (4.8-5.6) Test 11/18/18 11:17 11/18/18 16:56 11/19/18 03:25 11/19/18 08:03 Glucose (Fingerstick) 149 mg/dL (70-99) 258 mg/dL (70-99) 105 mg/dL (70-99) White Blood Count 13.2 x10^3/uL (4.0-11.0) Red Blood Count 3.84 x10^6/uL (3.50-5.40) Hemoglobin 12.0 g/dL (12.0-15.5) Hematocrit 37.1 % (36.0-47.0) Mean Corpuscular Volume 97 fL (79-100) Mean Corpuscular Hemoglobin 31 pg (25-35) Mean Corpuscular Hemoglobin Concent 32 g/dL (31-37) Red Cell Distribution Width 16.1 % (11.5-14.5) Platelet Count 172 x10^3/uL (140-400) Neutrophils (%) (Auto) 94 % (31-73) Lymphocytes (%) (Auto) 4 % (24-48) Monocytes (%) (Auto) 2 % (0-9) Eosinophils (%) (Auto) 0 % (0-3) Basophils (%) (Auto) 0 % (0-3) Neutrophils # (Auto) 12.4 x10^3uL (1.8-7.7) Lymphocytes # (Auto) 0.6 x10^3/uL (1.0-4.8) Monocytes # (Auto) 0.2 x10^3/uL (0.0-1.1) Eosinophils # (Auto) 0.0 x10^3/uL (0.0-0.7) Basophils # (Auto) 0.0 x10^3/uL (0.0-0.2) Segmented Neutrophils % 93 % (35-66) Band Neutrophils % 1 % (0-9) Lymphocytes % 5 % (24-48) Monocytes % 1 % (0-10) Platelet Estimate Adequate (ADEQUATE) Sodium Level 141 mmol/L (136-145) Potassium Level 4.8 mmol/L (3.5-5.1) Chloride Level 104 mmol/L (98-107) Carbon Dioxide Level 32 mmol/L (21-32) Anion Gap 5 (6-14) Blood Urea Nitrogen 34 mg/dL (7-20) Creatinine 0.7 mg/dL (0.6-1.0) Estimated GFR (Cockcroft-Gault) 79.5 Glucose Level 161 mg/dL (70-99) Calcium Level 8.8 mg/dL (8.5-10.1) Test 11/19/18 11:06 Glucose (Fingerstick) 124 mg/dL (70-99) Laboratory Tests Test 11/18/18 16:56 11/19/18 03:25 11/19/18 08:03 11/19/18 11:06 Glucose (Fingerstick) 258 mg/dL (70-99) 105 mg/dL (70-99) 124 mg/dL (70-99) White Blood Count 13.2 x10^3/uL (4.0-11.0) Red Blood Count 3.84 x10^6/uL (3.50-5.40) Hemoglobin 12.0 g/dL (12.0-15.5) Hematocrit 37.1 % (36.0-47.0) Mean Corpuscular Volume 97 fL (79-100) Mean Corpuscular Hemoglobin 31 pg (25-35) Mean Corpuscular Hemoglobin Concent 32 g/dL (31-37) Red Cell Distribution Width 16.1 % (11.5-14.5) Platelet Count 172 x10^3/uL (140-400) Neutrophils (%) (Auto) 94 % (31-73) Lymphocytes (%) (Auto) 4 % (24-48) Monocytes (%) (Auto) 2 % (0-9) Eosinophils (%) (Auto) 0 % (0-3) Basophils (%) (Auto) 0 % (0-3) Neutrophils # (Auto) 12.4 x10^3uL (1.8-7.7) Lymphocytes # (Auto) 0.6 x10^3/uL (1.0-4.8) Monocytes # (Auto) 0.2 x10^3/uL (0.0-1.1) Eosinophils # (Auto) 0.0 x10^3/uL (0.0-0.7) Basophils # (Auto) 0.0 x10^3/uL (0.0-0.2) Segmented Neutrophils % 93 % (35-66) Band Neutrophils % 1 % (0-9) Lymphocytes % 5 % (24-48) Monocytes % 1 % (0-10) Platelet Estimate Adequate (ADEQUATE) Sodium Level 141 mmol/L (136-145) Potassium Level 4.8 mmol/L (3.5-5.1) Chloride Level 104 mmol/L (98-107) Carbon Dioxide Level 32 mmol/L (21-32) Anion Gap 5 (6-14) Blood Urea Nitrogen 34 mg/dL (7-20) Creatinine 0.7 mg/dL (0.6-1.0) Estimated GFR (Cockcroft-Gault) 79.5 Glucose Level 161 mg/dL (70-99) Calcium Level 8.8 mg/dL (8.5-10.1) Medications Active Scripts Medications Dose Route/Sig Max Daily Dose Days Date Category Prednisone 20 Mg Tablet 40 Mg PO DAILY 5 10/09/18 Rx Hydrocodone-Apap 7.5-325 (Hydrocodone Bit/Acetaminophen) 1 Tab Tablet 1 Tab PO PRN Q4HRS PRN 10/05/18 Reported Ropinirole Hcl 2 Mg Tablet 2 Mg PO HS 10/05/18 Reported Amlodipine Besylate 5 Mg Tablet 5 Mg PO DAILY 10/05/18 Reported Ropinirole Hcl 1 Mg Tablet 1 Mg PO DAILYWSUP 10/05/18 Reported Duoneb 0.5-3(2.5) Mg/3 Ml (Albuterol/Ipratropium) 3 Ml Ampul.neb 1 INH PRN Q4-6HRS PRN 10/05/18 Reported Losartan Potassium 50 Mg Tablet 50 Mg PO DAILY 10/05/18 Reported Prilosec Otc (Omeprazole Magnesium) 20 Mg Tablet. 1 Tab PO DAILY 05/16/14 Reported Famotidine 40 Mg Tablet 40 Mg PO HS 05/16/14 Reported Impression . 1. Raimt-hf-hxaaewo hypoxic respiratory failure secondary to acute exacerbation of chronic obstructive pulmonary disease. 2. Persistently abnormal CT chest with abnormal soft tissue density in the right middle lobe, which has not changed since 10/05/2018 CT chest. It measures 3.8 cm. Likely represents a malignancy. She is at high risk for bronchoscopy. 3. 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 4. Overall pulmonary infiltrates have improved since scan from October and suggesting resolving pneumonia. Plan . 1. Discussed with the patient and the son. I have also discussed advanced directives. she plans to quit cigarettes. She agrees to be a DNR 2. No intubation, no chest compression. 3. I would recommend having a PET scan as an outpatient to confirm this as a neoplastic density in the right middle lobe. She would be a high risk candidate for bronchoscopy looking for mucous plug. Even if malignancy is diagnosed, she is not an optimum candidate for any form of treatment. Conservative followup would be reasonable, but I would recommend doing a PET scan as an outpatient. 4. Continue bronchodilators. 5. Continue oxygen and gradual wean to baseline of 2-3 liters. 6. Discussed with son, RN and patient. 7. dc plans per DR SCHAFER f/u given with DR Valera for December 03 with PET first VASYL LAM MD November 19, 2018 13:09
--- NOTE | 2018-11-19 13:28 | DS ---
DATE OF DISCHARGE: 11/19/2018 CONSULTANTS: Dr. Talbot. FINAL DIAGNOSES:1. 1. Acute exacerbation of chronic obstructive pulmonary disease secondary to acute bronchitis. 2. Acute bronchitis. 3. Right middle lobe lung mass. 4. Acute on chronic hypoxic respiratory failure. 5. Hypertension. 6. Restless leg syndrome. 7. Gastroesophageal reflux disease. 8. Steroid-induced hyperglycemia. HOSPITAL COURSE: The patient is an 83-year-old white female with history of chronic hypoxic respiratory failure, maintained on oxygen 3 liters per nasal cannula. Uses nebulizer treatment p.r.n. She has chronic obstructive pulmonary disease and noted some intermittent shortness of breath. She was eating some crackers, became short of breath, but did not aspirate it. She has had some cough. Denies any fever or chills. CAT scan of the chest in October showed bilateral pneumonia and she was admitted and treated with antibiotics at that time. She had a soft tissue density in the right middle lobe and a repeat CAT scan of the chest done as an outpatient 11/13/2018, showed she had a 3.8 cm right middle lobe lung density suspicious for lung cancer. The patient is a do not resuscitate. Dr. Talbot saw the patient in consultation and noted her do not resuscitate status, and recommended an outpatient PET scan. She was treated with IV Solu-Medrol and oxygen, nebulizer treatments and IV Rocephin and oral Zithromax. She had some diarrhea, which improved off the Rocephin and she will be finishing her Zithromax tomorrow. Shortness of breath improved. She said she had some black stools with the diarrhea. LABS: Her BUN was 34, creatinine 0.7. Her hemoglobin is unchanged. White count was 13.2 due to the steroids. Hemoglobin was 12. A GI consult was ordered to Dr. Way, but I do not see the consult, again, hemoglobin has not dropped and I doubt she had a GI bleed. She is anxious to go home and she will be dismissed to home with Zithromax 250 mg 1 tablet tomorrow, which will finish that, prednisone 40 mg every day for 2 days, 30 mg for 2 days, 20 mg daily for 2 days, 10 mg daily for 2 days and stop the prednisone. She will be dismissed on amlodipine 5 mg every day, losartan 50 mg every day, albuterol nebulizer treatments q.i.d. p.r.n., famotidine 40 mg at bedtime, Requip 1 mg at 5:00 p.m. and 2 mg at bedtime, Spiriva 1 puff every day, Prilosec xocz-rnd-bbiouzo 20 mg every day and Ventolin inhaler p.r.n. She only has an appointment to see Dr. Jesus in the office 11/25/2018. She will follow up with Dr. Talbot in 2-[address] Talbot will be ordering outpatient PET scan. She wishes to be a do not resuscitate. HIPOLITO JESUS MD DR: ASAEL/kaveh JOB#: [id number] / [id number]
[2018-11-20] MEDS ORDERED: predniSONE 20 MG TABLET PO SCH (09:00)
== END 2018-11-19 13:00 | disposition home or self-care (01) | DRG 189 ==
LOC: ER 16:35 → 6 SOUTH 18:18
PROVIDERS: ADMIT Internal Medicine; ATTEND Internal Medicine
DX: J96.21 Acute and chronic respiratory failure with hypoxia (principal); J44.1 Chronic obstructive pulmonary disease with (acute) exacerbation; J44.0 Chronic obstructive pulmonary disease with (acute) lower respiratory infection; Z66 Do not resuscitate; J20.9 Acute bronchitis, unspecified; M17.10 Unilateral primary osteoarthritis, unspecified knee; K21.9 Gastro-esophageal reflux disease without esophagitis; M81.0 Age-related osteoporosis without current pathological fracture; L40.50 Arthropathic psoriasis, unspecified; G25.81 Restless legs syndrome; N32.81 Overactive bladder; F17.210 Nicotine dependence, cigarettes, uncomplicated; I10 Essential (primary) hypertension; T38.0X5A Adverse effect of glucocorticoids and synthetic analogues, initial encounter; Y92.89 Other specified places as the place of occurrence of the external cause; Z93.3 Colostomy status; Z87.81 Personal history of (healed) traumatic fracture
CPT/HCPCS: 36415; 71045; 71250; 80048; 80053; 82550; 82962; 83036; 83605; 83880; 84484; 85007; 85025; 87040; 93005; 94640; 94760; 96365; 96375; 99406; J0456; J0696; J1815; J2920; J2930; J7030; J7620; Q0144; 97116; 97530; 99285-25

== ENCOUNTER → 2018-12-17 | Outpatient (CLI) | payer BC ==
[2018-11-19 11:46] VITALS: BP 122/71
[~2018-12-17] MED LIST changes: +AZIT250T6 PO
--- NOTE | 2018-12-17 10:54 | RAD ---
FDG tumor localization scan, PET/CT, 12/17/2018: HISTORY: Lung mass Following IV injection of 14.2 mCi of 18 F-FDG, imaging was performed from the skull base to the proximal thighs. The noncontrast CT component was performed for attenuation correction and anatomic localization purposes rather than for primary diagnosis. The patient's blood glucose level the time of injection was 126 MG/DL. Physiologic activity is evident in the neck. No hypermetabolic neck lesion is seen. The patient's known mass in the medial aspect of the right middle lobe is hypermetabolic with a maximum SUV of 5.5. It appears to have increased in size since the 11/13/2018 CT study, now measuring 4.6 cm in greatest dimension. There is increasing atelectasis and consolidation in the right lower lobe as well as an enlarging small right pleural effusion. Minimal low level FDG uptake is present at the right hilum with a maximum SUV of 2.8. This is only slightly greater than the mediastinal background. There is similar low level FDG uptake in the right paratracheal region. There is a 13 mm nodule in the right epicardial fat along the anterior aspect of the right hemidiaphragm. It is mildly hypermetabolic with a maximum SUV of 2.7. Normal GI tract and urinary tract activity is present in the abdomen and pelvis. No hypermetabolic abdominal or pelvic lesion is seen. Incidental CT findings include the presence of a moderate-sized hiatal hernia. Mildly increased FDG uptake in the esophagus may be due to associated reflux. There is emphysema with scattered parenchymal scars. Moderate coronary artery calcifications are present. IMPRESSION: 1. Hypermetabolic right middle lobe mass suggesting a primary lung malignancy. 2. Low level FDG uptake at the right hilum and in the right paratracheal region may be inflammatory or metastatic. 3. Mildly hypermetabolic nodule in the right epicardial fat adjacent to the diaphragm, suspicious for a metastasis. 4. Enlarging right pleural effusion with worsening right lower lobe atelectasis/consolidation.
== END | disposition home or self-care (01) ==
LOC: PETSC 07:56
PROVIDERS: ATTEND Internal Medicine Pulmonary Disease
DX: K44.9 Diaphragmatic hernia without obstruction or gangrene (principal); J90 Pleural effusion, not elsewhere classified; I25.10 Atherosclerotic heart disease of native coronary artery without angina pectoris; R91.1 Solitary pulmonary nodule; R91.8 Other nonspecific abnormal finding of lung field
CPT/HCPCS: 78815; A9552

== ENCOUNTER 2019-01-05 06:38 | Inpatient (IN) | payer BC ==
[~2019-01-05] VITALS: Ht 152.4 cm; Wt 51.7 kg
[2019-01-05] VITALS (22 sets, daily range): BP systolic 113–193; BP diastolic 57–99
[2019-01-05 07:29] LABS: BASO # 0.1 x10^3/uL (0.0-0.2); BASO % 1 % (0-3); EOS # 0.1 x10^3/uL (0.0-0.7); EOS % 1 % (0-3); HEMATOCRIT 39.5 % (36.0-47.0); HEMOGLOBIN 13.2 g/dL (12.0-15.5); LYMPH # 1.2 x10^3/uL (1.0-4.8); LYMPH % 15 % (24-48); MEAN CORPUSCULAR HEMOGLOBIN 31 pg (25-35); MEAN CORPUSCULAR HGB CONC 33 g/dL (31-37); MEAN CORPUSCULAR VOLUME 93 fL (79-100); MONO # 0.6 x10^3/uL (0.0-1.1); MONO % 8 % (0-9); NEUT % 75 % (31-73); PLATELET COUNT 252 x10^3/uL (140-400); RED BLOOD COUNT 4.24 x10^6/uL (3.50-5.40); RED CELL DISTRIBUTION WIDTH 16.1 % (11.5-14.5)
[2019-01-05 07:37] LABS: PROTHROMBIN TIME PATIENT 13.1 SEC (11.7-14.0)
[2019-01-05] MEDS ORDERED: LIDOCAINE WITH 8.4% SOD BICARB 3 ML DISP.SYRIN. ONE (07:48)
[2019-01-05] MEDS ORDERED: MIDAZOLAM HCL/PF 2 MG/2 ML VIAL. ONE (07:55)
[2019-01-05] MEDS ORDERED: FLUMAZENIL 0.5 MG/5 ML VIAL. IV ONE (07:55)
[2019-01-05] MEDS ORDERED: NALOXONE 0.4 MG/ML VIAL. ONE (07:55)
[2019-01-05] MEDS ORDERED: fentaNYL PF VIAL 100 MCG/2 ML VIAL ONE (07:55)
[2019-01-05] MEDS ORDERED: LIDOCAINE WITH 8.4% SOD BICARB 3 ML DISP.SYRIN. IJ ONE (08:00)
[2019-01-05] MEDS ORDERED: MIDAZOLAM HCL/PF 2 MG/2 ML VIAL. IV ONE (08:00)
[2019-01-05] MEDS ORDERED: fentaNYL PF VIAL 100 MCG/2 ML VIAL IV ONE (08:00)
--- NOTE | 2019-01-05 09:06 | NUR ---
Nurse flushed IV in right forearm and it didn't work. Torrey from Outpatient called to assist with another IV placement.
--- NOTE | 2019-01-05 10:19 | RAD ---
CHEST AP ONLY Clinical Indication: New chest tube, chest discomfort. Comparison: CT guided biopsy, earlier same day.. Findings: There is a small caliber inferior right chest tube. Atherosclerotic thoracic aorta. Moderate-sized hiatal hernia. The cardiac size is normal. There is masslike opacity in the medial right lung base. There may be minimal residual pneumothorax inferior right lateral. Small right pleural effusion. No acute bone abnormality. Skinfold overlies the lateral inferior left hemithorax. IMPRESSION: 1. Small caliber right chest tube. Right pneumothorax is nearly resolved. 2. Unchanged medial right basilar opacity. 3. Small right pleural effusion. Electronically signed by: Puneet Schmitz MD (01/05/2019 10:16 AM) [id number]
[2019-01-05] MEDS ORDERED: HYDROcodone/APAP 5/325MG 1 TAB TABLET PO PRN (10:45)
[2019-01-05] MEDS: KETOROLAC 15 MG/ML VIAL. IV PRN ×2 (10:50→18:27)
--- NOTE | 2019-01-05 11:00 | PDOC ---
Provider Note Provider Note IR NOTE 83 year old patient with COPD, O2 dependent on 3 L NC at home. Found to have PET avid RLL mass. Post biopsy of RLL mass, patient developed significant R pneumothorax with respiratory distress. Chest tube placed, with near total resolution of pneumothorax on -20 cm H20. Some persistent discomfort. Patient admitted. Pulmonary consult requested. DEJON VEGA MD Jan 05, 2019 11:00
[2019-01-05] MEDS ORDERED: ACETAMINOPHEN 325 MG TABLET. PO PRN ×2 (11:45)
[2019-01-05] MEDS ORDERED: MAGNESIUM HYDROXIDE 2,400 MG/30 ML ORAL.SUSP. PO PRN (11:45)
--- NOTE | 2019-01-05 11:50 | PDOC ---
Provider Note Provider Note history and physical dictated # [id number] HIPOLITO SCHAFER MD Jan 05, 2019 11:50
[2019-01-05] MEDS ORDERED: amLODIPine BESYLATE 5 MG TABLET PO SCH (12:00)
[2019-01-05] MEDS ORDERED: LOSARTAN POTASSIUM 50 MG TABLET. PO SCH (12:00)
[2019-01-05 12:16] LABS: BASO # 0.1 x10^3/uL (0.0-0.2); BASO % 1 % (0-3); EOS % 0 % (0-3); HEMATOCRIT 37.8 % (36.0-47.0); HEMOGLOBIN 12.4 g/dL (12.0-15.5); LYMPH # 0.9 x10^3/uL (1.0-4.8); LYMPH % 13 % (24-48); MEAN CORPUSCULAR HEMOGLOBIN 31 pg (25-35); MEAN CORPUSCULAR HGB CONC 33 g/dL (31-37); MEAN CORPUSCULAR VOLUME 93 fL (79-100); MONO # 0.4 x10^3/uL (0.0-1.1); MONO % 5 % (0-9); NEUT % 81 % (31-73); PLATELET COUNT 238 x10^3/uL (140-400); RED BLOOD COUNT 4.08 x10^6/uL (3.50-5.40); RED CELL DISTRIBUTION WIDTH 16.1 % (11.5-14.5); WHITE BLOOD COUNT 7.3 x10^3/uL (4.0-11.0)
[2019-01-05] MEDS: amLODIPine BESYLATE 5 MG TABLET PO SCH (12:25)
[2019-01-05] MEDS: LOSARTAN POTASSIUM 50 MG TABLET. PO SCH (12:25)
[2019-01-05] MEDS: DOCUSATE SODIUM 100 MG CAPSULE. PO SCH (12:26)
--- NOTE | 2019-01-05 12:31 | RAD ---
01/05/[address]-guided biopsy, right middle lobe mass 2. Placement of right-sided chest tube Indication: Right middle lobe mass concerning for primary lung cancer Discussion The procedure was explained in its entirety to the patient or the patients designated kiosk sales representative by a member of the treatment team, including a discussion of the risks, benefits and commonly accepted alternatives to the procedure, as well as the expected consequences of no therapy whatsoever. Discussion of the risks included, but was not limited to, those that are most frequent and those that are rare but possibly severe or life-threatening, as well as the possibility of unforeseen complications. The patient was brought to the CT scanner and placed in the supine position. A timeout procedure was performed. The right chest was prepped and draped using sterile barrier technique. CT imaging was obtained redemonstrating a right middle lobe mass. 1% lidocaine was administered for local anesthesia. Under intermittent CT guidance a 17-gauge needle was advanced into the mass. 18-gauge core biopsy samples were obtained. The needle was removed. CT imaging was repeated demonstrating moderate, but relatively rapidly appearing right pneumothorax. 5 Mohawk sheathed needle was advanced into the pleural space under intermittent CT guidance. Guidewire was advanced through the sheath into the pleural space, over which, following dilatation and 8 Mohawk pigtail catheter was placed. The catheter was connected to a Pleur-evac device at -20 cm continuous section. Repeat imaging demonstrates near total resolution of the previously seen pneumothorax. The catheter was secured in place. Sterile dressings were applied. The procedures performed under conscious sedation including continuous cardiopulmonary monitoring via dedicated sedation nurse. Ecap-fn-tyln sedation time: 1 hour Impression: 1. CT-guided biopsy right middle lobe mass 2. Placement of a right thoracostomy tube secondary to iatrogenic post biopsy pneumothorax PQRS Compliance Statement: One or more of the following individualized dose reduction techniques were utilized for this examination: 1. Automated exposure control 2. Adjustment of the mA and/or kV according to patient size 3. Use of iterative reconstruction technique
[2019-01-05 12:52] LABS: ALBUMIN 3.2 g/dL (3.4-5.0); ALBUMIN/GLOBULIN RATIO 1.1 (1.0-1.7); CALCIUM 9.1 mg/dL (8.5-10.1); CREATININE 0.6 mg/dL (0.6-1.0); POTASSIUM 4.1 mmol/L (3.5-5.1); TOTAL BILIRUBIN 0.5 mg/dL (0.2-1.0); TOTAL PROTEIN 6.1 g/dL (6.4-8.2)
[2019-01-05 13:36] LABS: BASE EXCESS ABG 1 mmol/L (-3-3); HCO3 ABG 27 mmol/L (21-28); PCO2 ABG 46 mmHg (35-46); PO2 ABG 71 mmHg (65-108); SAT O2 ABG 93 % (92-99)
[2019-01-05 13:41] LABS: FIO2 ABG 32
--- NOTE | 2019-01-05 14:13 | EKG ---
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
--- NOTE | 2019-01-05 15:02 | PDOC ---
PULMONARY PROGRESS NOTES Vitals Vital Signs Date Time Temp Pulse Resp B/P (MAP) Pulse Ox O2 Delivery O2 Flow Rate FiO2 01/05/19 12:25 105 01/05/19 10:51 98.2 18 181/95 (123) 94 Nasal Cannula 3.0 98.2 General: Alert, No acute distress Lungs: Other Cardiovascular: S1 Abdomen: Soft Extremities: No Edema Labs Laboratory Tests Test 01/05/19 07:15 01/05/19 12:10 01/05/19 13:00 White Blood Count 8.0 x10^3/uL (4.0-11.0) 7.3 x10^3/uL (4.0-11.0) Red Blood Count 4.24 x10^6/uL (3.50-5.40) 4.08 x10^6/uL (3.50-5.40) Hemoglobin 13.2 g/dL (12.0-15.5) 12.4 g/dL (12.0-15.5) Hematocrit 39.5 % (36.0-47.0) 37.8 % (36.0-47.0) Mean Corpuscular Volume 93 fL (79-100) 93 fL (79-100) Mean Corpuscular Hemoglobin 31 pg (25-35) 31 pg (25-35) Mean Corpuscular Hemoglobin Concent 33 g/dL (31-37) 33 g/dL (31-37) Red Cell Distribution Width 16.1 % (11.5-14.5) 16.1 % (11.5-14.5) Platelet Count 252 x10^3/uL (140-400) 238 x10^3/uL (140-400) Neutrophils (%) (Auto) 75 % (31-73) 81 % (31-73) Lymphocytes (%) (Auto) 15 % (24-48) 13 % (24-48) Monocytes (%) (Auto) 8 % (0-9) 5 % (0-9) Eosinophils (%) (Auto) 1 % (0-3) 0 % (0-3) Basophils (%) (Auto) 1 % (0-3) 1 % (0-3) Neutrophils # (Auto) 6.0 x10^3uL (1.8-7.7) 6.0 x10^3uL (1.8-7.7) Lymphocytes # (Auto) 1.2 x10^3/uL (1.0-4.8) 0.9 x10^3/uL (1.0-4.8) Monocytes # (Auto) 0.6 x10^3/uL (0.0-1.1) 0.4 x10^3/uL (0.0-1.1) Eosinophils # (Auto) 0.1 x10^3/uL (0.0-0.7) 0.0 x10^3/uL (0.0-0.7) Basophils # (Auto) 0.1 x10^3/uL (0.0-0.2) 0.1 x10^3/uL (0.0-0.2) Prothrombin Time 13.1 SEC (11.7-14.0) Prothromb Time International Ratio 1.0 (0.8-1.1) Sodium Level 140 mmol/L (136-145) Potassium Level 4.1 mmol/L (3.5-5.1) Chloride Level 102 mmol/L (98-107) Carbon Dioxide Level 30 mmol/L (21-32) Anion Gap 8 (6-14) Blood Urea Nitrogen 12 mg/dL (7-20) Creatinine 0.6 mg/dL (0.6-1.0) Estimated GFR (Cockcroft-Gault) 95.0 BUN/Creatinine Ratio 20 (6-20) Glucose Level 160 mg/dL (70-99) Calcium Level 9.1 mg/dL (8.5-10.1) Total Bilirubin 0.5 mg/dL (0.2-1.0) Aspartate Amino Transf (AST/SGOT) 26 U/L (15-37) Alanine Aminotransferase (ALT/SGPT) 43 U/L (14-59) Alkaline Phosphatase 98 U/L (46-116) Total Protein 6.1 g/dL (6.4-8.2) Albumin 3.2 g/dL (3.4-5.0) Albumin/Globulin Ratio 1.1 (1.0-1.7) O2 Saturation 93 % (92-99) Arterial Blood pH 7.38 (7.35-7.45) Arterial Blood pCO2 at Patient Temp 46 mmHg (35-46) Arterial Blood pO2 at Patient Temp 71 mmHg (65-108) Arterial Blood HCO3 27 mmol/L (21-28) Arterial Blood Base Excess 1 mmol/L (-3-3) FiO2 32 Laboratory Tests Test 01/05/19 07:15 01/05/19 12:10 01/05/19 13:00 White Blood Count 8.0 x10^3/uL (4.0-11.0) 7.3 x10^3/uL (4.0-11.0) Red Blood Count 4.24 x10^6/uL (3.50-5.40) 4.08 x10^6/uL (3.50-5.40) Hemoglobin 13.2 g/dL (12.0-15.5) 12.4 g/dL (12.0-15.5) Hematocrit 39.5 % (36.0-47.0) 37.8 % (36.0-47.0) Mean Corpuscular Volume 93 fL (79-100) 93 fL (79-100) Mean Corpuscular Hemoglobin 31 pg (25-35) 31 pg (25-35) Mean Corpuscular Hemoglobin Concent 33 g/dL (31-37) 33 g/dL (31-37) Red Cell Distribution Width 16.1 % (11.5-14.5) 16.1 % (11.5-14.5) Platelet Count 252 x10^3/uL (140-400) 238 x10^3/uL (140-400) Neutrophils (%) (Auto) 75 % (31-73) 81 % (31-73) Lymphocytes (%) (Auto) 15 % (24-48) 13 % (24-48) Monocytes (%) (Auto) 8 % (0-9) 5 % (0-9) Eosinophils (%) (Auto) 1 % (0-3) 0 % (0-3) Basophils (%) (Auto) 1 % (0-3) 1 % (0-3) Neutrophils # (Auto) 6.0 x10^3uL (1.8-7.7) 6.0 x10^3uL (1.8-7.7) Lymphocytes # (Auto) 1.2 x10^3/uL (1.0-4.8) 0.9 x10^3/uL (1.0-4.8) Monocytes # (Auto) 0.6 x10^3/uL (0.0-1.1) 0.4 x10^3/uL (0.0-1.1) Eosinophils # (Auto) 0.1 x10^3/uL (0.0-0.7) 0.0 x10^3/uL (0.0-0.7) Basophils # (Auto) 0.1 x10^3/uL (0.0-0.2) 0.1 x10^3/uL (0.0-0.2) Prothrombin Time 13.1 SEC (11.7-14.0) Prothromb Time International Ratio 1.0 (0.8-1.1) Sodium Level 140 mmol/L (136-145) Potassium Level 4.1 mmol/L (3.5-5.1) Chloride Level 102 mmol/L (98-107) Carbon Dioxide Level 30 mmol/L (21-32) Anion Gap 8 (6-14) Blood Urea Nitrogen 12 mg/dL (7-20) Creatinine 0.6 mg/dL (0.6-1.0) Estimated GFR (Cockcroft-Gault) 95.0 BUN/Creatinine Ratio 20 (6-20) Glucose Level 160 mg/dL (70-99) Calcium Level 9.1 mg/dL (8.5-10.1) Total Bilirubin 0.5 mg/dL (0.2-1.0) Aspartate Amino Transf (AST/SGOT) 26 U/L (15-37) Alanine Aminotransferase (ALT/SGPT) 43 U/L (14-59) Alkaline Phosphatase 98 U/L (46-116) Total Protein 6.1 g/dL (6.4-8.2) Albumin 3.2 g/dL (3.4-5.0) Albumin/Globulin Ratio 1.1 (1.0-1.7) O2 Saturation 93 % (92-99) Arterial Blood pH 7.38 (7.35-7.45) Arterial Blood pCO2 at Patient Temp 46 mmHg (35-46) Arterial Blood pO2 at Patient Temp 71 mmHg (65-108) Arterial Blood HCO3 27 mmol/L (21-28) Arterial Blood Base Excess 1 mmol/L (-3-3) FiO2 32 Medications Active Scripts Medications Dose Route/Sig Max Daily Dose Days Date Category Hydrocodone-Apap 7.5-325 (Hydrocodone Bit/Acetaminophen) 1 Tab Tablet 1 Tab PO PRN Q4HRS PRN 10/05/18 Reported Ropinirole Hcl 2 Mg Tablet 2 Mg PO HS 10/05/18 Reported Amlodipine Besylate 5 Mg Tablet 5 Mg PO DAILY 10/05/18 Reported Ropinirole Hcl 1 Mg Tablet 1 Mg PO DAILYWSUP 10/05/18 Reported Duoneb 0.5-3(2.5) Mg/3 Ml (Albuterol/Ipratropium) 3 Ml Ampul.neb 1 INH PRN Q4-6HRS PRN 10/05/18 Reported Losartan Potassium 50 Mg Tablet 50 Mg PO DAILY 10/05/18 Reported Prilosec Otc (Omeprazole Magnesium) 20 Mg Tablet. 1 Tab PO DAILY 05/16/14 Reported Impression . NOTE DICTATED FNA NOW WITH PTX EXPECTED PART OF INHERENT RISK OF PROCEDURE WILL NEED TO FOLLOW UP NOW WITH [facility] ON CHEST TUBE JANI ASHTON MD Jan 05, 2019 15:02
[2019-01-05] MEDS: HYDROcodone/APAP 5/325MG 1 TAB TABLET PO PRN ×2 (15:09→21:52)
[2019-01-05] MEDS: rOPINIRole 1 MG TABLET. PO SCH ×2 (15:09→21:02)
--- NOTE | 2019-01-05 15:20 | HP ---
ADMIT DATE: 01/05/2019 LOCATION: She is in room 201. HISTORY OF PRESENT ILLNESS: The patient is an 83-year-old white female with chronic obstructive pulmonary disease and chronic hypoxic respiratory failure, maintained on oxygen 3 liters per nasal cannula continuously at home, who has a history of a right lower lobe lung mass that has been followed. She was hospitalized in 10/2018 with bilateral pneumonia and treated with antibiotics and followup CAT scan showed a repeat density in the right middle lobe of the lungs. She then underwent a PET scan and it was hypermetabolic, leading to the biopsy, which was done today. She had a fine-needle aspiration biopsy of the right lower lobe lung mass today and then she was noted to have a pneumothorax in the right side of the chest, treated with a small chest tube anteriorly on the right side. A followup chest x-ray showed the pneumothorax is essentially resolved. The patient is not short of breath at this time and subsequently admitted to the hospital due to the pneumothorax and placement of a chest tube for further evaluation and treatment. She is complaining of some pain related to the chest tube. ALLERGIES AND INTOLERANCES: INCLUDE PENICILLIN. MEDICATIONS: Include amlodipine 5 mg every day, losartan 50 mg every day, famotidine 40 mg at bedtime, Requip 1 mg at 05:00 p.m. and 2 mg at bedtime, Spiriva 1 puff every day, Prilosec [id number] 20 mg every day and Ventolin inhaler p.r.n. and I think, she has an albuterol nebulizer treatments q.i.d. p.r.n. at home. PAST MEDICAL HISTORY: Past history is significant for chronic obstructive pulmonary disease and she was hospitalized with an acute exacerbation of COPD on 11/19/2018, had acute bronchitis, noted to have a right middle lobe/right lower lobe lung mass at that time. She also has chronic hypoxic respiratory failure, hypertension, restless leg syndrome, gastroesophageal reflux disease and steroid-induced hyperglycemia. She has a history of hemorrhoidectomy, appendectomy, vocal cord nodule removed in 2102, restless leg syndrome and overactive bladder as well as osteoporosis and osteoarthritis of her knee and history of psoriatic osteoarthritis and she is off of the Humira. SOCIAL HISTORY: She smokes about 1 pack per day for at least 64 years, does not drink alcohol. She is and uses a roller walker. FAMILY HISTORY: Noncontributory. REVIEW OF SYSTEMS: GENERAL: She denies any fever, chills or sweats in the last 3 days. CARDIOVASCULAR: She has some chest wall pain related to pneumothorax. PULMONARY: She does have a cough. Not short of breath at present. GASTROINTESTINAL: Bowels are moving okay. ENDOCRINE: No diabetes mellitus. SKIN: No rashes. The rest of the systems reviewed are negative, except as stated in the history of present illness. PHYSICAL EXAMINATION: VITAL SIGNS: Temperature is 98.2 degrees, pulse is regular at 106, respiratory rate 18, blood pressure 181/95 and oxygen saturation 94% on 3 liters per nasal cannula. HEENT: Eyes, gaze is conjugate. Extraocular muscles are intact. Mouth, tongue is midline. There is no yeast. She wears dentures. NECK: No cervical lymphadenopathy or thyroid enlargement. HEART: Reveals an S1, S2. There is no S3 or murmur. LUNGS: Clear with decreased breath sounds bilaterally. ABDOMEN: Soft and nontender. CHEST: Examination of her chest shows that she does have a right anterior small-bore chest tube. EXTREMITIES: Lower extremities without edema. SKIN: No rashes. NEUROLOGICAL EXAMINATION: Reveals no focal weakness of the extremities. No facial asymmetry. LABORATORY DATA: Review of her laboratory test, white count 8.0, hemoglobin 13.2, platelet count 353,000, polys 75 and lymphocytes 15 before her procedure today. INR was 1.0. She did have a chest x-ray done following the lung biopsy and she has a small caliber right chest tube and the right pneumothorax was nearly resolved. She had an unchanged medial right basilar opacity and a small right pleural effusion. Cardiac size was normal. ASSESSMENT: 1. Right-sided pneumothorax following an aspiration needle biopsy of a right lower lobe lung mass and a chest tube has been placed. 2. Right lower lobe lung mass, which is hypermetabolic on PET scan. 3. Chronic obstructive pulmonary disease. 4. Chronic hypoxic respiratory failure. 5. Hypertension. 6. Restless leg syndrome. 7. Gastroesophageal reflux disease. PLAN: Plan at this time is to consult Dr. Yun and repeat the chest x-ray tomorrow to follow up on the pneumothorax. Analgesics have been ordered, including p.r.n. hydrocodone. Her blood pressure is high and I have ordered her home medications, including amlodipine and losartan. I ordered some routine laboratory tests and EKG also. We will also continue the famotidine, Requip and Protonix also. HIPOLITO SCHAFER MD DR: ASAEL/kaveh JOB#: [id number] / [id number]
[2019-01-05] MEDS ORDERED: rOPINIRole 1 MG TABLET. PO SCH ×3 (17:00→21:00)
[2019-01-05] MEDS: FAMOTIDINE 20 MG TABLET. PO SCH (21:02)
[2019-01-05] MEDS: LORazepam 0.5 MG TABLET PO PRN (22:19)
--- NOTE | 2019-01-06 00:35 | CONS ---
DATE OF CONSULTATION: 01/05/2019 ATTENDING PHYSICIAN: Dr. Jesus. REASON FOR CONSULTATION: The patient is seen in pulmonary consultation at the request of Dr. Jesus for chest tube management. HISTORY OF PRESENT ILLNESS: The patient is an 83-year-old with chronic respiratory failure, COPD, normally on 3 liters of oxygen. She was hospitalized back in October 2018 with pneumonia, had a followup CT chest scan revealing right middle lobe density. She underwent a PET scan, which was hyperbolic. I discussed the case at tumor conference. The options would have been bronchoscopy versus fine needle aspiration. I saw the patient in the office, went over the options. I discussed the case with the patient's son. Ultimately, a decision was made to proceed with fine needle aspiration biopsy. I did review the fact that she had 20-25% chance of a pneumothorax. She underwent fine needle aspiration earlier today. She did have pneumothorax that required chest tube placement. She is now admitted. She is having some discomfort from the chest tube site. She has an air leak on the chest tube itself. She denies hemoptysis. No fever, chills or night sweats. PAST MEDICAL HISTORY: Chronic respiratory failure, rheumatoid arthritis, previously abnormal chest x-ray and CT chest, has had recurrent bronchitis, recurrent pneumonia. She has been on Humira in the past for psoriatic arthritis. PAST SURGICAL HISTORY: As above. SOCIAL HISTORY: She smoked 1 pack of cigarettes a day for approximately 65 years. She is currently not smoking, uses a walker to ambulate. FAMILY HISTORY: No family history of lung disorders. REVIEW OF SYSTEMS: CONSTITUTIONAL: No fever or chills. EYES: No change in visual acuity. HEENT: No nasal congestion or sore throat. PULMONARY: As indicated above. CARDIOVASCULAR: No chest pain or pressure. GASTROINTESTINAL: No nausea, vomiting or diarrhea. GENITOURINARY: No dysuria or frequency. MUSCULOSKELETAL: No localized muscle aches or joint pains. SKIN: No new skin lesions. NEUROLOGIC: No headaches, diplopia or blurred vision. LABORATORY DATA: Reviewed. White count was normal. Arterial blood gas, pH of 7.38, paCO2 of 46, pO2 of 71. INR was 1.0. Chest x-ray revealed chest tube in place with a resolving pneumothorax. There was unchanged medial right basilar opacity. IMPRESSION: 1. Expected pneumothorax, status post fine needle aspiration of right lung mass. 2. Right lung mass. 3. Acute on chronic respiratory failure. 4. Chronic obstructive pulmonary disease exacerbation. 5. Hypertension. 6. Osteoarthritis. PLAN: 1. The patient currently has an air leak on chest tube, we will continue, we will suction. We will repeat chest x-ray in the a.m. 2. Follow up on fine needle aspiration. 3. Deep venous thrombosis and gastrointestinal prophylaxis. 4. Continue home medications. I do appreciate the privilege in sharing in the patient's care. JANI ASHTON MD DR: ORLANDO/kaveh JOB#: [id number] / [id number]
[2019-01-06 02:59] VITALS: BP 118/58
[2019-01-06] MEDS: HYDROcodone/APAP 5/325MG 1 TAB TABLET PO PRN ×2 (05:44→19:15)
[2019-01-06] MEDS: PANTOPRAZOLE 40 MG TABLET.DR. PO SCH (06:36)
[2019-01-06 07:00] VITALS: BP 153/94
[2019-01-06] MEDS: amLODIPine BESYLATE 5 MG TABLET PO SCH (08:08)
[2019-01-06] MEDS: LOSARTAN POTASSIUM 50 MG TABLET. PO SCH (08:08)
[2019-01-06] MEDS: DOCUSATE SODIUM 100 MG CAPSULE. PO SCH (08:08)
[2019-01-06] MEDS: KETOROLAC 15 MG/ML VIAL. IV PRN (08:09)
[2019-01-06] MEDS: LORazepam 0.5 MG TABLET PO PRN ×2 (08:28→20:22)
[2019-01-06] MEDS: IPRATROPIUM BROMIDE 0.5 MG/2.5 ML NEBU. NEB PRN (09:00)
--- NOTE | 2019-01-06 09:10 | RAD ---
Chest radiograph 01/06/2019 5:00 AM INDICATION: Pneumothorax, chest tube COMPARISON: January 05, 2019 TECHNIQUE: Portable upright frontal view of the chest is provided. FINDINGS: The cardiomediastinal silhouette is similar in appearance. There is repositioning of a right basilar thoracostomy tube. Interval resolution of right-sided pneumothorax. Trace residual right pleural fluid. There is persistent patchy density at the medial right lung base. There is significant increase in subcutaneous emphysema along the right lateral chest wall. Impression: Interval resolution of right-sided pneumothorax. Significant increase in right chest wall subcutaneous emphysema Electronically signed by: Nivia Cruz MD (01/06/2019 9:07 AM) [id number]
[2019-01-06 11:00] VITALS: BP 91/52
--- NOTE | 2019-01-06 11:29 | PDOC ---
PROGRESS NOTES Subjective Subjective she is comfortable. not short of breath at last. cxr shows resolution of pneumothorax with increased SQ emphysema. Objective Objective Vital Signs Date Time Temp Pulse Resp B/P (MAP) Pulse Ox O2 Delivery O2 Flow Rate FiO2 01/06/19 09:03 95 Nasal Cannula 3.0 01/06/19 08:08 85 01/06/19 07:00 98.5 20 153/94 (113) 98.5 Intake and Output 01/06/19 07:00 Intake Total 300 ml Output Total 900 ml Balance -600 ml Intake Oral 300 ml Output Urine Total 350 ml Chest Tube Drainage Total 550 ml # Bowel Movements 2 Physical Exam Abdomen: Soft Heart: Regular rate, Normal S1, Normal S2 Extremities: No edema General: Alert HEENT: Atraumatic Lungs: Other (clear with decreased breath sounds) Neuro: Normal speech Psych/Mental Status: Mood NL Skin: No rashes Assessment Assessment Problems1. Right-sided pneumothorax following an aspiration needle biopsy of a right lung mass and a chest tube has been placed. pneumothorax resolved. has SQ emphy sema 2. Right lower lobe lung mass, which is hypermetabolic on PET scan. 3. Chronic obstructive pulmonary disease. 4. Chronic hypoxic respiratory failure. 5. Hypertension. 6. Restless leg syndrome. 7. Gastroesophageal reflux disease. Medical Problems: (1) Pneumothorax Status: Acute (2) Pneumothorax of right lung after biopsy Status: Acute Plan Plan of Care continue chest tube continue oxygen continue nebulizer rx continue current meds Comment Review of Relevant I have reviewed the following items anette (where applicable) has been applied. Labs Laboratory Tests Test 01/05/19 07:15 01/05/19 12:10 01/05/19 13:00 01/06/19 03:10 White Blood Count 8.0 x10^3/uL (4.0-11.0) 7.3 x10^3/uL (4.0-11.0) Red Blood Count 4.24 x10^6/uL (3.50-5.40) 4.08 x10^6/uL (3.50-5.40) Hemoglobin 13.2 g/dL (12.0-15.5) 12.4 g/dL (12.0-15.5) Hematocrit 39.5 % (36.0-47.0) 37.8 % (36.0-47.0) Mean Corpuscular Volume 93 fL (79-100) 93 fL (79-100) Mean Corpuscular Hemoglobin 31 pg (25-35) 31 pg (25-35) Mean Corpuscular Hemoglobin Concent 33 g/dL (31-37) 33 g/dL (31-37) Red Cell Distribution Width 16.1 % (11.5-14.5) 16.1 % (11.5-14.5) Platelet Count 252 x10^3/uL (140-400) 238 x10^3/uL (140-400) Neutrophils (%) (Auto) 75 % (31-73) 81 % (31-73) Lymphocytes (%) (Auto) 15 % (24-48) 13 % (24-48) Monocytes (%) (Auto) 8 % (0-9) 5 % (0-9) Eosinophils (%) (Auto) 1 % (0-3) 0 % (0-3) Basophils (%) (Auto) 1 % (0-3) 1 % (0-3) Neutrophils # (Auto) 6.0 x10^3uL (1.8-7.7) 6.0 x10^3uL (1.8-7.7) Lymphocytes # (Auto) 1.2 x10^3/uL (1.0-4.8) 0.9 x10^3/uL (1.0-4.8) Monocytes # (Auto) 0.6 x10^3/uL (0.0-1.1) 0.4 x10^3/uL (0.0-1.1) Eosinophils # (Auto) 0.1 x10^3/uL (0.0-0.7) 0.0 x10^3/uL (0.0-0.7) Basophils # (Auto) 0.1 x10^3/uL (0.0-0.2) 0.1 x10^3/uL (0.0-0.2) Prothrombin Time 13.1 SEC (11.7-14.0) Prothromb Time International Ratio 1.0 (0.8-1.1) Sodium Level 140 mmol/L (136-145) Potassium Level 4.1 mmol/L (3.5-5.1) Chloride Level 102 mmol/L (98-107) Carbon Dioxide Level 30 mmol/L (21-32) Anion Gap 8 (6-14) Blood Urea Nitrogen 12 mg/dL (7-20) Creatinine 0.6 mg/dL (0.6-1.0) Estimated GFR (Cockcroft-Gault) 95.0 BUN/Creatinine Ratio 20 (6-20) Glucose Level 160 mg/dL (70-99) Calcium Level 9.1 mg/dL (8.5-10.1) Total Bilirubin 0.5 mg/dL (0.2-1.0) Aspartate Amino Transf (AST/SGOT) 26 U/L (15-37) Alanine Aminotransferase (ALT/SGPT) 43 U/L (14-59) Alkaline Phosphatase 98 U/L (46-116) Total Protein 6.1 g/dL (6.4-8.2) Albumin 3.2 g/dL (3.4-5.0) Albumin/Globulin Ratio 1.1 (1.0-1.7) O2 Saturation 93 % (92-99) Arterial Blood pH 7.38 (7.35-7.45) Arterial Blood pCO2 at Patient Temp 46 mmHg (35-46) Arterial Blood pO2 at Patient Temp 71 mmHg (65-108) Arterial Blood HCO3 27 mmol/L (21-28) Arterial Blood Base Excess 1 mmol/L (-3-3) FiO2 32 Magnesium Level 2.0 mg/dL (1.8-2.4) Laboratory Tests Test 01/05/19 12:10 01/05/19 13:00 01/06/19 03:10 White Blood Count 7.3 x10^3/uL (4.0-11.0) Red Blood Count 4.08 x10^6/uL (3.50-5.40) Hemoglobin 12.4 g/dL (12.0-15.5) Hematocrit 37.8 % (36.0-47.0) Mean Corpuscular Volume 93 fL (79-100) Mean Corpuscular Hemoglobin 31 pg (25-35) Mean Corpuscular Hemoglobin Concent 33 g/dL (31-37) Red Cell Distribution Width 16.1 % (11.5-14.5) Platelet Count 238 x10^3/uL (140-400) Neutrophils (%) (Auto) 81 % (31-73) Lymphocytes (%) (Auto) 13 % (24-48) Monocytes (%) (Auto) 5 % (0-9) Eosinophils (%) (Auto) 0 % (0-3) Basophils (%) (Auto) 1 % (0-3) Neutrophils # (Auto) 6.0 x10^3uL (1.8-7.7) Lymphocytes # (Auto) 0.9 x10^3/uL (1.0-4.8) Monocytes # (Auto) 0.4 x10^3/uL (0.0-1.1) Eosinophils # (Auto) 0.0 x10^3/uL (0.0-0.7) Basophils # (Auto) 0.1 x10^3/uL (0.0-0.2) Sodium Level 140 mmol/L (136-145) Potassium Level 4.1 mmol/L (3.5-5.1) Chloride Level 102 mmol/L (98-107) Carbon Dioxide Level 30 mmol/L (21-32) Anion Gap 8 (6-14) Blood Urea Nitrogen 12 mg/dL (7-20) Creatinine 0.6 mg/dL (0.6-1.0) Estimated GFR (Cockcroft-Gault) 95.0 BUN/Creatinine Ratio 20 (6-20) Glucose Level 160 mg/dL (70-99) Calcium Level 9.1 mg/dL (8.5-10.1) Total Bilirubin 0.5 mg/dL (0.2-1.0) Aspartate Amino Transf (AST/SGOT) 26 U/L (15-37) Alanine Aminotransferase (ALT/SGPT) 43 U/L (14-59) Alkaline Phosphatase 98 U/L (46-116) Total Protein 6.1 g/dL (6.4-8.2) Albumin 3.2 g/dL (3.4-5.0) Albumin/Globulin Ratio 1.1 (1.0-1.7) O2 Saturation 93 % (92-99) Arterial Blood pH 7.38 (7.35-7.45) Arterial Blood pCO2 at Patient Temp 46 mmHg (35-46) Arterial Blood pO2 at Patient Temp 71 mmHg (65-108) Arterial Blood HCO3 27 mmol/L (21-28) Arterial Blood Base Excess 1 mmol/L (-3-3) FiO2 32 Magnesium Level 2.0 mg/dL (1.8-2.4) Medications Current Medications Lidocaine/Sodium Bicarbonate (Buffered Lidocaine 1%) 3 ml STK-MED ONCE .ROUTE ; Start 01/05/19 at 07:48; Stop 01/05/19 at 07:49; Status DC Lidocaine/Sodium Bicarbonate (Buffered Lidocaine 1%) 3 ml 1X ONCE IJ Last administered on 01/05/19at 08:00; Start 01/05/19 at 08:00; Stop 01/05/19 at 08:01; Status DC Midazolam HCl (Versed) 2 mg 1X ONCE IV Last administered on 01/05/19at 08:00; Start 01/05/19 at 08:00; Stop 01/05/19 at 08:01; Status DC Fentanyl Citrate (Fentanyl 2ml Vial) 100 mcg 1X ONCE IV Last administered on 01/05/19at 08:00; Start 01/05/19 at 08:00; Stop 01/05/19 at 08:01; Status DC Midazolam HCl (Versed) 2 mg STK-MED ONCE .ROUTE ; Start 01/05/19 at 07:55; Stop 01/05/19 at 07:56; Status DC Fentanyl Citrate (Fentanyl 2ml Vial) 100 mcg STK-MED ONCE .ROUTE ; Start 01/05/19 at 07:55; Stop 01/05/19 at 07:56; Status DC Flumazenil (Romazicon) 0.5 mg STK-MED ONCE IV ; Start 01/05/19 at 07:55; Stop 01/05/19 at 07:56; Status DC Naloxone HCl (Narcan) 0.4 mg STK-MED ONCE .ROUTE ; Start 01/05/19 at 07:55; Stop 01/05/19 at 07:56; Status DC Ketorolac Tromethamine (Toradol 15mg Vial) 15 mg PRN Q8HRS PRN IV PAIN Last administered on 01/06/19at 08:09; Start 01/05/19 at 10:45; Stop 01/10/19 at 10:44 Acetaminophen/ Hydrocodone Bitart (Lortab 5/325) 1 tab PRN Q6HRS PRN PO PAIN Last administered on 01/05/19at 10:50; Start 01/05/19 at 10:45; Stop 01/05/19 at 11:43; Status DC Acetaminophen/ Hydrocodone Bitart (Lortab 5/325) 1 tab PRN Q4HRS PRN PO PAIN Last administered on 01/06/19at 05:44; Start 01/05/19 at 11:00 Docusate Sodium (Colace) 100 mg DAILY PO Last administered on 01/06/19at 08:08; Start 01/05/19 at 11:00 Acetaminophen (Tylenol) 650 mg PRN Q6HRS PRN PO HEADACHE/TEMP; Start 01/05/19 at 11:45 Amlodipine Besylate (Norvasc) 5 mg DAILY PO Last administered on 01/06/19 08:08; Start 01/05/19 at 12:00 Losartan Potassium (Cozaar) 50 mg DAILY PO Last administered on 01/06/19at 08:08; Start 01/05/19 at 12:00 Pantoprazole Sodium (Protonix) 40 mg DAILYAC PO Last administered on 01/06/19at 06:36; Start 01/06/19 at 07:30 Ropinirole HCl (Requip) 1 mg DAILYWSUP PO ; Start 01/05/19 at 17:00; Stop 01/05/19 at 17:00; Status DC Ropinirole HCl (Requip) 2 mg QHS PO Last administered on 01/05/19at 21:02; Start 01/05/19 at 21:00 Amlodipine Besylate (Norvasc) 5 mg DAILY PO ; Start 01/05/19 at 12:00; Status UNV Losartan Potassium (Cozaar) 50 mg DAILY PO ; Start 01/05/19 at 12:00; Status UNV Famotidine (Pepcid) 40 mg QHS PO Last administered on 01/05/19at 21:02; Start 01/05/19 at 21:00 Ropinirole HCl (Requip) 2 mg QHS PO ; Start 01/05/19 at 21:00; Status UNV Ropinirole HCl (Requip) 1 mg DAILY16 PO ; Start 01/05/19 at 17:00; Status UNV Ipratropium [place] (Atrovent) 0.5 mg RTQID PRN NEB SHORTNESS OF BREATH Last administered on 01/06/19at 09:00; Start 01/05/19 at 11:45 Acetaminophen (Tylenol) 650 mg PRN Q6HRS PRN PO MILD PAIN / TEMP; Start 01/05/19 at 11:45; Stop 01/05/19 at 11:47; Status DC Magnesium Hydroxide (Milk Of Magnesia) 2,400 mg PRN DAILY PRN PO CONSTIPATION; Start 01/05/19 at 11:45 Ropinirole HCl (Requip) 1 mg DAILYWSUP PO Last administered on 01/05/19at 15:09; Start 01/05/19 at 15:00 Lorazepam (Ativan) 0.5 mg PRN Q8HRS PRN PO ANXIETY / AGITATION Last administered on 01/06/19at 08:28; Start 01/05/19 at 22:15 Active Scripts Active Reported Hydrocodone-Apap 7.5-325 (Hydrocodone Bit/Acetaminophen) 1 Tab Tablet 1 Tab PO PRN Q4HRS PRN Ropinirole Hcl 2 Mg Tablet 2 Mg PO HS Amlodipine Besylate 5 Mg Tablet 5 Mg PO DAILY Ropinirole Hcl 1 Mg Tablet 1 Mg PO DAILYWSUP Duoneb 0.5-3(2.5) Mg/3 Ml (Albuterol/Ipratropium) 3 Ml Ampul.neb 1 INH PRN Q4- 6HRS PRN Losartan Potassium 50 Mg Tablet 50 Mg PO DAILY Prilosec Otc (Omeprazole Magnesium) 20 Mg Tablet. 1 Tab PO DAILY Vitals/I & O Vital Sign - Last 24 Hours 01/05/19 01/05/19 01/05/19 01/05/19 11:28 12:00 12:25 12:25 Pulse 90 92 106 105 B/P (MAP) 159/90 (113) 137/73 (94) 01/05/19 01/05/19 01/05/19 01/05/19 13:00 15:26 17:00 19:12 Temp 98.4 98.4 Pulse 90 82 Resp 30 B/P (MAP) 139/61 (87) 135/58 (83) Pulse Ox 94 O2 Delivery Nasal Cannula Nasal Cannula Nasal Cannula O2 Flow Rate 3.0 3.0 3.0 01/05/19 01/05/19 01/05/19 01/05/19 19:20 21:52 22:52 22:53 Temp 98.7 98.6 98.7 98.6 Pulse 91 85 Resp 20 20 16 22 B/P (MAP) 125/59 (81) 113/57 (75) Pulse Ox 97 91 96 96 O2 Delivery Nasal Cannula Nasal Cannula Nasal Cannula Nasal Cannula O2 Flow Rate 3.0 3.0 3.0 3.0 01/06/19 01/06/19 01/06/19 01/06/19 02:59 05:44 07:00 08:08 Temp 98.5 98.5 98.5 98.5 Pulse 92 92 85 Resp 20 18 20 B/P (MAP) 118/58 (78) 153/94 (113) Pulse Ox 97 94 94 O2 Delivery Nasal Cannula Nasal Cannula Nasal Cannula O2 Flow Rate 3.0 3.0 3.0 01/06/19 01/06/19 08:08 09:03 Pulse 85 Pulse Ox 95 O2 Delivery Nasal Cannula O2 Flow Rate 3.0 Intake and Output 01/05/19 01/05/19 01/06/19 15:00 23:00 07:00 Intake Total 300 ml Output Total 200 ml 420 ml 280 ml Balance -200 ml -420 ml 20 ml Nutrition Consultation Dietary Evaluation: Recommendations by RD: Protein supplementation Comments: Continue w/regular diet as ordered, honor food preferences, and provide snacks as requested REC Ensure TID Expected Outcomes/Goals: PO intake to meet >75% est needs Malnutrition Findings: Body Fat Depletion (Non Severe: Mild Depletion Weight Status: Appropriate HIPOLITO SCHAFER MD Jan 06, 2019 11:29
--- NOTE | 2019-01-06 11:33 | NUR ---
SS following for discharge planning. SS reviewed pt chart. Pt is from home with spouse/family and currently requires oxygen. Per notes pt has home oxygen. No discharge needs noted at this time. SS will continue to follow for discharge planning.
--- NOTE | 2019-01-06 11:35 | PDOC ---
PULMONARY PROGRESS NOTES Subjective C/O CW PAIN MINIMAL AIR LEAK Vitals Vital Signs Date Time Temp Pulse Resp B/P (MAP) Pulse Ox O2 Delivery O2 Flow Rate FiO2 01/06/19 09:03 95 Nasal Cannula 3.0 01/06/19 08:08 85 01/06/19 07:00 98.5 20 153/94 (113) 98.5 General: Alert, No acute distress Lungs: Other (SC AIR RIGHT) Cardiovascular: S1 Abdomen: Soft Neuro Exam: Alert Extremities: No Edema Labs Laboratory Tests Test 01/05/19 07:15 01/05/19 12:10 01/05/19 13:00 01/06/19 03:10 White Blood Count 8.0 x10^3/uL (4.0-11.0) 7.3 x10^3/uL (4.0-11.0) Red Blood Count 4.24 x10^6/uL (3.50-5.40) 4.08 x10^6/uL (3.50-5.40) Hemoglobin 13.2 g/dL (12.0-15.5) 12.4 g/dL (12.0-15.5) Hematocrit 39.5 % (36.0-47.0) 37.8 % (36.0-47.0) Mean Corpuscular Volume 93 fL (79-100) 93 fL (79-100) Mean Corpuscular Hemoglobin 31 pg (25-35) 31 pg (25-35) Mean Corpuscular Hemoglobin Concent 33 g/dL (31-37) 33 g/dL (31-37) Red Cell Distribution Width 16.1 % (11.5-14.5) 16.1 % (11.5-14.5) Platelet Count 252 x10^3/uL (140-400) 238 x10^3/uL (140-400) Neutrophils (%) (Auto) 75 % (31-73) 81 % (31-73) Lymphocytes (%) (Auto) 15 % (24-48) 13 % (24-48) Monocytes (%) (Auto) 8 % (0-9) 5 % (0-9) Eosinophils (%) (Auto) 1 % (0-3) 0 % (0-3) Basophils (%) (Auto) 1 % (0-3) 1 % (0-3) Neutrophils # (Auto) 6.0 x10^3uL (1.8-7.7) 6.0 x10^3uL (1.8-7.7) Lymphocytes # (Auto) 1.2 x10^3/uL (1.0-4.8) 0.9 x10^3/uL (1.0-4.8) Monocytes # (Auto) 0.6 x10^3/uL (0.0-1.1) 0.4 x10^3/uL (0.0-1.1) Eosinophils # (Auto) 0.1 x10^3/uL (0.0-0.7) 0.0 x10^3/uL (0.0-0.7) Basophils # (Auto) 0.1 x10^3/uL (0.0-0.2) 0.1 x10^3/uL (0.0-0.2) Prothrombin Time 13.1 SEC (11.7-14.0) Prothromb Time International Ratio 1.0 (0.8-1.1) Sodium Level 140 mmol/L (136-145) Potassium Level 4.1 mmol/L (3.5-5.1) Chloride Level 102 mmol/L (98-107) Carbon Dioxide Level 30 mmol/L (21-32) Anion Gap 8 (6-14) Blood Urea Nitrogen 12 mg/dL (7-20) Creatinine 0.6 mg/dL (0.6-1.0) Estimated GFR (Cockcroft-Gault) 95.0 BUN/Creatinine Ratio 20 (6-20) Glucose Level 160 mg/dL (70-99) Calcium Level 9.1 mg/dL (8.5-10.1) Total Bilirubin 0.5 mg/dL (0.2-1.0) Aspartate Amino Transf (AST/SGOT) 26 U/L (15-37) Alanine Aminotransferase (ALT/SGPT) 43 U/L (14-59) Alkaline Phosphatase 98 U/L (46-116) Total Protein 6.1 g/dL (6.4-8.2) Albumin 3.2 g/dL (3.4-5.0) Albumin/Globulin Ratio 1.1 (1.0-1.7) O2 Saturation 93 % (92-99) Arterial Blood pH 7.38 (7.35-7.45) Arterial Blood pCO2 at Patient Temp 46 mmHg (35-46) Arterial Blood pO2 at Patient Temp 71 mmHg (65-108) Arterial Blood HCO3 27 mmol/L (21-28) Arterial Blood Base Excess 1 mmol/L (-3-3) FiO2 32 Magnesium Level 2.0 mg/dL (1.8-2.4) Laboratory Tests Test 01/05/19 12:10 01/05/19 13:00 01/06/19 03:10 White Blood Count 7.3 x10^3/uL (4.0-11.0) Red Blood Count 4.08 x10^6/uL (3.50-5.40) Hemoglobin 12.4 g/dL (12.0-15.5) Hematocrit 37.8 % (36.0-47.0) Mean Corpuscular Volume 93 fL (79-100) Mean Corpuscular Hemoglobin 31 pg (25-35) Mean Corpuscular Hemoglobin Concent 33 g/dL (31-37) Red Cell Distribution Width 16.1 % (11.5-14.5) Platelet Count 238 x10^3/uL (140-400) Neutrophils (%) (Auto) 81 % (31-73) Lymphocytes (%) (Auto) 13 % (24-48) Monocytes (%) (Auto) 5 % (0-9) Eosinophils (%) (Auto) 0 % (0-3) Basophils (%) (Auto) 1 % (0-3) Neutrophils # (Auto) 6.0 x10^3uL (1.8-7.7) Lymphocytes # (Auto) 0.9 x10^3/uL (1.0-4.8) Monocytes # (Auto) 0.4 x10^3/uL (0.0-1.1) Eosinophils # (Auto) 0.0 x10^3/uL (0.0-0.7) Basophils # (Auto) 0.1 x10^3/uL (0.0-0.2) Sodium Level 140 mmol/L (136-145) Potassium Level 4.1 mmol/L (3.5-5.1) Chloride Level 102 mmol/L (98-107) Carbon Dioxide Level 30 mmol/L (21-32) Anion Gap 8 (6-14) Blood Urea Nitrogen 12 mg/dL (7-20) Creatinine 0.6 mg/dL (0.6-1.0) Estimated GFR (Cockcroft-Gault) 95.0 BUN/Creatinine Ratio 20 (6-20) Glucose Level 160 mg/dL (70-99) Calcium Level 9.1 mg/dL (8.5-10.1) Total Bilirubin 0.5 mg/dL (0.2-1.0) Aspartate Amino Transf (AST/SGOT) 26 U/L (15-37) Alanine Aminotransferase (ALT/SGPT) 43 U/L (14-59) Alkaline Phosphatase 98 U/L (46-116) Total Protein 6.1 g/dL (6.4-8.2) Albumin 3.2 g/dL (3.4-5.0) Albumin/Globulin Ratio 1.1 (1.0-1.7) O2 Saturation 93 % (92-99) Arterial Blood pH 7.38 (7.35-7.45) Arterial Blood pCO2 at Patient Temp 46 mmHg (35-46) Arterial Blood pO2 at Patient Temp 71 mmHg (65-108) Arterial Blood HCO3 27 mmol/L (21-28) Arterial Blood Base Excess 1 mmol/L (-3-3) FiO2 32 Magnesium Level 2.0 mg/dL (1.8-2.4) Medications Active Scripts Medications Dose Route/Sig Max Daily Dose Days Date Category Hydrocodone-Apap 7.5-325 (Hydrocodone Bit/Acetaminophen) 1 Tab Tablet 1 Tab PO PRN Q4HRS PRN 10/05/18 Reported Ropinirole Hcl 2 Mg Tablet 2 Mg PO HS 10/05/18 Reported Amlodipine Besylate 5 Mg Tablet 5 Mg PO DAILY 10/05/18 Reported Ropinirole Hcl 1 Mg Tablet 1 Mg PO DAILYWSUP 10/05/18 Reported Duoneb 0.5-3(2.5) Mg/3 Ml (Albuterol/Ipratropium) 3 Ml Ampul.neb 1 INH PRN Q4-6HRS PRN 10/05/18 Reported Losartan Potassium 50 Mg Tablet 50 Mg PO DAILY 10/05/18 Reported Prilosec Otc (Omeprazole Magnesium) 20 Mg Tablet.dr 1 Tab PO DAILY 05/16/14 Reported Impression . 1. Expected pneumothorax, status post fine needle aspiration of right lung mass. 2. Right lung mass. d/w path. Preliminary bx c/w adenocarcinoma 3. Acute on chronic respiratory failure. 4. Chronic obstructive pulmonary disease exacerbation. 5. Hypertension. 6. Osteoarthritis. Plan . 1. The patient currently has minimal air leak on chest tube, we will continue suction. We will repeat chest x-ray in the a.m.Monitor sc air 2. Not the best candidate for treatment of lung cancer. will address once PTX resolved. 3. Deep venous thrombosis and gastrointestinal prophylaxis. 4. Continue home medications. 5. Pain control VASYL LAM MD Jan 06, 2019 11:35
[2019-01-06] MEDS: rOPINIRole 1 MG TABLET. PO SCH ×2 (12:07→20:23)
[2019-01-06 15:00] VITALS: BP 110/58
--- NOTE | 2019-01-06 18:06 | PATHOLOGY ---
[facility] Accession Number: [id number] . 01 Material submitted: . lung - RIGHT LUNG MASS. Modifiers: right . 01 Clinical history: . Right lung mass . 02 Diagnosis: Lung tissue, image guided right lung mass needle biopsies: - ADENOCARCINOMA, MODERATELY DIFFERENTIATED. SEE COMMENT. (JPM:[facility] 01/06/2019) QTP/01/06/2019 . 02 Comment: Sections of the right lung mass image guided needle biopsy reveal a malignant epithelial neoplasm. The tumor cells are present in solid nests and form irregular acinar structures. The tumor cells have fairly abundant amounts of eosinophilic cytoplasm, and possess enlarged, rounded to slightly irregular, moderately pleomorphic hyperchromatic nuclei containing prominent nucleoli. Occasional mitotic figures are noted. The morphologic findings are supportive of the diagnosis of a moderately differentiated pulmonary acinar adenocarcinoma. . The case is also examined by Dr. Dove and Dr. Leon, who concur with the diagnosis. The results are reported to Dr. Talbot on 01/06/2019 at 9:30 am. (JPM:[facility] 01/06/2019) . 02 Electronically signed: . Jose De Jesus Hurst MD, Pathologist NPI- [id number] . 01 Gross description: . Received in formalin labeled "Leyda Brandon, right lung mass," are multiple fragments of needle cores of arreguin soft tissue measuring 1.0 x 0.5 x 0.1 cm in aggregate dimensions. The specimen is filtered and entirely submitted in cassette A1. (TSD; 01/05/2019) TOB/TOB . 02 Pathologist provided ICD-10: C34.91 . 02 CPT . 807815 Specimen Comment: A courtesy copy of this report has been sent to Specimen Comment: [phone], , . Specimen Comment: Report sent to ,DR VEGA / DR SCHAFER Performed at: [address] [facility], [place] [id number] MD Guanakito Mendoza MD Phone: [phone] Performed at: 02 [facility] [address], [place] [id number] MD Jose De Jesus Hurst MD Phone: [phone]
[2019-01-06] MEDS: IBUPROFEN 400 MG TABLET. PO SCH (18:27)
[2019-01-06 19:32] VITALS: BP 140/66
[2019-01-06] MEDS: FAMOTIDINE 20 MG TABLET. PO SCH (20:27)
[2019-01-06 22:39] VITALS: BP 131/59
[2019-01-07 03:16] VITALS: BP 135/63
[2019-01-07 07:00] VITALS: BP 142/71
[2019-01-07] MEDS: PANTOPRAZOLE 40 MG TABLET.DR. PO SCH (08:32)
[2019-01-07] MEDS: LOSARTAN POTASSIUM 50 MG TABLET. PO SCH (08:34)
[2019-01-07] MEDS: IBUPROFEN 400 MG TABLET. PO SCH ×3 (08:34→17:42)
[2019-01-07] MEDS: DOCUSATE SODIUM 100 MG CAPSULE. PO SCH (08:34)
[2019-01-07] MEDS: amLODIPine BESYLATE 5 MG TABLET PO SCH (08:35)
--- NOTE | 2019-01-07 08:58 | RAD ---
Exam performed: One view chest HISTORY: Pneumothorax. DATE OF SERVICE: 01/07/2019. COMPARISON: Single view chest from 01/06/2019. FINDINGS: There is extensive right lateral chest wall subcutaneous emphysema. A right thoracostomy tube is redemonstrated in similar position as previously. Right basilar atelectasis and small pleural effusion noted. No gross right pneumothorax is identified there is minimal left basilar atelectasis. IMPRESSION: Right basilar atelectasis and trace right pleural effusion with a right thoracostomy tube in place. No gross pneumothorax identified. Unchanged right lateral chest wall subcutaneous emphysema. Tiny left basilar atelectasis. Electronically signed by: Magnolia Cavanaugh MD (01/07/2019 8:55 AM) [facility]
--- NOTE | 2019-01-07 10:16 | PDOC ---
PULMONARY PROGRESS NOTES Subjective C/O CW PAIN NO AIR LEAK Vitals Vital Signs Date Time Temp Pulse Resp B/P (MAP) Pulse Ox O2 Delivery O2 Flow Rate FiO2 01/07/19 08:35 98 135/63 01/07/19 07:00 97.6 20 98 Nasal Cannula 4.0 97.6 General: Alert, No acute distress Lungs: Other (SC AIR RIGHT) Cardiovascular: S1 Abdomen: Soft Neuro Exam: Alert Extremities: No Edema Labs Laboratory Tests Test 01/05/19 12:10 01/05/19 13:00 01/06/19 03:10 White Blood Count 7.3 x10^3/uL (4.0-11.0) Red Blood Count 4.08 x10^6/uL (3.50-5.40) Hemoglobin 12.4 g/dL (12.0-15.5) Hematocrit 37.8 % (36.0-47.0) Mean Corpuscular Volume 93 fL (79-100) Mean Corpuscular Hemoglobin 31 pg (25-35) Mean Corpuscular Hemoglobin Concent 33 g/dL (31-37) Red Cell Distribution Width 16.1 % (11.5-14.5) Platelet Count 238 x10^3/uL (140-400) Neutrophils (%) (Auto) 81 % (31-73) Lymphocytes (%) (Auto) 13 % (24-48) Monocytes (%) (Auto) 5 % (0-9) Eosinophils (%) (Auto) 0 % (0-3) Basophils (%) (Auto) 1 % (0-3) Neutrophils # (Auto) 6.0 x10^3uL (1.8-7.7) Lymphocytes # (Auto) 0.9 x10^3/uL (1.0-4.8) Monocytes # (Auto) 0.4 x10^3/uL (0.0-1.1) Eosinophils # (Auto) 0.0 x10^3/uL (0.0-0.7) Basophils # (Auto) 0.1 x10^3/uL (0.0-0.2) Sodium Level 140 mmol/L (136-145) Potassium Level 4.1 mmol/L (3.5-5.1) Chloride Level 102 mmol/L (98-107) Carbon Dioxide Level 30 mmol/L (21-32) Anion Gap 8 (6-14) Blood Urea Nitrogen 12 mg/dL (7-20) Creatinine 0.6 mg/dL (0.6-1.0) Estimated GFR (Cockcroft-Gault) 95.0 BUN/Creatinine Ratio 20 (6-20) Glucose Level 160 mg/dL (70-99) Calcium Level 9.1 mg/dL (8.5-10.1) Total Bilirubin 0.5 mg/dL (0.2-1.0) Aspartate Amino Transf (AST/SGOT) 26 U/L (15-37) Alanine Aminotransferase (ALT/SGPT) 43 U/L (14-59) Alkaline Phosphatase 98 U/L (46-116) Total Protein 6.1 g/dL (6.4-8.2) Albumin 3.2 g/dL (3.4-5.0) Albumin/Globulin Ratio 1.1 (1.0-1.7) O2 Saturation 93 % (92-99) Arterial Blood pH 7.38 (7.35-7.45) Arterial Blood pCO2 at Patient Temp 46 mmHg (35-46) Arterial Blood pO2 at Patient Temp 71 mmHg (65-108) Arterial Blood HCO3 27 mmol/L (21-28) Arterial Blood Base Excess 1 mmol/L (-3-3) FiO2 32 Magnesium Level 2.0 mg/dL (1.8-2.4) Medications Active Scripts Medications Dose Route/Sig Max Daily Dose Days Date Category Hydrocodone-Apap 7.5-325 (Hydrocodone Bit/Acetaminophen) 1 Tab Tablet 1 Tab PO PRN Q4HRS PRN 10/05/18 Reported Ropinirole Hcl 2 Mg Tablet 2 Mg PO HS 10/05/18 Reported Amlodipine Besylate 5 Mg Tablet 5 Mg PO DAILY 10/05/18 Reported Ropinirole Hcl 1 Mg Tablet 1 Mg PO DAILYWSUP 10/05/18 Reported Duoneb 0.5-3(2.5) Mg/3 Ml (Albuterol/Ipratropium) 3 Ml Ampul.neb 1 INH PRN Q4-6HRS PRN 10/05/18 Reported Losartan Potassium 50 Mg Tablet 50 Mg PO DAILY 10/05/18 Reported Prilosec Otc (Omeprazole Magnesium) 20 Mg Tablet.dr 1 Tab PO DAILY 05/16/14 Reported Impression . 1. Expected pneumothorax, status post fine needle aspiration of right lung mass. 2. Right lung mass. d/w path. Preliminary bx c/w adenocarcinoma 3. Acute on chronic respiratory failure. 4. Chronic obstructive pulmonary disease exacerbation. 5. Hypertension. 6. Osteoarthritis. Plan . 1. The patient currently has NO air leak on chest tube, we will TRY WATER SEAL. We will repeat chest x-ray in the a.m.Monitor sc air, unchanged so far 2. Not the best candidate for treatment of lung cancer. will address once PTX resolved. consult Medical Onc/ XRT consult 3. Deep venous thrombosis and gastrointestinal prophylaxis. 4. Continue home medications. 5. Pain control d/w family in detail. reviewed PET scan. Could be stage III/ ? IV if effusion malignant VASYL LAM MD Jan 07, 2019 10:16
[2019-01-07] MEDS: HYDROcodone/APAP 5/325MG 1 TAB TABLET PO PRN ×3 (10:31→19:53)
[2019-01-07 11:00] VITALS: BP 127/60
--- NOTE | 2019-01-07 13:04 | PDOC ---
PROGRESS NOTES Subjective Subjective has chest wall pain. preliminary BX results per dr. Talbot noted. patient aware of this. Objective Objective Vital Signs Date Time Temp Pulse Resp B/P (MAP) Pulse Ox O2 Delivery O2 Flow Rate FiO2 01/07/19 11:31 97 Nasal Cannula 4.0 01/07/19 11:00 98.4 89 20 127/60 (82) 98.4 Intake and Output 01/07/19 07:00 Intake Total 1820 ml Output Total 310 ml Balance 1510 ml Intake Oral 720 ml Other 1100 ml Output Urine Total 250 ml Chest Tube Drainage Total 60 ml # Bowel Movements 1 Physical Exam Abdomen: Soft Heart: Regular rate, Normal S1, Normal S2 Extremities: No edema General: Alert HEENT: Atraumatic Lungs: Other (decreased breath sounds. chest tube on right.) Neuro: Normal speech Psych/Mental Status: Mental status NL Skin: No rashes Assessment Assessment Problems1. Right-sided pneumothorax following an aspiration needle biopsy of a right lung mass and a chest tube has been placed. pneumothorax resolved. has SQ emphysema 2. Right lower lobe lung mass, which is hypermetabolic on PET scan. preliminary results is adenocarcinoma 3. Chronic obstructive pulmonary disease. 4. Chronic hypoxic respiratory failure. 5. Hypertension. 6. Restless leg syndrome. 7. Gastroesophageal reflux disease. Medical Problems: (1) Acute and chronic respiratory failure Status: Acute (2) Pneumothorax Status: Acute (3) Pneumothorax of right lung after biopsy Status: Acute (4) Right lower lobe lung mass Status: Acute Plan Plan of Care continue chest tube consult oncology and radiation therapy Comment Review of Relevant I have reviewed the following items anette (where applicable) has been applied. Labs Laboratory Tests Test 01/06/19 03:10 Magnesium Level 2.0 mg/dL (1.8-2.4) Medications Current Medications Lidocaine/Sodium Bicarbonate (Buffered Lidocaine 1%) 3 ml STK-MED ONCE .ROUTE ; Start 01/05/19 at 07:48; Stop 01/05/19 at 07:49; Status DC Lidocaine/Sodium Bicarbonate (Buffered Lidocaine 1%) 3 ml 1X ONCE IJ Last administered on 01/05/19at 08:00; Start 01/05/19 at 08:00; Stop 01/05/19 at 08:01; Status DC Midazolam HCl (Versed) 2 mg 1X ONCE IV Last administered on 01/05/19at 08:00; Start 01/05/19 at 08:00; Stop 01/05/19 at 08:01; Status DC Fentanyl Citrate (Fentanyl 2ml Vial) 100 mcg 1X ONCE IV Last administered on 01/05/19at 08:00; Start 01/05/19 at 08:00; Stop 01/05/19 at 08:01; Status DC Midazolam HCl (Versed) 2 mg STK-MED ONCE .ROUTE ; Start 01/05/19 at 07:55; Stop 01/05/19 at 07:56; Status DC Fentanyl Citrate (Fentanyl 2ml Vial) 100 mcg STK-MED ONCE .ROUTE ; Start 01/05/19 at 07:55; Stop 01/05/19 at 07:56; Status DC Flumazenil (Romazicon) 0.5 mg STK-MED ONCE IV ; Start 01/05/19 at 07:55; Stop 01/05/19 at 07:56; Status DC Naloxone HCl (Narcan) 0.4 mg STK-MED ONCE .ROUTE ; Start 01/05/19 at 07:55; Stop 01/05/19 at 07:56; Status DC Ketorolac Tromethamine (Toradol 15mg Vial) 15 mg PRN Q8HRS PRN IV PAIN Last administered on 01/06/19at 08:09; Start 01/05/19 at 10:45; Stop 01/10/19 at 10:44 Acetaminophen/ Hydrocodone Bitart (Lortab 5/325) 1 tab PRN Q6HRS PRN PO PAIN Last administered on 01/05/19at 10:50; Start 01/05/19 at 10:45; Stop 01/05/19 at 11:43; Status DC Acetaminophen/ Hydrocodone Bitart (Lortab 5/325) 1 tab PRN Q4HRS PRN PO PAIN Last administered on 01/07/19at 10:31; Start 01/05/19 at 11:00 Docusate Sodium (Colace) 100 mg DAILY PO Last administered on 01/06/19at 08:08; Start 01/05/19 at 11:00 Acetaminophen (Tylenol) 650 mg PRN Q6HRS PRN PO HEADACHE/TEMP; Start 01/05/19 at 11:45 Amlodipine Besylate (Norvasc) 5 mg DAILY PO Last administered on 01/07/19at 08:35; Start 01/05/19 at 12:00 Losartan Potassium (Cozaar) 50 mg DAILY PO Last administered on 01/07/19 08:34; Start 01/05/19 at 12:00 Pantoprazole Sodium (Protonix) 40 mg DAILYAC PO Last administered on 01/07/19 08:32; Start 01/06/19 at 07:30 Ropinirole HCl (Requip) 1 mg DAILYWSUP PO ; Start 01/05/19 at 17:00; Stop 01/05/19 at 17:00; Status DC Ropinirole HCl (Requip) 2 mg QHS PO Last administered on 01/06/19 20:23; Start 01/05/19 at 21:00 Amlodipine Besylate (Norvasc) 5 mg DAILY PO ; Start 01/05/19 at 12:00; Status UNV Losartan Potassium (Cozaar) 50 mg DAILY PO ; Start 01/05/19 at 12:00; Status UNV Famotidine (Pepcid) 40 mg QHS PO Last administered on 01/06/19 20:27; Start 01/05/19 at 21:00 Ropinirole HCl (Requip) 2 mg QHS PO ; Start 01/05/19 at 21:00; Status UNV Ropinirole HCl (Requip) 1 mg DAILY16 PO ; Start 01/05/19 at 17:00; Status UNV Ipratropium [place] (Atrovent) 0.5 mg RTQID PRN NEB SHORTNESS OF BREATH Last administered on 01/06/19 09:00; Start 01/05/19 at 11:45 Acetaminophen (Tylenol) 650 mg PRN Q6HRS PRN PO MILD PAIN / TEMP; Start 01/05/19 at 11:45; Stop 01/05/19 at 11:47; Status DC Magnesium Hydroxide (Milk Of Magnesia) 2,400 mg PRN DAILY PRN PO CONSTIPATION; Start 01/05/19 at 11:45 Ropinirole HCl (Requip) 1 mg DAILYWSUP PO Last administered on 01/06/19 12:07; Start 01/05/19 at 15:00 Lorazepam (Ativan) 0.5 mg PRN Q8HRS PRN PO ANXIETY / AGITATION Last administered on 01/06/19 20:22; Start 01/05/19 at 22:15 Ibuprofen (Motrin) 400 mg TIDWMEALS PO Last administered on 01/07/19at 08:34; Start 01/06/19 at 17:00 Active Scripts Active Reported Hydrocodone-Apap 7.5-325 (Hydrocodone Bit/Acetaminophen) 1 Tab Tablet 1 Tab PO PRN Q4HRS PRN Ropinirole Hcl 2 Mg Tablet 2 Mg PO HS Amlodipine Besylate 5 Mg Tablet 5 Mg PO DAILY Ropinirole Hcl 1 Mg Tablet 1 Mg PO DAILYWSUP Duoneb 0.5-3(2.5) Mg/3 Ml (Albuterol/Ipratropium) 3 Ml Ampul.neb 1 INH PRN Q4- 6HRS PRN Losartan Potassium 50 Mg Tablet 50 Mg PO DAILY Prilosec Otc (Omeprazole Magnesium) 20 Mg Tablet. 1 Tab PO DAILY Vitals/I & O Vital Sign - Last 24 Hours 01/06/19 01/06/19 01/06/19 01/06/19 15:00 19:32 20:00 20:15 Temp 98.2 98.9 98.2 98.9 Pulse 99 123 Resp 18 B/P (MAP) 110/58 (75) 140/66 (90) Pulse Ox 96 94 O2 Delivery Nasal Cannula Nasal Cannula Nasal Cannula O2 Flow Rate 3.0 4.0 4.0 01/06/19 01/07/19 01/07/19 01/07/19 22:39 03:16 07:00 08:00 Temp 98.6 98.0 97.6 98.6 98.0 97.6 Pulse 90 98 89 Resp 20 B/P (MAP) 131/59 (83) 135/63 (87) 142/71 (94) Pulse Ox 98 95 98 O2 Delivery Nasal Cannula Nasal Cannula Nasal Cannula Nasal Cannula O2 Flow Rate 4.0 4.0 4.0 4.0 01/07/19 01/07/19 01/07/19 01/07/19 08:34 08:35 10:31 11:00 Temp 98.4 98.4 Pulse 98 98 89 Resp 20 B/P (MAP) 135/63 135/63 127/60 (82) Pulse Ox 98 97 O2 Delivery Nasal Cannula Nasal Cannula O2 Flow Rate 4.0 4.0 01/07/19 11:31 Pulse Ox 97 O2 Delivery Nasal Cannula O2 Flow Rate 4.0 Intake and Output 01/06/19 01/06/19 01/07/19 15:00 23:00 07:00 Intake Total 360 ml 360 ml 1100 ml Output Total 60 ml 250 ml Balance 360 ml 300 ml 850 ml Nutrition Consultation Dietary Evaluation: Recommendations by RD: Protein supplementation Comments: Continue w/regular diet as ordered, honor food preferences, and provide snacks as requested REC Ensure TID Expected Outcomes/Goals: PO intake to meet >75% est needs Malnutrition Findings: Body Fat Depletion (Non Severe: Mild Depletion Weight Status: Appropriate HIPOLITO SCHAFER MD Jan 07, 2019 13:04
[2019-01-07] MEDS: IPRATROPIUM BROMIDE 0.5 MG/2.5 ML NEBU. NEB PRN (14:50)
[2019-01-07 15:00] VITALS: BP 102/52
[2019-01-07] MEDS: rOPINIRole 1 MG TABLET. PO SCH ×2 (17:42→19:50)
[2019-01-07 19:05] VITALS: BP 136/64
[2019-01-07] MEDS: FAMOTIDINE 20 MG TABLET. PO SCH (19:49)
[2019-01-07 23:00] VITALS: BP 136/67
[2019-01-08 02:15] VITALS: BP 137/68
[2019-01-08] MEDS: HYDROcodone/APAP 5/325MG 1 TAB TABLET PO PRN ×3 (04:11→21:09)
[2019-01-08 07:37] VITALS: BP 123/50
[2019-01-08] MEDS: PANTOPRAZOLE 40 MG TABLET.DR. PO SCH (08:11)
[2019-01-08] MEDS: amLODIPine BESYLATE 5 MG TABLET PO SCH (08:12)
[2019-01-08] MEDS: IBUPROFEN 400 MG TABLET. PO SCH ×3 (08:12→16:55)
[2019-01-08] MEDS: DOCUSATE SODIUM 100 MG CAPSULE. PO SCH (08:12)
[2019-01-08] MEDS: LOSARTAN POTASSIUM 50 MG TABLET. PO SCH (08:12)
--- NOTE | 2019-01-08 08:13 | RAD ---
Chest radiograph 01/08/2019 7:16 AM INDICATION: Pneumothorax COMPARISON: January 07, 2019 TECHNIQUE: Portable upright frontal view of the chest is provided. FINDINGS: The cardiomediastinal silhouette is similar in appearance. Pigtail catheter is identified at the right lung base position. Interval improved aeration of the right lung base with persistent patchy interstitial and alveolar airspace disease. Trace left pleural effusion is identified with adjacent compressive atelectasis. Mild interstitial prominence appears similar. No definite pneumothorax is visualized. IMPRESSION: Minimal improved aeration at the right lung base with persistent patchy airspace disease at the right lung base. Similar aeration of the left lung. Electronically signed by: Nivia Cruz MD (01/08/2019 8:10 AM) [id number]
--- NOTE | 2019-01-08 09:23 | PDOC ---
PULMONARY PROGRESS NOTES Subjective C/O CW PAIN NO AIR LEAK Vitals Vital Signs Date Time Temp Pulse Resp B/P (MAP) Pulse Ox O2 Delivery O2 Flow Rate FiO2 01/08/19 08:12 88 123/50 01/08/19 08:00 Nasal Cannula 4.0 01/08/19 07:37 98.2 18 96 98.2 General: Alert, No acute distress Lungs: Other (SC AIR RIGHT) Cardiovascular: S1 Abdomen: Soft Neuro Exam: Alert Extremities: No Edema Medications Active Scripts Medications Dose Route/Sig Max Daily Dose Days Date Category Hydrocodone-Apap 7.5-325 (Hydrocodone Bit/Acetaminophen) 1 Tab Tablet 1 Tab PO PRN Q4HRS PRN 10/05/18 Reported Ropinirole Hcl 2 Mg Tablet 2 Mg PO HS 10/05/18 Reported Amlodipine Besylate 5 Mg Tablet 5 Mg PO DAILY 10/05/18 Reported Ropinirole Hcl 1 Mg Tablet 1 Mg PO DAILYWSUP 10/05/18 Reported Duoneb 0.5-3(2.5) Mg/3 Ml (Albuterol/Ipratropium) 3 Ml Ampul.neb 1 INH PRN Q4-6HRS PRN 10/05/18 Reported Losartan Potassium 50 Mg Tablet 50 Mg PO DAILY 10/05/18 Reported Prilosec Otc (Omeprazole Magnesium) 20 Mg Tablet.dr 1 Tab PO DAILY 05/16/14 Reported Comments cxr 01/08 no PTX, unchanged sc air right Impression . 1. Expected pneumothorax, status post fine needle aspiration of right lung mass. 2. Right lung mass. d/w path. Preliminary bx c/w adenocarcinoma 3. Acute on chronic respiratory failure. 4. Chronic obstructive pulmonary disease exacerbation. 5. Hypertension. 6. Osteoarthritis. Plan . 1. The patient currently has NO air leak on chest tube, we will TRY WATER SEAL. We will repeat chest x-ray in the a.m.Monitor sc air, unchanged so far, will consider clamping ct in am before removal 2. Not the best candidate for treatment of lung cancer. . consulted Medical Onc/ XRT 3. Deep venous thrombosis and gastrointestinal prophylaxis. 4. Continue home medications. 5. Pain control d/w family in detail. reviewed PET scan. Could be stage III/ ? IV if effusi on malignant VASYL LAM MD Jan 08, 2019 09:23
--- NOTE | 2019-01-08 09:34 | PDOC2 ---
CONSULT Date of Consult Date of Consult DATE: 01/08/19 TIME: 09:24 Reason for consultation: New diagnosis lung cancer Consult: Hematology oncology, Dr. Carlos Manuel Uribe History of present illness: 83-year-old female with recent treatment for pneumonia, and continued pulmonary findings PET avid, had a biopsy, consistent with adenocarcinoma, postbiopsy pneumothorax improved with chest tube, currently only symptoms include pain from the chest tube & shortness of breath, currently on 5 L, typically on 3 L at home. Has quit smoking before and then restarted but has not smoked since admission. Interested in comfort & not prolonging life. Regarding her lung cancer it is in the right middle lobe, acutely noted on recent biopsy, with also extension possibly to hilar lymph nodes and an epicardial fat nodule, as well as effusion, associated with shortness of breath, she has had a cough in the past but that has ceased recently until today, and this right middle lobe lesion has grown and worsened over time. Past medical history: Hypertension GERD Tobacco Anxiety COPD on 3 L home oxygen Restless leg syndrome UTI Steroid-induced hyperglycemia History of pneumonia Overactive bladder Postbiopsy pneumothorax improved with chest tube Osteoarthritis Psoriatic arthritis, with prior Humira Past surgical history: Right lung biopsy Chest tube placement Hemorrhoidectomy Appendectomy Vocal cord nodule excision Hernia repair Right hip repair Allergies: Penicillin Medications: See attached list Social history: 1 pack cigs per day �64 years, 1 son in [place], one daughter lives with her, , lives close by, uses a walker, one granddaughter Family history: Mother and half-sister with leukemia Review of systems: Cough that started today, shortness of breath chronic worsened lately, chest pain related to chest tube, anxiety, otherwise 10 point review of systems is negative Physical exam: Vitals reviewed Gen.: thin elderly female, on oxygen, which chest tube in place draining yellowish fluid, had been more bloody earlier, in no acute distress HEENT: mucous membranes moist, head normocephalic atraumatic Neck: Supple, no lymphadenopathy Lymph nodes: No palpable lymphadenopathy neck or axilla Lungs: Breathing comfortably on NCO2, w/o respiratory distress Abdomen: Soft, nontender, nondistended Extremities: No cyanosis or edema Skin: No obvious rashes or skin breakdown, age-related changes notable Neuro: Alert and oriented �3 Psych: depressed mood and affect Lab reviewed: White count 7.3, hemoglobin 12.4, platelets 238 MCV 93 INR 1.0 Creatinine 0.6 Hepatic fine Rads reviewed: PET/CT 17 December 2018 showed 4.6 cm SUV 5.5 right middle lobe mass, low-level right paratracheal and right hilar uptake with an SUV of 2.8, mildly avid 13 mm nodule right epicardial fat with an SUV of 2.7, enlarging right effusion, with worse right lower lobe atelectasis/consolidation Case discussed with: Patient, Dr. Guerrero, records reviewed [facility], including labs and radiology, please see note for summary details. Assessment and Plan: 83-year-old female with new diagnosis of moderately differentiated adenocarcinoma from 06 January 2019 right lung biopsy, she has evidence of a right middle lobe mass with some possible hilar lymph node involvement, possible metastatic nodule at the right epicardial fat and possible associated effusion that has been enlarging, has been treated for pneumonia recently, is on oxygen, symptomatic from chest tube pain and cough this morning and still smoking. Lung cancer: She does not want any life prolonging measures, is not interested in any chemotherapy options, therefore will not pursue ancillary testing of tumor however this was certainly offered and we can do this if she wanted down the road, however with her age and functional status she would prefer to discuss with palliative care her options including hospice, we'll consult Mrs. Hedrick and I do appreciate her help. Also radiation oncology has been consulted for possible palliative radiotherapy? We discussed further staging with a brain MRI or CT scan and she does not want this, not having headaches or symptoms neurologically so I will not pursue this per her request. Tobacco abuse: Highly recommend smoking cessation, she has not smoked since admit and has quit before, I do recommend this to help improve quality of life at the end-of-life Disposition: Per others, would highly consider home hospice availability after discussion with Mrs. Hedrick, and follow-up with us can be when necessary Thank you kindly for this consultation, and please don't hesitate to call with any further questions. Current Problem List Problem List Problems Medical Problems: (1) Acute and chronic respiratory failure Status: Acute (2) Pneumothorax Status: Acute (3) Pneumothorax of right lung after biopsy Status: Acute (4) Right lower lobe lung mass Status: Acute Current Medications Current Medications Current Medications Lidocaine/Sodium Bicarbonate (Buffered Lidocaine 1%) 3 ml E-Line Media-MED ONCE .ROUTE ; Start 01/05/19 at 07:48; Stop 01/05/19 at 07:49; Status DC Lidocaine/Sodium Bicarbonate (Buffered Lidocaine 1%) 3 ml 1X ONCE IJ Last administered on 01/05/19at 08:00; Start 01/05/19 at 08:00; Stop 01/05/19 at 08:01; Status DC Midazolam HCl (Versed) 2 mg 1X ONCE IV Last administered on 01/05/19at 08:00; Start 01/05/19 at 08:00; Stop 01/05/19 at 08:01; Status DC Fentanyl Citrate (Fentanyl 2ml Vial) 100 mcg 1X ONCE IV Last administered on 01/05/19at 08:00; Start 01/05/19 at 08:00; Stop 01/05/19 at 08:01; Status DC Midazolam HCl (Versed) 2 mg STK-MED ONCE .ROUTE ; Start 01/05/19 at 07:55; Stop 01/05/19 at 07:56; Status DC Fentanyl Citrate (Fentanyl 2ml Vial) 100 mcg STK-MED ONCE .ROUTE ; Start 01/05/19 at 07:55; Stop 01/05/19 at 07:56; Status DC Flumazenil (Romazicon) 0.5 mg STK-MED ONCE IV ; Start 01/05/19 at 07:55; Stop 01/05/19 at 07:56; Status DC Naloxone HCl (Narcan) 0.4 mg STK-MED ONCE .ROUTE ; Start 01/05/19 at 07:55; Stop 01/05/19 at 07:56; Status DC Ketorolac Tromethamine (Toradol 15mg Vial) 15 mg PRN Q8HRS PRN IV PAIN Last administered on 01/06/19at 08:09; Start 01/05/19 at 10:45; Stop 01/10/19 at 10:44 Acetaminophen/ Hydrocodone Bitart (Lortab 5/325) 1 tab PRN Q6HRS PRN PO PAIN Last administered on 01/05/19at 10:50; Start 01/05/19 at 10:45; Stop 01/05/19 at 11:43; Status DC Acetaminophen/ Hydrocodone Bitart (Lortab 5/325) 1 tab PRN Q4HRS PRN PO PAIN Last administered on 01/08/19at 04:11; Start 01/05/19 at 11:00 Docusate Sodium (Colace) 100 mg DAILY PO Last administered on 01/08/19 08:12; Start 01/05/19 at 11:00 Acetaminophen (Tylenol) 650 mg PRN Q6HRS PRN PO HEADACHE/TEMP; Start 01/05/19 at 11:45 Amlodipine Besylate (Norvasc) 5 mg DAILY PO Last administered on 01/08/19 08:12; Start 01/05/19 at 12:00 Losartan Potassium (Cozaar) 50 mg DAILY PO Last administered on 01/08/19 08:12; Start 01/05/19 at 12:00 Pantoprazole Sodium (Protonix) 40 mg DAILYAC PO Last administered on 01/08/19 08:11; Start 01/06/19 at 07:30 Ropinirole HCl (Requip) 1 mg DAILYWSUP PO ; Start 01/05/19 at 17:00; Stop 01/05/19 at 17:00; Status DC Ropinirole HCl (Requip) 2 mg QHS PO Last administered on 01/07/19 19:50; Start 01/05/19 at 21:00 Amlodipine Besylate (Norvasc) 5 mg DAILY PO ; Start 01/05/19 at 12:00; Status UNV Losartan Potassium (Cozaar) 50 mg DAILY PO ; Start 01/05/19 at 12:00; Status UNV Famotidine (Pepcid) 40 mg QHS PO Last administered on 01/07/19 19:49; Start 01/05/19 at 21:00 Ropinirole HCl (Requip) 2 mg QHS PO ; Start 01/05/19 at 21:00; Status UNV Ropinirole HCl (Requip) 1 mg DAILY16 PO ; Start 01/05/19 at 17:00; Status UNV Ipratropium [place] (Atrovent) 0.5 mg RTQID PRN NEB SHORTNESS OF BREATH Last administered on 01/07/19at 14:50; Start 01/05/19 at 11:45 Acetaminophen (Tylenol) 650 mg PRN Q6HRS PRN PO MILD PAIN / TEMP; Start 01/05/19 at 11:45; Stop 01/05/19 at 11:47; Status DC Magnesium Hydroxide (Milk Of Magnesia) 2,400 mg PRN DAILY PRN PO CONSTIPATION; Start 01/05/19 at 11:45 Ropinirole HCl (Requip) 1 mg DAILYWSUP PO Last administered on 01/07/19at 17:42; Start 01/05/19 at 15:00 Lorazepam (Ativan) 0.5 mg PRN Q8HRS PRN PO ANXIETY / AGITATION Last administered on 01/06/19at 20:22; Start 01/05/19 at 22:15 Ibuprofen (Motrin) 400 mg TIDWMEALS PO Last administered on 01/08/19at 08:12; Start 01/06/19 at 17:00 Active Scripts Active Reported Hydrocodone-Apap 7.5-325 (Hydrocodone Bit/Acetaminophen) 1 Tab Tablet 1 Tab PO PRN Q4HRS PRN Ropinirole Hcl 2 Mg Tablet 2 Mg PO HS Amlodipine Besylate 5 Mg Tablet 5 Mg PO DAILY Ropinirole Hcl 1 Mg Tablet 1 Mg PO DAILYWSUP Duoneb 0.5-3(2.5) Mg/3 Ml (Albuterol/Ipratropium) 3 Ml Ampul.neb 1 INH PRN Q4- 6HRS PRN Losartan Potassium 50 Mg Tablet 50 Mg PO DAILY Prilosec Otc (Omeprazole Magnesium) 20 Mg Tablet. 1 Tab PO DAILY Allergies Allergies: Coded Allergies: Penicillins (Verified Allergy, Severe, swelling, 11/16/18) Has tolerated cephalasporins Vitals VITALS Vital Signs Date Time Temp Pulse Resp B/P (MAP) Pulse Ox O2 Delivery O2 Flow Rate FiO2 01/08/19 08:12 88 123/50 01/08/19 08:00 Nasal Cannula 4.0 01/08/19 07:37 98.2 18 96 98.2 CARLOS MANUEL URIBE MD Jan 08, 2019 09:34
[2019-01-08 10:36] VITALS: BP 102/55
--- NOTE | 2019-01-08 11:01 | PDOC ---
PROGRESS NOTES Subjective Subjective discussed with patient and her and daughter at bedside of preliminary ex of adenocarcinoma of lung and consults with oncology and radiation rx and she wants to speak with palliative care. Objective Objective Vital Signs Date Time Temp Pulse Resp B/P (MAP) Pulse Ox O2 Delivery O2 Flow Rate FiO2 01/08/19 10:36 98.4 94 18 102/55 (71) 93 Nasal Cannula 5.0 98.4 Intake and Output 01/08/19 07:00 Intake Total 180 ml Output Total 650 ml Balance -470 ml Intake Oral 180 ml Output Urine Total 500 ml Chest Tube Drainage Total 150 ml # Voids 1 Physical Exam Abdomen: Soft Heart: Regular rate, Normal S1, Normal S2 Extremities: No edema General: Alert HEENT: Atraumatic Lungs: Other (decreased breath sounds with few rhonchi right lung base) Neuro: Normal speech Psych/Mental Status: Mental status NL Skin: No rashes Assessment Assessment Problems1. Right-sided pneumothorax following an aspiration needle biopsy of a right lung mass and a chest tube has been placed. pneumothorax resolved. has SQ emphysema 2. Right lower lobe lung mass, which is hypermetabolic on PET scan. preliminary results is adenocarcinoma 3. Chronic obstructive pulmonary disease. 4. Chronic hypoxic respiratory failure. 5. Hypertension. 6. Restless leg syndrome. 7. Gastroesophageal reflux disease. Medical Problems: (1) Acute and chronic respiratory failure Status: Acute (2) Pneumothorax Status: Acute (3) Pneumothorax of right lung after biopsy Status: Acute (4) Right lower lobe lung mass Status: Acute Plan Plan of Care chest tube per dr hilton consult oncology and radiation rx and palliative care Comment Review of Relevant I have reviewed the following items anette (where applicable) has been applied. Medications Current Medications Lidocaine/Sodium Bicarbonate (Buffered Lidocaine 1%) 3 ml STK-MED ONCE .ROUTE ; Start 01/05/19 at 07:48; Stop 01/05/19 at 07:49; Status DC Lidocaine/Sodium Bicarbonate (Buffered Lidocaine 1%) 3 ml 1X ONCE IJ Last administered on 01/05/19at 08:00; Start 01/05/19 at 08:00; Stop 01/05/19 at 08:01; Status DC Midazolam HCl (Versed) 2 mg 1X ONCE IV Last administered on 01/05/19at 08:00; Start 01/05/19 at 08:00; Stop 01/05/19 at 08:01; Status DC Fentanyl Citrate (Fentanyl 2ml Vial) 100 mcg 1X ONCE IV Last administered on 01/05/19at 08:00; Start 01/05/19 at 08:00; Stop 01/05/19 at 08:01; Status DC Midazolam HCl (Versed) 2 mg STK-MED ONCE .ROUTE ; Start 01/05/19 at 07:55; Stop 01/05/19 at 07:56; Status DC Fentanyl Citrate (Fentanyl 2ml Vial) 100 mcg STK-MED ONCE .ROUTE ; Start 01/05/19 at 07:55; Stop 01/05/19 at 07:56; Status DC Flumazenil (Romazicon) 0.5 mg STK-MED ONCE IV ; Start 01/05/19 at 07:55; Stop 01/05/19 at 07:56; Status DC Naloxone HCl (Narcan) 0.4 mg STK-MED ONCE .ROUTE ; Start 01/05/19 at 07:55; Stop 01/05/19 at 07:56; Status DC Ketorolac Tromethamine (Toradol 15mg Vial) 15 mg PRN Q8HRS PRN IV PAIN Last administered on 01/06/19at 08:09; Start 01/05/19 at 10:45; Stop 01/10/19 at 10:44 Acetaminophen/ Hydrocodone Bitart (Lortab 5/325) 1 tab PRN Q6HRS PRN PO PAIN Last administered on 01/05/19at 10:50; Start 01/05/19 at 10:45; Stop 01/05/19 at 11:43; Status DC Acetaminophen/ Hydrocodone Bitart (Lortab 5/325) 1 tab PRN Q4HRS PRN PO PAIN Last administered on 01/08/19at 04:11; Start 01/05/19 at 11:00 Docusate Sodium (Colace) 100 mg DAILY PO Last administered on 01/08/19at 08:12; Start 01/05/19 at 11:00 Acetaminophen (Tylenol) 650 mg PRN Q6HRS PRN PO HEADACHE/TEMP; Start 01/05/19 at 11:45 Amlodipine Besylate (Norvasc) 5 mg DAILY PO Last administered on 01/08/19at 08:12; Start 01/05/19 at 12:00 Losartan Potassium (Cozaar) 50 mg DAILY PO Last administered on 01/08/19 08:12; Start 01/05/19 at 12:00 Pantoprazole Sodium (Protonix) 40 mg DAILYAC PO Last administered on 01/08/19 08:11; Start 01/06/19 at 07:30 Ropinirole HCl (Requip) 1 mg DAILYWSUP PO ; Start 01/05/19 at 17:00; Stop 01/05/19 at 17:00; Status DC Ropinirole HCl (Requip) 2 mg QHS PO Last administered on 01/07/19 19:50; Start 01/05/19 at 21:00 Amlodipine Besylate (Norvasc) 5 mg DAILY PO ; Start 01/05/19 at 12:00; Status UNV Losartan Potassium (Cozaar) 50 mg DAILY PO ; Start 01/05/19 at 12:00; Status UNV Famotidine (Pepcid) 40 mg QHS PO Last administered on 01/07/19 19:49; Start 01/05/19 at 21:00 Ropinirole HCl (Requip) 2 mg QHS PO ; Start 01/05/19 at 21:00; Status UNV Ropinirole HCl (Requip) 1 mg DAILY16 PO ; Start 01/05/19 at 17:00; Status UNV Ipratropium [place] (Atrovent) 0.5 mg RTQID PRN NEB SHORTNESS OF BREATH Last administered on 01/07/19at 14:50; Start 01/05/19 at 11:45 Acetaminophen (Tylenol) 650 mg PRN Q6HRS PRN PO MILD PAIN / TEMP; Start 01/05/19 at 11:45; Stop 01/05/19 at 11:47; Status DC Magnesium Hydroxide (Milk Of Magnesia) 2,400 mg PRN DAILY PRN PO CONSTIPATION; Start 01/05/19 at 11:45 Ropinirole HCl (Requip) 1 mg DAILYWSUP PO Last administered on 01/07/19at 17:42; Start 01/05/19 at 15:00 Lorazepam (Ativan) 0.5 mg PRN Q8HRS PRN PO ANXIETY / AGITATION Last administered on 01/06/19 20:22; Start 01/05/19 at 22:15 Ibuprofen (Motrin) 400 mg TIDWMEALS PO Last administered on 01/08/19at 08:12; Start 01/06/19 at 17:00 Active Scripts Active Reported Hydrocodone-Apap 7.5-325 (Hydrocodone Bit/Acetaminophen) 1 Tab Tablet 1 Tab PO PRN Q4HRS PRN Ropinirole Hcl 2 Mg Tablet 2 Mg PO HS Amlodipine Besylate 5 Mg Tablet 5 Mg PO DAILY Ropinirole Hcl 1 Mg Tablet 1 Mg PO DAILYWSUP Duoneb 0.5-3(2.5) Mg/3 Ml (Albuterol/Ipratropium) 3 Ml Ampul.neb 1 INH PRN Q4- 6HRS PRN Losartan Potassium 50 Mg Tablet 50 Mg PO DAILY Prilosec Otc (Omeprazole Magnesium) 20 Mg Tablet. 1 Tab PO DAILY Vitals/I & O Vital Sign - Last 24 Hours 01/07/19 01/07/19 01/07/19 01/07/19 11:00 14:37 14:51 15:00 Temp 98.4 98.0 98.4 98.0 Pulse 89 101 Resp 18 B/P (MAP) 127/60 (82) 102/52 (69) Pulse Ox 97 97 92 O2 Delivery Nasal Cannula Nasal Cannula Nasal Cannula Nasal Cannula O2 Flow Rate 4.0 5.0 5.0 5.0 01/07/19 01/07/19 01/07/19 01/07/19 19:05 19:53 20:00 23:00 Temp 98.2 97.7 98.2 97.7 Pulse 82 89 Resp B/P (MAP) 136/64 (88) 136/67 (90) Pulse Ox 96 O2 Delivery Nasal Cannula Nasal Cannula Nasal Cannula Nasal Cannula O2 Flow Rate 5.0 3.0 3.0 5.0 01/08/19 01/08/19 01/08/19 01/08/19 02:15 04:11 05:11 07:37 Temp 97.6 98.2 97.6 98.2 Pulse 77 88 Resp 18 B/P (MAP) 137/68 (91) 123/50 (74) Pulse Ox 100 100 100 96 O2 Delivery Nasal Cannula Nasal Cannula Nasal Cannula Nasal Cannula O2 Flow Rate 5.0 5.0 5.0 5.0 01/08/19 01/08/19 01/08/19 01/08/19 08:00 08:12 08:12 10:36 Temp 98.4 98.4 Pulse 88 88 94 Resp 18 B/P (MAP) 123/50 123/50 102/55 (71) Pulse Ox 93 O2 Delivery Nasal Cannula Nasal Cannula O2 Flow Rate 4.0 5.0 Intake and Output 01/07/19 01/07/19 01/08/19 15:00 23:00 07:00 Intake Total 180 ml Output Total 150 ml 500 ml Balance 180 ml -150 ml -500 ml Nutrition Consultation Dietary Evaluation: Recommendations by RD: Protein supplementation Comments: Continue w/regular diet as ordered, honor food preferences, and provide snacks as requested REC Ensure TID Expected Outcomes/Goals: PO intake to meet >75% est needs Malnutrition Findings: Body Fat Depletion (Non Severe: Mild Depletion Weight Status: Appropriate HIPOLITO SCHAFER MD Jan 08, 2019 11:01
--- NOTE | 2019-01-08 11:55 | NUR ---
SS following up with discharge planning. Palliative Care consulted. SS will continue to follow for discharge planning.
[2019-01-08 14:58] VITALS: BP 131/66
--- NOTE | 2019-01-08 15:29 | PDOC2 ---
CONSULT Date of Consult Date of Consult DATE: 01/08/19 TIME: 15:07 Reason for Consult Reason for Consult: Lung cancer Referring Physician Referring Physician: Dr. Jesus Identification/Chief Complaint Chief Complaint Lung cancer Problems: (1) Right lower lobe lung mass History of Present Illness Reason for Visit: Ms. Brandon is a longstanding smoker, > 60 pack years, still smoking at the time of admission. She is on 3L NC O2 at home as baseline. Her HPI began with a RML lung mass which slowly grew over time and was felt to contribute to episodes of PNA. 11/13/18 CT chest revealed a 3.8 cm RML mass extending towards the hilum. PET/CT 12/17/18 demonstrated a 4.6 cm RML mass with max SUV 5.5, with concerning right hilar and right paratracheal adenopathy with SUV up to 2.8. Also noted was a hypermetabolic nodule in the epicardial fat. RLL consolidation increased in the interval. A right lung pleural effusion increased in the interval. She made a judgment to proceed with biopsy to determine the diagnosis. Biopsy of the RML lung mass 01/05/19 has revealed adenocarcinoma. No mutational analyses (ALK, EGFR, PDL1) have been undertaken. The biopsy procedure was complicated by right pneumothorax requiring chest tube placement. While admitted, Dr. Uribe of medical oncology was consulted and noted that Ms. Brandon did not wish to pursue chemotherapy and was strongly considering comfort care with Hospice. Therefore, Dr. Uribe did not recommend mutational testing or additional staging with MRI brain. We have been consulted to discuss the possible role of radiation therapy in her care. Today, Ms. Brandon reports she is eager to have her chest tube removed and head home. She has been coughing since admission. She continues to have discomfort at the chest tube site. She is requiring 5L NC O2, an increase from her home baseline. No hemoptysis today. Past Medical History Past Medical History HTN GERD Smoker Anxiety COPD on chronic O2 UTI PNA Psoriatic arthritis Osteoarthritis Overactive bladder Restless Leg Syndrome Past Surgical History Past Surgical History Right hip XIAO Hernia repair Appendectomy Hemorrhoidectomy Excision of vocal cord nodule Right lung biopsy Chest tube placement Family History Family History Mother - leukemia Half-sister - leukemia Social History Social History Smoker, 1PPD for more than 60 years. She has two children, one grandchild. . and daughter accompany her today at bedside. Current Problem List Problem List Problems Medical Problems: (1) Acute and chronic respiratory failure Status: Acute (2) Pneumothorax Status: Acute (3) Pneumothorax of right lung after biopsy Status: Acute (4) Right lower lobe lung mass Status: Acute Current Medications Current Medications Current Medications Lidocaine/Sodium Bicarbonate (Buffered Lidocaine 1%) 3 ml STK-MED ONCE .ROUTE ; Start 01/05/19 at 07:48; Stop 01/05/19 at 07:49; Status DC Lidocaine/Sodium Bicarbonate (Buffered Lidocaine 1%) 3 ml 1X ONCE IJ Last administered on 01/05/19at 08:00; Start 01/05/19 at 08:00; Stop 01/05/19 at 08:01; Status DC Midazolam HCl (Versed) 2 mg 1X ONCE IV Last administered on 01/05/19at 08:00; Start 01/05/19 at 08:00; Stop 01/05/19 at 08:01; Status DC Fentanyl Citrate (Fentanyl 2ml Vial) 100 mcg 1X ONCE IV Last administered on 01/05/19at 08:00; Start 01/05/19 at 08:00; Stop 01/05/19 at 08:01; Status DC Midazolam HCl (Versed) 2 mg STK-MED ONCE .ROUTE ; Start 01/05/19 at 07:55; Stop 01/05/19 at 07:56; Status DC Fentanyl Citrate (Fentanyl 2ml Vial) 100 mcg STK-MED ONCE .ROUTE ; Start 01/05/19 at 07:55; Stop 01/05/19 at 07:56; Status DC Flumazenil (Romazicon) 0.5 mg STK-MED ONCE IV ; Start 01/05/19 at 07:55; Stop 01/05/19 at 07:56; Status DC Naloxone HCl (Narcan) 0.4 mg STK-MED ONCE .ROUTE ; Start 01/05/19 at 07:55; Stop 01/05/19 at 07:56; Status DC Ketorolac Tromethamine (Toradol 15mg Vial) 15 mg PRN Q8HRS PRN IV PAIN Last administered on 01/06/19at 08:09; Start 01/05/19 at 10:45; Stop 01/10/19 at 10:44 Acetaminophen/ Hydrocodone Bitart (Lortab 5/325) 1 tab PRN Q6HRS PRN PO PAIN Last administered on 01/05/19 10:50; Start 01/05/19 at 10:45; Stop 01/05/19 at 11:43; Status DC Acetaminophen/ Hydrocodone Bitart (Lortab 5/325) 1 tab PRN Q4HRS PRN PO PAIN Last administered on 01/08/19 04:11; Start 01/05/19 at 11:00 Docusate Sodium (Colace) 100 mg DAILY PO Last administered on 01/08/19 08:12; Start 01/05/19 at 11:00 Acetaminophen (Tylenol) 650 mg PRN Q6HRS PRN PO HEADACHE/TEMP; Start 01/05/19 at 11:45 Amlodipine Besylate (Norvasc) 5 mg DAILY PO Last administered on 01/08/19 08:12; Start 01/05/19 at 12:00 Losartan Potassium (Cozaar) 50 mg DAILY PO Last administered on 01/08/19 08:12; Start 01/05/19 at 12:00 Pantoprazole Sodium (Protonix) 40 mg DAILYAC PO Last administered on 01/08/19 08:11; Start 01/06/19 at 07:30 Ropinirole HCl (Requip) 1 mg DAILYWSUP PO ; Start 01/05/19 at 17:00; Stop 01/05/19 at 17:00; Status DC Ropinirole HCl (Requip) 2 mg QHS PO Last administered on 01/07/19 19:50; Start 01/05/19 at 21:00 Amlodipine Besylate (Norvasc) 5 mg DAILY PO ; Start 01/05/19 at 12:00; Status UNV Losartan Potassium (Cozaar) 50 mg DAILY PO ; Start 01/05/19 at 12:00; Status UNV Famotidine (Pepcid) 40 mg QHS PO Last administered on 01/07/19 19:49; Start 01/05/19 at 21:00 Ropinirole HCl (Requip) 2 mg QHS PO ; Start 01/05/19 at 21:00; Status UNV Ropinirole HCl (Requip) 1 mg DAILY16 PO ; Start 01/05/19 at 17:00; Status UNV Ipratropium [place] (Atrovent) 0.5 mg RTQID PRN NEB SHORTNESS OF BREATH Last administered on 01/07/19at 14:50; Start 01/05/19 at 11:45 Acetaminophen (Tylenol) 650 mg PRN Q6HRS PRN PO MILD PAIN / TEMP; Start 01/05/19 at 11:45; Stop 01/05/19 at 11:47; Status DC Magnesium Hydroxide (Milk Of Magnesia) 2,400 mg PRN DAILY PRN PO CONSTIPATION; Start 01/05/19 at 11:45 Ropinirole HCl (Requip) 1 mg DAILYWSUP PO Last administered on 01/07/19at 17:42; Start 01/05/19 at 15:00 Lorazepam (Ativan) 0.5 mg PRN Q8HRS PRN PO ANXIETY / AGITATION Last administered on 01/06/19at 20:22; Start 01/05/19 at 22:15 Ibuprofen (Motrin) 400 mg TIDWMEALS PO Last administered on 01/08/19at 08:12; Start 01/06/19 at 17:00 Active Scripts Active Reported Hydrocodone-Apap 7.5-325 (Hydrocodone Bit/Acetaminophen) 1 Tab Tablet 1 Tab PO PRN Q4HRS PRN Ropinirole Hcl 2 Mg Tablet 2 Mg PO HS Amlodipine Besylate 5 Mg Tablet 5 Mg PO DAILY Ropinirole Hcl 1 Mg Tablet 1 Mg PO DAILYWSUP Duoneb 0.5-3(2.5) Mg/3 Ml (Albuterol/Ipratropium) 3 Ml Ampul.neb 1 INH PRN Q4- 6HRS PRN Losartan Potassium 50 Mg Tablet 50 Mg PO DAILY Prilosec Otc (Omeprazole Magnesium) 20 Mg Tablet. 1 Tab PO DAILY Allergies Allergies: Coded Allergies: Penicillins (Verified Allergy, Severe, swelling, 11/16/18) Has tolerated cephalasporins ROS Review of System A 12-point ROS is reviewed and is negative except as noted above in the HPI Physical Exam Physical Exam Vital signs reviewed in EMR. Constitutional: Elderly adult female. Seated in bedside chair on NC O2. NAD. HEENT: NC O2 in place. NC, AT. EOMI. MMM. Respiratory: Breathing comfortably on 5L NC O2. Right CW chest tube in place. Cardiovascular: Extremities well-perfused. Abdomen: Non-distended. MSK: Good ROM of bilateral UEs. SCHEDULE ANNOUNCER/Neuro: CN II-XII grossly intact. No focal neuro deficits. Psych: AOx4. Normal memory, judgment, insight. Vitals VITALS Vital Signs Date Time Temp Pulse Resp B/P (MAP) Pulse Ox O2 Delivery O2 Flow Rate FiO2 01/08/19 14:58 98.5 88 18 131/66 (87) 99 Nasal Cannula 5.0 98.5 Labs Labs Reviewed. Creatinine normal. No significant anemia. Images Images PET/CT and CT chest reviewed as above in HPI. Assessment/Plan Assessment/Plan 1. Adenocarcinoma of the RML lung. Incompletely staged. Concerning for right hilar and mediastinal involvement, with possible epicardial fat metastasis and possible malignant pleural effusion. I discussed Ms. Brandon' diagnosis and treatment options with her in detail. We discussed staging, and she affirmed she does not wish to pursue an MRI brain. She will consider testing her tumor for ALK, EGFR, and PDL1 - if she is interested in this testing she may ask to speak to Dr. Uribe first about targeted therapy or immunotherapy in more detail. She is not a candidate for surgery. I do not believe she would tolerate definitive chemoradiation, and she does not currently wish to pursue aggressive therapy. There is currently no indication for emergent radiation therapy. We discussed palliative radiation therapy in detail. We discussed that a palliative treatment such as 30 Gy in 10 fractions or 40 Gy in 15 fractions may maintain patency of her RML and RLL which currently appear threatened by her primary tumor. We discussed that maintaining airway patency would likely improve her quality of life in the future even if she did ultimately pursue comfort care with hospice. She is interested in improving her quality of life, or delaying a decline in quality of life if possible. After our discussion Ms. Brandon wishes to confer with her family and consider her options further. I offered to have her meet with Dr. Cordova next week, either as an inpatient if she remains here, or as an outpatient if she is discharged to home. She does seem interested in palliative radiation, but she feels a bit overwhelmed today and does wish to deliberate a bit more. If she wishes to see Dr. Cordova, she will notify the primary team who will contact him/his office. Sincerely, -Vince Baca III, MD Radiation Oncology (covering for Dr. Max Cordova) CLIFFORD BACA III, MD Jan 08, 2019 15:29
[2019-01-08] MEDS: rOPINIRole 1 MG TABLET. PO SCH ×2 (17:05→21:04)
[2019-01-08 19:30] VITALS: BP 114/57
[2019-01-08] MEDS: FAMOTIDINE 20 MG TABLET. PO SCH (21:04)
[2019-01-08 23:20] VITALS: BP 109/62
[2019-01-09 03:24] VITALS: BP 132/68
--- NOTE | 2019-01-09 06:43 | PDOC ---
PULMONARY PROGRESS NOTES Subjective no sob, has occ cough, nasal congestion, has pain on ct site NO AIR LEAK Vitals Vital Signs Date Time Temp Pulse Resp B/P (MAP) Pulse Ox O2 Delivery O2 Flow Rate FiO2 01/09/19 03:24 98.2 84 18 132/68 (89) 95 Nasal Cannula 5.0 98.2 ROS: No Nausea General: Alert, No acute distress Lungs: Crackles, Other (SC AIR RIGHT, r ct, dull at base) Cardiovascular: S1, S2 Abdomen: Soft, Non-tender Neuro Exam: Alert Extremities: No Edema Skin: Warm Medications Active Scripts Medications Dose Route/Sig Max Daily Dose Days Date Category Hydrocodone-Apap 7.5-325 (Hydrocodone Bit/Acetaminophen) 1 Tab Tablet 1 Tab PO PRN Q4HRS PRN 10/05/18 Reported Ropinirole Hcl 2 Mg Tablet 2 Mg PO HS 10/05/18 Reported Amlodipine Besylate 5 Mg Tablet 5 Mg PO DAILY 10/05/18 Reported Ropinirole Hcl 1 Mg Tablet 1 Mg PO DAILYWSUP 10/05/18 Reported Duoneb 0.5-3(2.5) Mg/3 Ml (Albuterol/Ipratropium) 3 Ml Ampul.neb 1 INH PRN Q4-6HRS PRN 10/05/18 Reported Losartan Potassium 50 Mg Tablet 50 Mg PO DAILY 10/05/18 Reported Prilosec Otc (Omeprazole Magnesium) 20 Mg Tablet.dr 1 Tab PO DAILY 05/16/14 Reported Comments cxr 01/09 no PTX, r small effusion/atelectasis/infilt, sc air right Impression . 1. Expected pneumothorax, status post fine needle aspiration of right lung mass. 2. Right lung mass. d/w path. Preliminary bx c/w adenocarcinoma 3. Acute on chronic respiratory failure. 4. Chronic obstructive pulmonary disease exacerbation. 5. Hypertension. 6. Osteoarthritis. Plan . 1. The patient currently has NO air leak on chest tube,on WATER SEAL. reviewed cxr, no ptx, will clamp, cxr in am, if ok will remove ct 2. Not the best candidate for treatment of lung cancer. . consulted Medical Onc/ XRT 3. Deep venous thrombosis and gastrointestinal prophylaxis. 4. Continue home medications. 5. Pain control 6. start flonase for nasal congestion d/w pt and rn, reviewed PET scan. oncology consulted LIZZIE TEMPLE MD Jan 09, 2019 06:42
[2019-01-09 07:00] VITALS: BP 119/62
--- NOTE | 2019-01-09 07:54 | RAD ---
PORTABLE CHEST 1V History: Pneumothorax Comparison: January 08, 2019 Findings: Single view of the chest is submitted. There is again small caliber catheter right lung base. There is again prominent gas frontal chest wall and right neck soft tissues unchanged. There are suspected small pleural effusions bilaterally with adjacent bibasilar airspace opacity greater on the right. No definitive pneumothorax is identified by radiograph. Impression: 1. There is again prominent gas in the right lateral chest wall, no definitive pneumothorax identified by radiograph. There is small caliber right chest tube. There are small pleural effusions and bibasilar airspace opacity which may be due to atelectasis/infiltrates. Electronically signed by: Terry Rios MD (01/09/2019 7:51 AM) [facility]
[2019-01-09] MEDS: IBUPROFEN 400 MG TABLET. PO SCH ×3 (08:24→16:52)
[2019-01-09] MEDS: PANTOPRAZOLE 40 MG TABLET.DR. PO SCH (08:24)
[2019-01-09] MEDS: LOSARTAN POTASSIUM 50 MG TABLET. PO SCH (08:24)
[2019-01-09] MEDS: DOCUSATE SODIUM 100 MG CAPSULE. PO SCH (08:24)
[2019-01-09] MEDS: amLODIPine BESYLATE 5 MG TABLET PO SCH (08:24)
[2019-01-09] MEDS: FLUTICASONE 50MCG/NASAL SPRAY 16GM BOTTLE. NS SCH (08:25)
[2019-01-09] MEDS: HYDROcodone/APAP 5/325MG 1 TAB TABLET PO PRN ×2 (08:28→20:32)
--- NOTE | 2019-01-09 10:59 | PDOC ---
PROGRESS NOTES Subjective Subjective cxr reviewed . she feels better. she is considering palliative radiation tx. Objective Objective Vital Signs Date Time Temp Pulse Resp B/P (MAP) Pulse Ox O2 Delivery O2 Flow Rate FiO2 01/09/19 08:28 95 Nasal Cannula 5.0 01/09/19 08:24 84 119/62 01/09/19 07:00 98.5 19 98.5 Intake and Output 01/09/19 07:00 Intake Total 900 ml Output Total 575 ml Balance 325 ml Intake Oral 900 ml Output Urine Total 300 ml Chest Tube Drainage Total 275 ml # Voids 1 Physical Exam Abdomen: Soft Heart: Regular rate, Normal S1, Normal S2 Extremities: No edema General: Alert HEENT: Atraumatic Lungs: Other (clear with decreased breath sounds. chest tube on right) Neuro: Normal speech Psych/Mental Status: Mental status NL Skin: No rashes Assessment Assessment Problems1. Right-sided pneumothorax following an aspiration needle biopsy of a right lung mass and a chest tube has been placed. pneumothorax resolved. has SQ emphysema 2. Right middle lobe lung mass, which is hypermetabolic on PET scan. preliminary results is adenocarcinoma 3. Chronic obstructive pulmonary disease. 4. Chronic hypoxic respiratory failure. 5. Hypertension. 6. Restless leg syndrome. 7. Gastroesophageal reflux disease. Medical Problems: (1) Acute and chronic respiratory failure Status: Acute (2) Pneumothorax Status: Acute (3) Pneumothorax of right lung after biopsy Status: Acute (4) Right lower lobe lung mass Status: Acute Plan Plan of Care palliative care consult chest tube per pulmonary she is considering palliative radiation rx Comment Review of Relevant I have reviewed the following items anette (where applicable) has been applied. Medications Current Medications Lidocaine/Sodium Bicarbonate (Buffered Lidocaine 1%) 3 ml STK-MED ONCE .ROUTE ; Start 01/05/19 at 07:48; Stop 01/05/19 at 07:49; Status DC Lidocaine/Sodium Bicarbonate (Buffered Lidocaine 1%) 3 ml 1X ONCE IJ Last administered on 01/05/19at 08:00; Start 01/05/19 at 08:00; Stop 01/05/19 at 08:01; Status DC Midazolam HCl (Versed) 2 mg 1X ONCE IV Last administered on 01/05/19at 08:00; Start 01/05/19 at 08:00; Stop 01/05/19 at 08:01; Status DC Fentanyl Citrate (Fentanyl 2ml Vial) 100 mcg 1X ONCE IV Last administered on 01/05/19at 08:00; Start 01/05/19 at 08:00; Stop 01/05/19 at 08:01; Status DC Midazolam HCl (Versed) 2 mg STK-MED ONCE .ROUTE ; Start 01/05/19 at 07:55; Stop 01/05/19 at 07:56; Status DC Fentanyl Citrate (Fentanyl 2ml Vial) 100 mcg STK-MED ONCE .ROUTE ; Start 01/05/19 at 07:55; Stop 01/05/19 at 07:56; Status DC Flumazenil (Romazicon) 0.5 mg STK-MED ONCE IV ; Start 01/05/19 at 07:55; Stop 01/05/19 at 07:56; Status DC Naloxone HCl (Narcan) 0.4 mg STK-MED ONCE .ROUTE ; Start 01/05/19 at 07:55; Stop 01/05/19 at 07:56; Status DC Ketorolac Tromethamine (Toradol 15mg Vial) 15 mg PRN Q8HRS PRN IV PAIN Last administered on 01/06/19at 08:09; Start 01/05/19 at 10:45; Stop 01/10/19 at 10:44 Acetaminophen/ Hydrocodone Bitart (Lortab 5/325) 1 tab PRN Q6HRS PRN PO PAIN Last administered on 01/05/19at 10:50; Start 01/05/19 at 10:45; Stop 01/05/19 at 11:43; Status DC Acetaminophen/ Hydrocodone Bitart (Lortab 5/325) 1 tab PRN Q4HRS PRN PO PAIN Last administered on 01/09/19at 08:28; Start 01/05/19 at 11:00 Docusate Sodium (Colace) 100 mg DAILY PO Last administered on 01/09/19 08:24; Start 01/05/19 at 11:00 Acetaminophen (Tylenol) 650 mg PRN Q6HRS PRN PO HEADACHE/TEMP Last administered on 01/08/19 17:06; Start 01/05/19 at 11:45 Amlodipine Besylate (Norvasc) 5 mg DAILY PO Last administered on 01/09/19at 08:24; Start 01/05/19 at 12:00 Losartan Potassium (Cozaar) 50 mg DAILY PO Last administered on 01/09/19 08:24; Start 01/05/19 at 12:00 Pantoprazole Sodium (Protonix) 40 mg DAILYAC PO Last administered on 01/09/19 08:24; Start 01/06/19 at 07:30 Ropinirole HCl (Requip) 1 mg DAILYWSUP PO ; Start 01/05/19 at 17:00; Stop 01/05/19 at 17:00; Status DC Ropinirole HCl (Requip) 2 mg QHS PO Last administered on 01/08/19 21:04; Start 01/05/19 at 21:00 Amlodipine Besylate (Norvasc) 5 mg DAILY PO ; Start 01/05/19 at 12:00; Status UNV Losartan Potassium (Cozaar) 50 mg DAILY PO ; Start 01/05/19 at 12:00; Status UNV Famotidine (Pepcid) 40 mg QHS PO Last administered on 01/08/19 21:04; Start 01/05/19 at 21:00 Ropinirole HCl (Requip) 2 mg QHS PO ; Start 01/05/19 at 21:00; Status UNV Ropinirole HCl (Requip) 1 mg DAILY16 PO ; Start 01/05/19 at 17:00; Status UNV Ipratropium [place] (Atrovent) 0.5 mg RTQID PRN NEB SHORTNESS OF BREATH Last administered on 01/07/19 14:50; Start 01/05/19 at 11:45 Acetaminophen (Tylenol) 650 mg PRN Q6HRS PRN PO MILD PAIN / TEMP; Start 01/05/19 at 11:45; Stop 01/05/19 at 11:47; Status DC Magnesium Hydroxide (Milk Of Magnesia) 2,400 mg PRN DAILY PRN PO CONSTIPATION; Start 01/05/19 at 11:45 Ropinirole HCl (Requip) 1 mg DAILYWSUP PO Last administered on 01/08/19at 17:05; Start 01/05/19 at 15:00 Lorazepam (Ativan) 0.5 mg PRN Q8HRS PRN PO ANXIETY / AGITATION Last administered on 01/06/19 20:22; Start 01/05/19 at 22:15 Ibuprofen (Motrin) 400 mg TIDWMEALS PO Last administered on 01/09/19at 08:24; Start 01/06/19 at 17:00 Fluticasone Propionate (Flonase) 2 spray DAILY NS Last administered on 01/09/19at 08:25; Start 01/09/19 at 09:00 Active Scripts Active Reported Hydrocodone-Apap 7.5-325 (Hydrocodone Bit/Acetaminophen) 1 Tab Tablet 1 Tab PO PRN Q4HRS PRN Ropinirole Hcl 2 Mg Tablet 2 Mg PO HS Amlodipine Besylate 5 Mg Tablet 5 Mg PO DAILY Ropinirole Hcl 1 Mg Tablet 1 Mg PO DAILYWSUP Duoneb 0.5-3(2.5) Mg/3 Ml (Albuterol/Ipratropium) 3 Ml Ampul.neb 1 INH PRN Q4- 6HRS PRN Losartan Potassium 50 Mg Tablet 50 Mg PO DAILY Prilosec Otc (Omeprazole Magnesium) 20 Mg Tablet.dr 1 Tab PO DAILY Vitals/I & O Vital Sign - Last 24 Hours 01/08/19 01/08/19 01/08/19 01/08/19 14:58 15:06 17:06 18:38 Temp 98.5 98.5 Pulse 88 Resp 18 B/P (MAP) 131/66 (87) Pulse Ox 99 99 99 99 O2 Delivery Nasal Cannula Nasal Cannula Nasal Cannula O2 Flow Rate 5.0 5.0 5.0 01/08/19 01/08/19 01/08/19 01/08/19 19:17 19:30 21:09 22:31 Temp 98.4 98.4 Pulse 94 Resp B/P (MAP) 114/57 (76) Pulse Ox 96 O2 Delivery Nasal Cannula Nasal Cannula Nasal Cannula Nasal Cannula O2 Flow Rate 5.0 5.0 5.0 5.0 01/08/19 01/09/19 01/09/19 01/09/19 23:20 03:24 07:00 08:00 Temp 98.2 98.2 98.5 98.2 98.2 98.5 Pulse 93 84 84 Resp B/P (MAP) 109/62 (78) 132/68 (89) 119/62 (81) Pulse Ox 94 95 95 O2 Delivery Nasal Cannula Nasal Cannula Nasal Cannula Nasal Cannula O2 Flow Rate 5.0 5.0 5.0 5.0 01/09/19 01/09/19 01/09/19 08:24 08:24 08:28 Pulse 84 84 B/P (MAP) 119/62 119/62 Pulse Ox 95 O2 Delivery Nasal Cannula O2 Flow Rate 5.0 Intake and Output 01/08/19 01/08/19 01/09/19 15:00 23:00 07:00 Intake Total 120 ml 660 ml 120 ml Output Total 75 ml 200 ml 300 ml Balance 45 ml 460 ml -180 ml Nutrition Consultation Dietary Evaluation: Recommendations by RD: Protein supplementation Comments: Continue w/regular diet as ordered, honor food preferences, and provide snacks as requested REC Ensure TID Expected Outcomes/Goals: PO intake to meet >75% est needs Malnutrition Findings: Body Fat Depletion (Non Severe: Mild Depletion Weight Status: Appropriate HIPOLITO SCHAFER MD Jan 09, 2019 10:59
[2019-01-09 11:00] VITALS: BP 129/60
[2019-01-09 15:00] VITALS: BP 109/47
[2019-01-09] MEDS: rOPINIRole 1 MG TABLET. PO SCH ×2 (16:51→20:31)
[2019-01-09 19:27] VITALS: BP 108/52
[2019-01-09] MEDS: FAMOTIDINE 20 MG TABLET. PO SCH (20:31)
[2019-01-09 23:40] VITALS: BP 132/63
[2019-01-10 03:35] VITALS: BP 157/68
[2019-01-10 07:00] VITALS: BP 126/61
--- NOTE | 2019-01-10 08:13 | RAD ---
Exam performed: 2 views of the chest. Indication: Pneumothorax, chest tube clamped Date of Service: 01/10/2019 6:38 AM . Comparison : One view chest from 01/09/2019 Findings: PA and lateral radiographs of the chest reveal a normal cardiomediastinal contour. The lungs are hyperinflated with increased AP diameter of the chest . Linear right basilar opacities likely atelectasis with small bilateral pleural effusions. There is a smallbore chest tube projecting in the right lung base. No definite pneumothorax is identified. Subadjacent emphysema along the right lateral chest wall appears improved. The visualized osseous structures are unremarkable. Impression: COPD with emphysematous lungs. Linear right basilar opacities likely atelectasis with small bilateral pleural effusions. Right chest tube, unchanged. No pneumothorax is identified. Electronically signed by: Magnolia Cavanaugh MD (01/10/2019 8:10 AM) [facility]
[2019-01-10] MEDS: KETOROLAC 15 MG/ML VIAL. IV PRN (08:19)
[2019-01-10] MEDS: HYDROcodone/APAP 5/325MG 1 TAB TABLET PO PRN (08:19)
[2019-01-10] MEDS: IBUPROFEN 400 MG TABLET. PO SCH ×3 (08:19→16:30)
[2019-01-10] MEDS: DOCUSATE SODIUM 100 MG CAPSULE. PO SCH (08:20)
[2019-01-10] MEDS: FLUTICASONE 50MCG/NASAL SPRAY 16GM BOTTLE. NS SCH (08:20)
[2019-01-10] MEDS: amLODIPine BESYLATE 5 MG TABLET PO SCH (08:20)
[2019-01-10] MEDS: PANTOPRAZOLE 40 MG TABLET.DR. PO SCH (08:20)
[2019-01-10] MEDS: LOSARTAN POTASSIUM 50 MG TABLET. PO SCH (08:21)
--- NOTE | 2019-01-10 09:39 | PDOC ---
PULMONARY PROGRESS NOTES Subjective no sob, has occ cough, no nasal congestion, has pain on ct site NO AIR LEAK Vitals Vital Signs Date Time Temp Pulse Resp B/P (MAP) Pulse Ox O2 Delivery O2 Flow Rate FiO2 01/10/19 08:21 84 126/61 01/10/19 08:19 98 Nasal Cannula 5.0 01/10/19 07:00 98.1 18 98.1 ROS: No Nausea General: Alert, No acute distress Lungs: Crackles, Other (SC AIR RIGHT, r ct, dull at base) Cardiovascular: S1, S2 Abdomen: Soft, Non-tender Neuro Exam: Alert Extremities: No Edema Skin: Warm Medications Active Scripts Medications Dose Route/Sig Max Daily Dose Days Date Category Hydrocodone-Apap 7.5-325 (Hydrocodone Bit/Acetaminophen) 1 Tab Tablet 1 Tab PO PRN Q4HRS PRN 10/05/18 Reported Ropinirole Hcl 2 Mg Tablet 2 Mg PO HS 10/05/18 Reported Amlodipine Besylate 5 Mg Tablet 5 Mg PO DAILY 10/05/18 Reported Ropinirole Hcl 1 Mg Tablet 1 Mg PO DAILYWSUP 10/05/18 Reported Duoneb 0.5-3(2.5) Mg/3 Ml (Albuterol/Ipratropium) 3 Ml Ampul.neb 1 INH PRN Q4-6HRS PRN 10/05/18 Reported Losartan Potassium 50 Mg Tablet 50 Mg PO DAILY 10/05/18 Reported Prilosec Otc (Omeprazole Magnesium) 20 Mg Tablet. 1 Tab PO DAILY 05/16/14 Reported Comments cxr 01/10 reviewed COPD with emphysematous lungs. Linear right basilar opacities likely atelectasis with small bilateral pleural effusions. Right chest tube, unchanged. No pneumothorax is identified. Impression . 1. Expected pneumothorax, status post fine needle aspiration of right lung mass. 2. Right lung mass. d/w path. Preliminary bx c/w adenocarcinoma 3. Acute on chronic respiratory failure. 4. Chronic obstructive pulmonary disease exacerbation. 5. Hypertension. 6. Osteoarthritis. Plan . 1. ct clamped for 24 hrs, cxr, no ptx, will dc ct, chest tube removed, tolerated well, will do cxr stat and reviewed, no ptx 2. Not the best candidate for treatment of lung cancer. . consulted Medical Onc/ XRT 3. Deep venous thrombosis and gastrointestinal prophylaxis. 4. Continue home medications. 5. Pain control 6. flonase for nasal congestion d/w pt and rn, reviewed PET scan. oncology consulted LIZZIE TEMPLE MD Jan 10, 2019 09:39
--- NOTE | 2019-01-10 10:31 | RAD ---
Exam performed one view chest HISTORY: Chest tube removal. DATE OF SERVICE: 01/10/2019. COMPARISON: 2 views chest from earlier today. FINDINGS: Heart size and Mediastinal silhouette is stable. Ongoing right basilar airspace opacities are redemonstrated. Interval removal of the right-sided chest tube. IMPRESSION: Interval removal of right-sided chest tube. No pneumothorax. Ongoing bibasilar airspace opacities and pleural effusion Electronically signed by: Magnolia Cavanaugh MD (01/10/2019 10:28 AM) [facility]
--- NOTE | 2019-01-10 10:49 | PDOC ---
PROGRESS NOTES Subjective Subjective chest tube removed this morning. cxr post chest tube removal showed no pneumothorax. says she feels slight SOA at rest. cough with clear sputum.she wants to pursue palliative radiation rx Objective Objective Vital Signs Date Time Temp Pulse Resp B/P (MAP) Pulse Ox O2 Delivery O2 Flow Rate FiO2 01/10/19 10:13 98 Nasal Cannula 5.0 01/10/19 08:21 84 126/61 01/10/19 07:00 98.1 18 98.1 Intake and Output 01/10/19 07:00 Intake Total 350 ml Output Total 300 ml Balance 50 ml Intake Oral 350 ml Output Urine Total 300 ml Physical Exam Abdomen: Soft Heart: Regular rate, Normal S1, Normal S2 Extremities: No edema General: Alert HEENT: Atraumatic Lungs: Other (decreased breath sound right base) Neuro: Normal speech Psych/Mental Status: Mental status NL Skin: No rashes Assessment Assessment Problems1. Right-sided pneumothorax resolved post removal of chest tube 2. Adenocarcinoma of RML lung 3. Chronic obstructive pulmonary disease. 4. Chronic hypoxic respiratory failure. 5. Hypertension. 6. Restless leg syndrome. 7. Gastroesophageal reflux disease. Medical Problems: (1) Acute and chronic respiratory failure Status: Acute (2) Pneumothorax Status: Acute (3) Pneumothorax of right lung after biopsy Status: Acute (4) Right lower lobe lung mass Status: Acute Plan Plan of Care cxr tomorrow dr. Cordova will hopefully see her tomorrow regarding palliative radiation tx consider dismissal tomorrow Comment Review of Relevant I have reviewed the following items anette (where applicable) has been applied. Medications Current Medications Lidocaine/Sodium Bicarbonate (Buffered Lidocaine 1%) 3 ml STK-MED ONCE .ROUTE ; Start 01/05/19 at 07:48; Stop 01/05/19 at 07:49; Status DC Lidocaine/Sodium Bicarbonate (Buffered Lidocaine 1%) 3 ml 1X ONCE IJ Last administered on 01/05/19at 08:00; Start 01/05/19 at 08:00; Stop 01/05/19 at 08:01; Status DC Midazolam HCl (Versed) 2 mg 1X ONCE IV Last administered on 01/05/19at 08:00; Start 01/05/19 at 08:00; Stop 01/05/19 at 08:01; Status DC Fentanyl Citrate (Fentanyl 2ml Vial) 100 mcg 1X ONCE IV Last administered on 01/05/19at 08:00; Start 01/05/19 at 08:00; Stop 01/05/19 at 08:01; Status DC Midazolam HCl (Versed) 2 mg STK-MED ONCE .ROUTE ; Start 01/05/19 at 07:55; Stop 01/05/19 at 07:56; Status DC Fentanyl Citrate (Fentanyl 2ml Vial) 100 mcg STK-MED ONCE .ROUTE ; Start 01/05/19 at 07:55; Stop 01/05/19 at 07:56; Status DC Flumazenil (Romazicon) 0.5 mg STK-MED ONCE IV ; Start 01/05/19 at 07:55; Stop 01/05/19 at 07:56; Status DC Naloxone HCl (Narcan) 0.4 mg STK-MED ONCE .ROUTE ; Start 01/05/19 at 07:55; Stop 01/05/19 at 07:56; Status DC Ketorolac Tromethamine (Toradol 15mg Vial) 15 mg PRN Q8HRS PRN IV PAIN Last administered on 01/10/19at 08:19; Start 01/05/19 at 10:45; Stop 01/10/19 at 10:44; Status DC Acetaminophen/ Hydrocodone Bitart (Lortab 5/325) 1 tab PRN Q6HRS PRN PO PAIN Last administered on 01/05/19at 10:50; Start 01/05/19 at 10:45; Stop 01/05/19 at 11:43; Status DC Acetaminophen/ Hydrocodone Bitart (Lortab 5/325) 1 tab PRN Q4HRS PRN PO PAIN Last administered on 01/10/19at 08:19; Start 01/05/19 at 11:00 Docusate Sodium (Colace) 100 mg DAILY PO Last administered on 01/10/19at 08:20; Start 01/05/19 at 11:00 Acetaminophen (Tylenol) 650 mg PRN Q6HRS PRN PO HEADACHE/TEMP Last administered on 01/08/19at 17:06; Start 01/05/19 at 11:45 Amlodipine Besylate (Norvasc) 5 mg DAILY PO Last administered on 01/10/19at 08:20; Start 01/05/19 at 12:00 Losartan Potassium (Cozaar) 50 mg DAILY PO Last administered on 01/10/19 08:21; Start 01/05/19 at 12:00 Pantoprazole Sodium (Protonix) 40 mg DAILYAC PO Last administered on 01/10/19 08:20; Start 01/06/19 at 07:30 Ropinirole HCl (Requip) 1 mg DAILYWSUP PO ; Start 01/05/19 at 17:00; Stop 01/05/19 at 17:00; Status DC Ropinirole HCl (Requip) 2 mg QHS PO Last administered on 01/09/19 20:31; Start 01/05/19 at 21:00 Amlodipine Besylate (Norvasc) 5 mg DAILY PO ; Start 01/05/19 at 12:00; Status UNV Losartan Potassium (Cozaar) 50 mg DAILY PO ; Start 01/05/19 at 12:00; Status UNV Famotidine (Pepcid) 40 mg QHS PO Last administered on 01/09/19 20:31; Start 01/05/19 at 21:00 Ropinirole HCl (Requip) 2 mg QHS PO ; Start 01/05/19 at 21:00; Status UNV Ropinirole HCl (Requip) 1 mg DAILY16 PO ; Start 01/05/19 at 17:00; Status UNV Ipratropium [place] (Atrovent) 0.5 mg RTQID PRN NEB SHORTNESS OF BREATH Last administered on 01/07/19 14:50; Start 01/05/19 at 11:45 Acetaminophen (Tylenol) 650 mg PRN Q6HRS PRN PO MILD PAIN / TEMP; Start 01/05/19 at 11:45; Stop 01/05/19 at 11:47; Status DC Magnesium Hydroxide (Milk Of Magnesia) 2,400 mg PRN DAILY PRN PO CONSTIPATION; Start 01/05/19 at 11:45 Ropinirole HCl (Requip) 1 mg DAILYWSUP PO Last administered on 01/09/19 16:51; Start 01/05/19 at 15:00 Lorazepam (Ativan) 0.5 mg PRN Q8HRS PRN PO ANXIETY / AGITATION Last administered on 01/06/19 20:22; Start 01/05/19 at 22:15 Ibuprofen (Motrin) 400 mg TIDWMEALS PO Last administered on 01/10/19at 08:19; Start 01/06/19 at 17:00 Fluticasone Propionate (Flonase) 2 spray DAILY NS Last administered on 01/10/19at 08:20; Start 01/09/19 at 09:00 Active Scripts Active Reported Hydrocodone-Apap 7.5-325 (Hydrocodone Bit/Acetaminophen) 1 Tab Tablet 1 Tab PO PRN Q4HRS PRN Ropinirole Hcl 2 Mg Tablet 2 Mg PO HS Amlodipine Besylate 5 Mg Tablet 5 Mg PO DAILY Ropinirole Hcl 1 Mg Tablet 1 Mg PO DAILYWSUP Duoneb 0.5-3(2.5) Mg/3 Ml (Albuterol/Ipratropium) 3 Ml Ampul.neb 1 INH PRN Q4- 6HRS PRN Losartan Potassium 50 Mg Tablet 50 Mg PO DAILY Prilosec Otc (Omeprazole Magnesium) 20 Mg Tablet. 1 Tab PO DAILY Vitals/I & O Vital Sign - Last 24 Hours 01/09/19 01/09/19 01/09/19 01/09/19 11:00 15:00 19:16 19:27 Temp 99.1 97.8 98.3 99.1 97.8 98.3 Pulse 93 86 102 Resp 22 B/P (MAP) 129/60 (83) 109/47 (67) 108/52 (70) Pulse Ox 95 95 96 O2 Delivery Nasal Cannula Nasal Cannula Nasal Cannula Nasal Cannula O2 Flow Rate 5.0 5.0 5.0 5.0 01/09/19 01/09/19 01/09/19 01/10/19 20:32 21:40 23:40 03:35 Temp 98.6 98.3 98.6 98.3 Pulse 84 92 Resp 18 18 18 18 B/P (MAP) 132/63 (86) 157/68 (97) Pulse Ox 99 98 O2 Delivery Nasal Cannula Nasal Cannula Nasal Cannula O2 Flow Rate 5.0 5.0 5.0 01/10/19 01/10/19 01/10/19 01/10/19 07:00 08:00 08:19 08:20 Temp 98.1 98.1 Pulse 84 84 Resp 18 B/P (MAP) 126/61 (82) 126/61 Pulse Ox 98 98 O2 Delivery Nasal Cannula Nasal Cannula Nasal Cannula O2 Flow Rate 5.0 5.0 5.0 01/10/19 01/10/19 08:21 10:13 Pulse 84 B/P (MAP) 126/61 Pulse Ox 98 O2 Delivery Nasal Cannula O2 Flow Rate 5.0 Intake and Output 01/09/19 01/09/19 01/10/19 15:00 23:00 07:00 Intake Total 350 ml Output Total 300 ml Balance 350 ml -300 ml Nutrition Consultation Dietary Evaluation: Recommendations by RD: Protein supplementation Comments: Continue w/regular diet as ordered, honor food preferences, and provide snacks as requested REC Ensure TID Expected Outcomes/Goals: PO intake to meet >75% est needs Malnutrition Findings: Body Fat Depletion (Non Severe: Mild Depletion Weight Status: Appropriate HIPOLITO SCHAFER MD Jan 10, 2019 10:49
[2019-01-10] MEDS ORDERED: FAMO20TA5 PO (10:53)
[2019-01-10] MEDS ORDERED: TIOT18CA IH (10:53)
--- NOTE | 2019-01-10 10:55 | DISCH ---
DISCHARGE INSTRUCTIONS Condition on Discharge Condition on Discharge: Stable Activity After Discharge Activity Instructions for Disc: Resume previous activity Exercise Instruction after Dis: Progress as tolerated Weight Bearing Status after Di: As tolerated Diet after Discharge Diet after Discharge: Regular Diet Texture: Regular Contacting the DRFrancisco after DC Call your doctor for: If your condition worsens Follow-Up Follow up with: dr. schafer next week Treatment/Equipment after DC Adaptive Equipment Issued: [place] Comment: right anterior chest tube HIPOLITO SCHAFER MD Jan 10, 2019 10:55
[2019-01-10 11:00] VITALS: BP 127/63
--- NOTE | 2019-01-10 11:03 | PDOC ---
Provider Note Provider Note discharge summary dictated # [id number] HIPOLITO SCHAFER MD Jan 10, 2019 11:03
--- NOTE | 2019-01-10 12:01 | DS ---
DATE OF DISCHARGE: DATE OF ANTICIPATED DISMISSAL: 01/11/2019. CONSULTANTS: Include Dr. Baca, Dr. Carol Uribe, Dr. Yun, Dr. Talbot and also Dr. Ayala. PROCEDURE: Placement of a right-sided chest tube for a pneumothorax. FINAL DIAGNOSES: 1. Right-sided pneumothorax following an aspiration needle biopsy of a right middle lobe lung mass. 2. Adenocarcinoma of the right middle lobe of the lung. 3. Chronic obstructive pulmonary disease. 4. Hypertension. 5. Restless legs syndrome. 6. Gastroesophageal reflux disease. HOSPITAL COURSE: The patient is an 83-year-old white female with history of COPD and chronic hypoxic respiratory failure, maintained on oxygen 3 liters per nasal cannula at home, who has a history of a right middle lobe lung mass. She had a PET scan, which showed some hypermetabolic activity involving the right middle lobe lung mass. There is also some paratracheal and right hilar lymphadenopathy and the patient agreed to a fine needle aspiration biopsy, which was done as an outpatient of a right middle lobe lung mass and the post-procedure chest x-ray showed a right-sided pneumothorax requiring a chest tube and then she was admitted to the hospital on 01/05/2019. She was seen in consultation by Dr. Talbot for Pulmonary, Dr. Baca for Radiation Oncology, Dr. Larios for Oncology. She was deemed a poor surgical candidate and also not a good candidate for chemotherapy because of her advanced chronic obstructive pulmonary disease. She was seen by the radiation therapist and agreed to palliative radiation therapy. Her chest tube was removed earlier this morning and a followup chest x-ray showed no pneumothorax with removal of the chest tube. She will have another chest x-ray tomorrow and anticipated that she will be dismissed tomorrow. Hopefully, Dr. Cordova can see the patient tomorrow to discuss palliative radiation therapy with her. It is anticipated she will be dismissed on amlodipine 5 mg every day, losartan 50 mg every day, famotidine 40 mg at bedtime, Requip 1 mg at 5:00 p.m. and 2 mg at bedtime, Spiriva 1 puff every day, Prilosec [id number] 20 mg every day, Ventolin inhaler p.r.n. and albuterol nebulized treatments q.i.d. p.r.n. So, these are the same medicines she was taking at home. She will follow up and see Dr. Schafer in the office in about 1 week and hopefully we will be able to set up palliative radiation therapy for her also. HIPOLITO SCHAFER MD DR: ASAEL/kaveh JOB#: [id number] / [id number]
[2019-01-10 15:00] VITALS: BP 108/54
[2019-01-10] MEDS: rOPINIRole 1 MG TABLET. PO SCH ×2 (16:29→20:45)
[2019-01-10 19:05] VITALS: BP 118/51
[2019-01-10] MEDS: FAMOTIDINE 20 MG TABLET. PO SCH (20:45)
[2019-01-10 23:42] VITALS: BP 135/74
[2019-01-11] MEDS: HYDROcodone/APAP 5/325MG 1 TAB TABLET PO PRN (03:00)
[2019-01-11 07:00] VITALS: BP 116/64
[2019-01-11] MEDS: PANTOPRAZOLE 40 MG TABLET.DR. PO SCH (07:49)
--- NOTE | 2019-01-11 08:27 | PDOC ---
SUBJECTIVE Subjective S: doing well, better, would like to get RT, again confirms no desire for any chemo O: Gen: elderly female in NAD, resting in chair Psych: pleasant mood and affect A/P: 83-year-old female with new diagnosis of moderately differentiated adenocarcinoma from 06 January 2019 right lung biopsy, she has evidence of a right middle lobe mass with some possible hilar lymph node involvement, possible metastatic nodule at the right epicardial fat and possible associated effusion that has been enlarging, has been treated for pneumonia recently, is on oxygen, symptomatic from prior chest tube pain w/ cough, still smoking prior to admit. Lung cancer: She does not want any life prolonging measures, is not interested in any chemotherapy options (confirmed for me again today), therefore will not pursue ancillary testing of tumor however this was certainly offered again and we can do this if she wanted down the road, however with her age and functional status she would prefer to discuss with palliative care her options including hospice, we'll consult Mrs. Hedrick (hopefully will see her toay) and I do appreciate her help. Also radiation oncology is planning palliative radiotherapy and she will likely d/w Dr Cordova prior to wa. She has declined further staging with a brain MRI or CT scan, not having headaches or symptoms neurologically so I will not pursue this per her request. Tobacco abuse: Highly recommend smoking cessation, to help improve quality of life at the end-of-life Disposition: Per others, hopefully will visit w/ Mrs. Hedrick, and Dr Cordova, f/u w/ us is prn Thank you kindly and please don't hesitate to call w/ further ?s. OBJECTIVE Vital Signs Vital Signs Date Time Temp Pulse Resp B/P (MAP) Pulse Ox O2 Delivery O2 Flow Rate FiO2 01/11/19 07:00 98.1 80 16 116/64 (81) 94 Nasal Cannula 5.0 98.1 01/11/19 04:00 18 99 Nasal Cannula 5.0 01/11/19 03:00 20 Nasal Cannula 5.0 01/10/19 23:42 97.9 90 20 135/74 (94) 100 Nasal Cannula 5.0 97.9 01/10/19 20:00 Nasal Cannula 5.0 01/10/19 19:25 Nasal Cannula 5.0 01/10/19 19:05 98.1 93 22 118/51 (73) 98 Nasal Cannula 5.0 98.1 01/10/19 15:00 97.9 97 18 108/54 (72) 92 Nasal Cannula 5.0 97.9 01/10/19 11:00 98.1 84 18 127/63 (84) 96 Nasal Cannula 5.0 98.1 I & O Intake and Output 01/11/19 07:00 Intake Total 300 ml Output Total 700 ml Balance -400 ml Intake Oral 300 ml Output Urine Total 700 ml Nutrition Consultation Dietary Evaluation: Recommendations by RD: Protein supplementation Comments: Continue w/regular diet as ordered, honor food preferences, and provide snacks as requested REC Ensure TID Expected Outcomes/Goals: PO intake to meet >75% est needs Malnutrition Findings: Body Fat Depletion (Non Severe: Mild Depletion Weight Status: Appropriate CARLOS MANUEL PEREZ MD Jan 11, 2019 08:27
[2019-01-11] MEDS: DOCUSATE SODIUM 100 MG CAPSULE. PO SCH (08:42)
[2019-01-11] MEDS: IBUPROFEN 400 MG TABLET. PO SCH ×2 (08:42→14:22)
[2019-01-11] MEDS: amLODIPine BESYLATE 5 MG TABLET PO SCH (08:43)
[2019-01-11] MEDS: FLUTICASONE 50MCG/NASAL SPRAY 16GM BOTTLE. NS SCH (08:45)
--- NOTE | 2019-01-11 08:52 | RAD ---
Chest radiograph 01/11/2019 5:00 AM INDICATION: Pneumothorax COMPARISON: January 10, 2019 TECHNIQUE: Frontal view of the chest is provided. FINDINGS: The cardiomediastinal silhouette is similar in appearance. Small bilateral pleural effusions with adjacent compressive atelectasis versus infiltrates, not significantly changed since the prior examination. There is persistent right chest wall subcutaneous emphysema. No definite right-sided pneumothorax is visualized. IMPRESSION: Similar aeration of the lungs compared to prior examination. No definite pneumothorax status post removal of chest tube. Electronically signed by: Nivia Cruz MD (01/11/2019 8:49 AM) [id number]
--- NOTE | 2019-01-11 09:50 | PDOC ---
PULMONARY PROGRESS NOTES Subjective no sob, has occ cough, no nasal congestion, Vitals Vital Signs Date Time Temp Pulse Resp B/P (MAP) Pulse Ox O2 Delivery O2 Flow Rate FiO2 01/11/19 08:43 80 116/64 01/11/19 07:00 98.1 16 94 Nasal Cannula 5.0 98.1 ROS: No Nausea General: Alert, No acute distress Lungs: Other (SC AIR RIGHT, r ct, dull at base) Cardiovascular: S1, S2 Abdomen: Soft, Non-tender Neuro Exam: Alert Extremities: No Edema Skin: Warm Medications Active Scripts Medications Dose Route/Sig Max Daily Dose Days Date Category Hydrocodone-Apap 7.5-325 (Hydrocodone Bit/Acetaminophen) 1 Tab Tablet 1 Tab PO PRN Q4HRS PRN 10/05/18 Reported Ropinirole Hcl 2 Mg Tablet 2 Mg PO HS 10/05/18 Reported Amlodipine Besylate 5 Mg Tablet 5 Mg PO DAILY 10/05/18 Reported Ropinirole Hcl 1 Mg Tablet 1 Mg PO DAILYWSUP 10/05/18 Reported Duoneb 0.5-3(2.5) Mg/3 Ml (Albuterol/Ipratropium) 3 Ml Ampul.neb 1 INH PRN Q4-6HRS PRN 10/05/18 Reported Losartan Potassium 50 Mg Tablet 50 Mg PO DAILY 10/05/18 Reported Prilosec Otc (Omeprazole Magnesium) 20 Mg Tablet.dr 1 Tab PO DAILY 05/16/14 Reported Comments cxr 01/11 reviewed COPD with emphysematous lungs. Linear right basilar opacities likely atelectasis with small bilateral pleural effusions. No pneumothorax is identified. decrease sc air Impression . 1. Expected pneumothorax, status post fine needle aspiration of right lung mass. 2. Right lung mass. bx c/w adenocarcinoma 3. Acute on chronic respiratory failure. 4. Chronic obstructive pulmonary disease exacerbation. 5. Hypertension. 6. Osteoarthritis. Plan . 1. ct, chest tube removed, tolerated well, cxr 01/11 reviewed, no ptx, decrease sc air, small effusions 2. Not the best candidate for treatment of lung cancer. . consulted Medical Onc/ XRT 3. Deep venous thrombosis and gastrointestinal prophylaxis. 4. Continue home medications. 5. Pain control 6. flonase for nasal congestion d/w pt and rn, reviewed PET scan. ok with dc home after XRT f/u PT consulted VASYL LAM MD Jan 11, 2019 09:50
--- NOTE | 2019-01-11 10:15 | PDOC ---
PROGRESS NOTES Subjective Subjective feels okay. not short of breath. cxr showed no pneumothorax Objective Objective Vital Signs Date Time Temp Pulse Resp B/P (MAP) Pulse Ox O2 Delivery O2 Flow Rate FiO2 01/11/19 08:43 80 116/64 01/11/19 07:00 98.1 16 94 Nasal Cannula 5.0 98.1 Intake and Output 01/11/19 07:00 Intake Total 300 ml Output Total 700 ml Balance -400 ml Intake Oral 300 ml Output Urine Total 700 ml Physical Exam Abdomen: Soft Heart: Regular rate, Normal S1, Normal S2 Extremities: No edema General: Alert HEENT: Atraumatic Lungs: Other (decreased breath sounds bilaterally) Neuro: Normal speech Psych/Mental Status: Mental status NL Skin: No rashes Assessment Assessment Problems. Right-sided pneumothorax resolved post removal of chest tube 2. Adenocarcinoma of RML lung 3. Chronic obstructive pulmonary disease. 4. Chronic hypoxic respiratory failure. 5. Hypertension. 6. Restless leg syndrome. 7. Gastroesophageal reflux disease. Medical Problems: (1) Acute and chronic respiratory failure Status: Acute (2) Pneumothorax Status: Acute (3) Pneumothorax of right lung after biopsy Status: Acute (4) Right lower lobe lung mass Status: Acute Plan Plan of Care dr. Cordova to discuss palliative radiation rx with her this afternoon dismiss today after she speaks with dr. Cordova Comment Review of Relevant I have reviewed the following items anette (where applicable) has been applied. Medications Current Medications Lidocaine/Sodium Bicarbonate (Buffered Lidocaine 1%) 3 ml STK-MED ONCE .ROUTE ; Start 01/05/19 at 07:48; Stop 01/05/19 at 07:49; Status DC Lidocaine/Sodium Bicarbonate (Buffered Lidocaine 1%) 3 ml 1X ONCE IJ Last administered on 01/05/19at 08:00; Start 01/05/19 at 08:00; Stop 01/05/19 at 08:01; Status DC Midazolam HCl (Versed) 2 mg 1X ONCE IV Last administered on 01/05/19at 08:00; Start 01/05/19 at 08:00; Stop 01/05/19 at 08:01; Status DC Fentanyl Citrate (Fentanyl 2ml Vial) 100 mcg 1X ONCE IV Last administered on 01/05/19at 08:00; Start 01/05/19 at 08:00; Stop 01/05/19 at 08:01; Status DC Midazolam HCl (Versed) 2 mg STK-MED ONCE .ROUTE ; Start 01/05/19 at 07:55; Stop 01/05/19 at 07:56; Status DC Fentanyl Citrate (Fentanyl 2ml Vial) 100 mcg STK-MED ONCE .ROUTE ; Start 01/05/19 at 07:55; Stop 01/05/19 at 07:56; Status DC Flumazenil (Romazicon) 0.5 mg STK-MED ONCE IV ; Start 01/05/19 at 07:55; Stop 01/05/19 at 07:56; Status DC Naloxone HCl (Narcan) 0.4 mg STK-MED ONCE .ROUTE ; Start 01/05/19 at 07:55; Stop 01/05/19 at 07:56; Status DC Ketorolac Tromethamine (Toradol 15mg Vial) 15 mg PRN Q8HRS PRN IV PAIN Last administered on 01/10/19at 08:19; Start 01/05/19 at 10:45; Stop 01/10/19 at 10:44; Status DC Acetaminophen/ Hydrocodone Bitart (Lortab 5/325) 1 tab PRN Q6HRS PRN PO PAIN Last administered on 01/05/19at 10:50; Start 01/05/19 at 10:45; Stop 01/05/19 at 11:43; Status DC Acetaminophen/ Hydrocodone Bitart (Lortab 5/325) 1 tab PRN Q4HRS PRN PO PAIN Last administered on 01/11/19 03:00; Start 01/05/19 at 11:00 Docusate Sodium (Colace) 100 mg DAILY PO Last administered on 01/11/19 08:42; Start 01/05/19 at 11:00 Acetaminophen (Tylenol) 650 mg PRN Q6HRS PRN PO HEADACHE/TEMP Last administered on 01/08/19 17:06; Start 01/05/19 at 11:45 Amlodipine Besylate (Norvasc) 5 mg DAILY PO Last administered on 01/11/19at 08:43; Start 01/05/19 at 12:00 Losartan Potassium (Cozaar) 50 mg DAILY PO Last administered on 01/10/19at 08:21; Start 01/05/19 at 12:00 Pantoprazole Sodium (Protonix) 40 mg DAILYAC PO Last administered on 01/11/19 07:49; Start 01/06/19 at 07:30 Ropinirole HCl (Requip) 1 mg DAILYWSUP PO ; Start 01/05/19 at 17:00; Stop 01/05/19 at 17:00; Status DC Ropinirole HCl (Requip) 2 mg QHS PO Last administered on 01/10/19 20:45; Start 01/05/19 at 21:00 Amlodipine Besylate (Norvasc) 5 mg DAILY PO ; Start 01/05/19 at 12:00; Status UNV Losartan Potassium (Cozaar) 50 mg DAILY PO ; Start 01/05/19 at 12:00; Status UNV Famotidine (Pepcid) 40 mg QHS PO Last administered on 01/10/19 20:45; Start 01/05/19 at 21:00 Ropinirole HCl (Requip) 2 mg QHS PO ; Start 01/05/19 at 21:00; Status UNV Ropinirole HCl (Requip) 1 mg DAILY16 PO ; Start 01/05/19 at 17:00; Status UNV Ipratropium [place] (Atrovent) 0.5 mg RTQID PRN NEB SHORTNESS OF BREATH Last administered on 01/07/19 14:50; Start 01/05/19 at 11:45 Acetaminophen (Tylenol) 650 mg PRN Q6HRS PRN PO MILD PAIN / TEMP; Start 01/05/19 at 11:45; Stop 01/05/19 at 11:47; Status DC Magnesium Hydroxide (Milk Of Magnesia) 2,400 mg PRN DAILY PRN PO CONSTIPATION; Start 01/05/19 at 11:45 Ropinirole HCl (Requip) 1 mg DAILYWSUP PO Last administered on 01/10/19 16:29; Start 01/05/19 at 15:00 Lorazepam (Ativan) 0.5 mg PRN Q8HRS PRN PO ANXIETY / AGITATION Last administere d on 01/06/19 20:22; Start 01/05/19 at 22:15 Ibuprofen (Motrin) 400 mg TIDWMEALS PO Last administered on 01/11/19 08:42; Start 01/06/19 at 17:00 Fluticasone Propionate (Flonase) 2 spray DAILY NS Last administered on 01/11/19at 08:45; Start 01/09/19 at 09:00 Active Scripts Active Spiriva (Tiotropium [place]) 18 Mcg Cap.w.dev 1 Cap IH DAILY 30 Days Famotidine 20 Mg Tablet 40 Mg PO QHS Reported Hydrocodone-Apap 7.5-325 (Hydrocodone Bit/Acetaminophen) 1 Tab Tablet 1 Tab PO PRN Q4HRS PRN Ropinirole Hcl 2 Mg Tablet 2 Mg PO HS Amlodipine Besylate 5 Mg Tablet 5 Mg PO DAILY Ropinirole Hcl 1 Mg Tablet 1 Mg PO DAILYWSUP Duoneb 0.5-3(2.5) Mg/3 Ml (Albuterol/Ipratropium) 3 Ml Ampul.neb 1 INH PRN Q4- 6HRS PRN Losartan Potassium 50 Mg Tablet 50 Mg PO DAILY Prilosec Otc (Omeprazole Magnesium) 20 Mg Tablet. 1 Tab PO DAILY Vitals/I & O Vital Sign - Last 24 Hours 01/10/19 01/10/19 01/10/19 01/10/19 11:00 15:00 19:05 19:25 Temp 98.1 97.9 98.1 98.1 97.9 98.1 Pulse 84 97 93 Resp 18 18 22 B/P (MAP) 127/63 (84) 108/54 (72) 118/51 (73) Pulse Ox 96 92 98 O2 Delivery Nasal Cannula Nasal Cannula Nasal Cannula Nasal Cannula O2 Flow Rate 5.0 5.0 5.0 5.0 01/10/19 01/10/19 01/11/19 01/11/19 20:00 23:42 03:00 04:00 Temp 97.9 97.9 Pulse 90 Resp 20 20 18 B/P (MAP) 135/74 (94) Pulse Ox 100 99 O2 Delivery Nasal Cannula Nasal Cannula Nasal Cannula Nasal Cannula O2 Flow Rate 5.0 5.0 5.0 5.0 01/11/19 01/11/19 07:00 08:43 Temp 98.1 98.1 Pulse 80 80 Resp 16 B/P (MAP) 116/64 (81) 116/64 Pulse Ox 94 O2 Delivery Nasal Cannula O2 Flow Rate 5.0 Intake and Output 01/10/19 01/10/19 01/11/19 15:00 23:00 07:00 Intake Total 300 ml Output Total 250 ml 200 ml 250 ml Balance -250 ml -200 ml 50 ml Nutrition Consultation Dietary Evaluation: Recommendations by RD: Protein supplementation Comments: Continue w/regular diet as ordered, honor food preferences, and provide snacks as requested REC Ensure TID Expected Outcomes/Goals: PO intake to meet >75% est needs Malnutrition Findings: Body Fat Depletion (Non Severe: Mild Depletion Weight Status: Appropriate HIPOLITO SCHAFER MD Jan 11, 2019 10:15
[2019-01-11 11:00] VITALS: BP 129/71
[2019-01-11 14:24] VITALS: BP 129/71
[2019-01-11] MEDS: LOSARTAN POTASSIUM 50 MG TABLET. PO SCH (14:24)
--- NOTE | 2019-01-11 14:53 | NUR ---
Discharge Note: ADEN GALLOWAY Discharge instructions and discharge home medications reviewed with Patient and a copy given. All questions have been answered and understanding verbalized. The following instructions and handouts were given: radiation, lung cancer, follow up with Dr. Jesus, Dr. Cordova, And Dr. Yun, wound care for chest tube site, (clean and dry with new dressing and supplies), Patient has home O2. Discontinued lines and drains: IVs removed, no lines present on discharge. Patient discharged to home. left by wheelchair with her daughter and .
== END 2019-01-11 14:30 | disposition home or self-care (01) | DRG 199 ==
LOC: INTRAD 06:38 → 2 NORTH 09:30 → OBSVTOIN 09:30
PROVIDERS: ADMIT Internal Medicine; ATTEND Internal Medicine
PROC: 0W9930Z Drainage of Right Pleural Cavity with Drainage Device, Percutaneous Approach (ICD-10-PCS; principal; 2019-01-05)
PROC: 0BBD3ZX Excision of Right Middle Lung Lobe, Percutaneous Approach, Diagnostic (ICD-10-PCS; 2019-01-05)
DX: J95.811 Postprocedural pneumothorax (principal); J96.21 Acute and chronic respiratory failure with hypoxia; C34.2 Malignant neoplasm of middle lobe, bronchus or lung; J44.0 Chronic obstructive pulmonary disease with (acute) lower respiratory infection; J44.1 Chronic obstructive pulmonary disease with (acute) exacerbation; J90 Pleural effusion, not elsewhere classified; R91.8 Other nonspecific abnormal finding of lung field; F17.210 Nicotine dependence, cigarettes, uncomplicated; L40.9 Psoriasis, unspecified; G25.81 Restless legs syndrome; F41.9 Anxiety disorder, unspecified; I10 Essential (primary) hypertension; K21.9 Gastro-esophageal reflux disease without esophagitis; L40.50 Arthropathic psoriasis, unspecified; M06.9 Rheumatoid arthritis, unspecified; M17.10 Unilateral primary osteoarthritis, unspecified knee; M81.0 Age-related osteoporosis without current pathological fracture; Z79.899 Other long term (current) drug therapy; Z80.6 Family history of leukemia; Z85.118 Personal history of other malignant neoplasm of bronchus and lung; Z87.01 Personal history of pneumonia (recurrent); Z99.81 Dependence on supplemental oxygen; Z87.440 Personal history of urinary (tract) infections
CPT/HCPCS: 32405; 32557; 36415; 71045; 71046; 77012; 80053; 82805; 83735; 85025; 85610; 88305; 93005; 94640; 94760; 99152; 99153; A4215; C1729; C1894; J1885; J2250; J3010; J7644

== ENCOUNTER 2019-04-07 15:40 | Emergency (ER) | payer BC ==
[~2019-04-07] VITALS: Ht 152.4 cm; Wt 51.3 kg
[~2019-04-07 15:40] MED LIST changes: +FAMO20TA5 PO; +LISI1TAB23 PO; -LISI1TAB3 PO; +TIOT18CA IH
--- NOTE | 2019-04-07 16:26 | EKG ---
[facility] [address] [place] [address] Test Date: 2019-04-07 Test Time: 16:04:04 Pat Name: ADEN GALLOWAY Department: Room: Gender: F Billing Assistant: : [id number] Requested By: KRISTIAN HERNANDEZ Order Number: [id number] Reading MD: Measurements Intervals [place] Rate: 107 P: VA: QRS: -12 QRSD: 92 T: 17 QT: 316 QTc: 427 Interpretive Statements ATRIAL FIB./FLUTTER WITH RAPID VENTRICULAR RESPONSE LEFTWARD AXIS NON SPECIFIC ST DEPRESSION ABNORMAL ECG No previous ECG available for comparison
[2019-04-07 16:31] LABS: BASO % 1 % (0-3); EOS # 0.1 x10^3/uL (0.0-0.7); EOS % 1 % (0-3); HEMATOCRIT 39.6 % (36.0-47.0); LYMPH # 0.9 x10^3/uL (1.0-4.8); LYMPH % 16 % (24-48); MEAN CORPUSCULAR HEMOGLOBIN 30 pg (25-35); MEAN CORPUSCULAR HGB CONC 33 g/dL (31-37); MEAN CORPUSCULAR VOLUME 93 fL (79-100); MONO # 0.4 x10^3/uL (0.0-1.1); MONO % 8 % (0-9); NEUT % 74 % (31-73); PLATELET COUNT 207 x10^3/uL (140-400); RED BLOOD COUNT 4.27 x10^6/uL (3.50-5.40); RED CELL DISTRIBUTION WIDTH 14.7 % (11.5-14.5); WHITE BLOOD COUNT 5.5 x10^3/uL (4.0-11.0)
[2019-04-07 16:52] LABS: CALCIUM 9.6 mg/dL (8.5-10.1); CREATININE 0.7 mg/dL (0.6-1.0); GFR 79.3; POTASSIUM 4.4 mmol/L (3.5-5.1)
--- NOTE | 2019-04-07 16:57 | RAD ---
CHEST AP ONLY History: Shortness of breath. Lung cancer history Comparison: CT March 05, 2019. Chest x-ray January 11, 2019 Findings: Moderate right pleural effusion, increased compared to prior. Right basilar consolidation. Moderate hiatal hernia. No pneumothorax. High riding bilateral humeral heads in relation to the glenoid, may indicate chronic rotator cuff tear. Impression: 1. Increased moderate right pleural effusion. 2. Right basilar consolidation, unchanged. 3. Hiatal hernia. Electronically signed by: Bishop Dwyre DO (04/07/2019 4:54 PM) [id number]
[2019-04-07 16:58] LABS: ALBUMIN 3.2 g/dL (3.4-5.0); ALBUMIN/GLOBULIN RATIO 0.8 (1.0-1.7); TOTAL BILIRUBIN 0.3 mg/dL (0.2-1.0); TOTAL PROTEIN 7.1 g/dL (6.4-8.2)
[2019-04-07 18:13] LABS: BILIRUBIN,URINE NEGATIVE (NEG); CLARITY,URINE CLEAR; COLOR,URINE YELLOW; NITRITE,URINE NEGATIVE (NEG); PH,URINE 6.5; PROTEIN,URINE NEGATIVE (NEG-TRACE); UROBILINOGEN,URINE 0.2 mg/dL (0.2 mg/dL)
[2019-04-07 18:23] LABS: BACTERIA,URINE MODERATE /HPF (0-FEW); RBC,URINE OCC /HPF (0-2); SQUAMOUS EPITHELIAL CELL,UR FEW /LPF
[2019-04-07 18:30] VITALS: BP 164/79
--- NOTE | 2019-04-07 18:39 | PHYS DOC ---
Past Medical History Past Medical History: Arthritis (PSORIATIC ), Cancer (LUNG), COPD, GERD Additional Past Medical Histor: restless leg syndrome (KRISTIAN HERNANDEZ APRN) Past Surgical History: Appendectomy, Other Additional Past Surgical Histo: Right hip fx, EGD. HERNIA, HEMORROHOIDECTOMY (KRISTIAN HERNANDEZ APRN) Alcohol Use: None Drug Use: None (KRISTIAN HERNANDEZ APRN) Attending Signature I have participated in the care of this patient and I have reviewed and agree with all pertinent clinical information above including history, exam, and recommendations. (JOHN BRUNER MD) Adult General Chief Complaint Chief Complaint: SHORTNESS OF BREATH HPI HPI Patient is a 84 year old female, accompanied by her family, with complaints of shortness of breath for the last week. She denies any cough, fever, vomiting, abdominal pain, ear pain, sore throat, vomiting, or diarrhea. Patient states back in January 2019 she was diagnosed with lung cancer. She states she quit smoking at that time. Patient states that she wears oxygen 2 L by nasal cannula for the last 2-3 months. She also complaints of intermittent chest pain and palpitations. She currently denies any pain. (KRISTIAN HERNANDEZ APRN) Review of Systems Review of Systems Constitutional: Denies fever or chills [] Eyes: Denies change in visual acuity, redness, or eye pain [] HENT: Denies nasal congestion or sore throat [] Respiratory: Denies cough or wheezing, see HPI Cardiovascular: No additional information not addressed in HPI [] GI: Denies abdominal pain, nausea, vomiting, bloody stools or diarrhea [] : Denies dysuria or hematuria [] Musculoskeletal: Denies back pain or joint pain [] Integument: Denies rash or skin lesions [] Neurologic: Denies headache, focal weakness or sensory changes [] Complete systems were reviewed and found to be within normal limits, except as documented in this note. (KRISTIAN HERNANDEZ APRN) Allergies Allergies Allergies Coded Allergies Type Severity Reaction Last Updated Verified Penicillins Allergy Severe swelling 11/16/18 Yes (JOHN BRUNER MD) Physical Exam Physical Exam Constitutional: Well developed, well nourished, no acute distress, non-toxic appearance. [] HENT: Normocephalic, atraumatic, bilateral external ears normal, oropharynx dry, nose normal. [] Eyes: PERRLA, EOMI, conjunctiva normal, no discharge. [] Neck: Normal range of motion, no tenderness, supple, no stridor. [] Cardiovascular:Heart rate regular rhythm, no murmur [] Lungs & Thorax: Bilateral breath sounds clear to auscultation in upper lobes, diminished posterior R, coarse bilateral posterior [] Abdomen: Bowel sounds normal, soft, no tenderness, no masses, no pulsatile masses. [] Skin: Warm, dry, no erythema, no rash. [] Back: No tenderness Extremities: No cyanosis, no clubbing, ROM intact, no edema. [] Neurologic: Alert and oriented X 3, no focal deficits noted. [] Psychologic: Affect normal, judgement normal, mood normal. [] (KRISTIAN HERNANDEZ APRN) Current Patient Data Vital Signs Vital Signs Date Time Temp Pulse Resp B/P (MAP) Pulse Ox O2 Delivery O2 Flow Rate FiO2 04/07/19 18:30 116 164/79 (107) 93 Nasal Cannula 4.0 04/07/19 16:10 99.1 21 99.1 (JOHN BRUNER MD) Lab Values Laboratory Tests Test 04/07/19 16:18 04/07/19 18:00 White Blood Count 5.5 x10^3/uL (4.0-11.0) Red Blood Count 4.27 x10^6/uL (3.50-5.40) Hemoglobin 13.0 g/dL (12.0-15.5) Hematocrit 39.6 % (36.0-47.0) Mean Corpuscular Volume 93 fL (79-100) Mean Corpuscular Hemoglobin 30 pg (25-35) Mean Corpuscular Hemoglobin Concent 33 g/dL (31-37) Red Cell Distribution Width 14.7 % (11.5-14.5) H Platelet Count 207 x10^3/uL (140-400) Neutrophils (%) (Auto) 74 % (31-73) H Lymphocytes (%) (Auto) 16 % (24-48) L Monocytes (%) (Auto) 8 % (0-9) Eosinophils (%) (Auto) 1 % (0-3) Basophils (%) (Auto) 1 % (0-3) Neutrophils # (Auto) 4.0 x10^3/uL (1.8-7.7) Lymphocytes # (Auto) 0.9 x10^3/uL (1.0-4.8) L Monocytes # (Auto) 0.4 x10^3/uL (0.0-1.1) Eosinophils # (Auto) 0.1 x10^3/uL (0.0-0.7) Basophils # (Auto) 0.0 x10^3/uL (0.0-0.2) Prothrombin Time 13.0 SEC (11.7-14.0) Prothrombin Time INR 1.0 (0.8-1.1) Activated Partial Thromboplast Time 35 SEC (24-38) Sodium Level 142 mmol/L (136-145) Potassium Level 4.4 mmol/L (3.5-5.1) Chloride Level 103 mmol/L (98-107) Carbon Dioxide Level 35 mmol/L (21-32) H Anion Gap 4 (6-14) L Blood Urea Nitrogen 16 mg/dL (7-20) Creatinine 0.7 mg/dL (0.6-1.0) Estimated GFR (Cockcroft-Gault) 79.3 BUN/Creatinine Ratio 23 (6-20) H Glucose Level 123 mg/dL (70-99) H Lactic Acid Level 1.0 mmol/L (0.4-2.0) Calcium Level 9.6 mg/dL (8.5-10.1) Total Bilirubin 0.3 mg/dL (0.2-1.0) Aspartate Amino Transferase (AST) 16 U/L (15-37) Alanine Aminotransferase (ALT) 17 U/L (14-59) Alkaline Phosphatase 81 U/L (46-116) Troponin I Quantitative < 0.017 ng/mL (0.000-0.055) LO-Odo-Q-Type Natriuretic Peptide 272 pg/mL (0-449) Total Protein 7.1 g/dL (6.4-8.2) Albumin 3.2 g/dL (3.4-5.0) L Albumin/Globulin Ratio 0.8 (1.0-1.7) L Urine Collection Type Unknown Urine Color Yellow Urine Clarity Clear Urine pH 6.5 Urine Specific Abrams 1.020 Urine Protein Negative mg/dL (NEG-TRACE) Urine Glucose (UA) Negative mg/dL (NEG) Urine Ketones (Stick) Negative mg/dL (NEG) Urine Blood Small (NEG) Urine Nitrite Negative (NEG) Urine Bilirubin Negative (NEG) Urine Urobilinogen Dipstick 0.2 mg/dL (0.2 mg/dL) Urine Leukocyte Esterase Small (NEG) Urine RBC Occ /HPF (0-2) Urine WBC 11-20 /HPF (0-4) Urine Squamous Epithelial Cells Few /LPF Urine Bacteria Moderate /HPF (0-FEW) Urine Mucus Mod /LPF Laboratory Tests 04/07/19 16:18 Laboratory Tests 04/07/19 16:18 (JOHN BRUNER MD) EKG EKG 1604- SINUS ARRHYTHMIA rate 108, NO STEMI read by Dr. House[] (KRISTIAN HERNANDEZ APRN) Radiology/Procedures Radiology/Procedures PROCEDURE: CHEST AP ONLY CHEST AP ONLY History: Shortness of breath. Lung cancer history Comparison: CT March 05, 2019. Chest x-ray January 11, 2019 Findings: Moderate right pleural effusion, increased compared to prior. Right basilar consolidation. Moderate hiatal hernia. No pneumothorax. High riding bilateral humeral heads in relation to the glenoid, may indicate chronic rotator cuff tear. Impression: 1. Increased moderate right pleural effusion. 2. Right basilar consolidation, unchanged. 3. Hiatal hernia.[] (KRISTIAN HERNANDEZ APRN) Course & Med Decision Making Course & Med Decision Making Pertinent Labs and Imaging studies reviewed. (See chart for details) dx: R pleural effusion, shortness of breath, CBC unremarkable, PT/INR unremarkable, CMP: CO2 35, glucose 123, troponin negative, bnp 272m, otherwise unremarkable; UA concerning for UTI CXR increased R pleural effusion Pt declines admission to the hospital 1756- Spoke with Dr. Jesus about pt's CXR, he suggests that patient's CXR result be discussed with Dr. Talbot for follow up. 1804- Spoke with Dr. Talbot who will see patient in the office on Friday at 1 pm 2200- Spoke with Patient's daughter and advised of need to prescribe macrobid for UTI Will call in to [facility] at [address] [facility] [phone] Prescription for macrobid 100 mg, 1 PO BID x7 days, #14, no refills called into [facility] at this time. [] (KRISTIAN HERNANDEZ APRN) Dragon Disclaimer Dragon Disclaimer This electronic medical record was generated, in whole or in part, using a voice recognition dictation system. (KRISTIAN HERNANDEZ APRN) Departure Departure Impression: Primary Impression: Pleural effusion on right Additional Impressions: Shortness of breath UTI (urinary tract infection) Disposition: HOME, SELF-CARE Condition: STABLE Referrals: HIPOLITO JESUS MD (PCP) VASYL TALBOT MD Patient Instructions: Pleural Effusion-Brief Additional Instructions: Continue wearing your home oxygen. Follow up with Dr. Talbot at 1 pm on Friday, call his office in the morning to schedule the appointment. Return to the ER if your symptoms worsen. Problem Qualifiers Additional Impressions: UTI (urinary tract infection) Urinary tract infection type: site unspecified Hematuria presence: without hematuria Qualified Codes: N39.0 - Urinary tract infection, site not specified KRISTIAN HERNANDEZ APRN Apr 07, 2019 18:39 JOHN BRUNER MD Apr 08, 2019 02:57
== END 2019-04-07 18:40 | disposition home or self-care (01) ==
LOC: ER 15:40
DX: J90 Pleural effusion, not elsewhere classified (principal); N39.0 Urinary tract infection, site not specified; M19.90 Unspecified osteoarthritis, unspecified site; J44.9 Chronic obstructive pulmonary disease, unspecified; K21.9 Gastro-esophageal reflux disease without esophagitis; Z90.89 Acquired absence of other organs; Z85.118 Personal history of other malignant neoplasm of bronchus and lung; Z87.891 Personal history of nicotine dependence; Z88.0 Allergy status to penicillin
CPT/HCPCS: 36415; 71045; 80053; 81001; 83605; 83880; 84484; 85025; 85610; 85730; 87040; 87086; 87186; 93005; 99285-25

== ENCOUNTER 2019-04-09 10:00 | Outpatient (CLI) | payer BC ==
[~2019-04-09] VITALS: Ht 152.4 cm; Wt 51.3 kg
[2019-04-09] VITALS (10 sets, daily range): BP systolic 94–154; BP diastolic 57–79
[2019-04-09] MEDS ORDERED: METH2.5T PO (10:32)
[2019-04-09] MEDS ORDERED: FOLI1TAB16 PO (10:32)
--- NOTE | 2019-04-09 14:57 | RAD ---
Ultrasound Guided Thoracentesis, right side Indication: Adult female with right pleural effusion Sedation: Local anesthesia only Sterility: The procedure was performed in its entirety using appropriate elements of sterile technique. Technique and Findings: Following informed consent, the patient was prepped and draped in the usual sterile fashion. Ultrasound interrogation of the area of interest was performed revealing the presence of a pleural fluid collection. 1% Lidocaine was used to achieve local anesthesia over the area of interest. A small dermatotomy was made and a 5F [id number] catheter was advanced under ultrasound guidance into the pleural space and 1200 cc's of thin yellow fluid was removed. The catheter was then removed and hemostasis was achieved with manual compression. Impression: US thoracentesis as described.
--- NOTE | 2019-04-09 16:55 | RAD ---
EXAM: CHEST 1 VIEW History: Right thoracentesis. COMPARISON: 04/07/2019 TECHNIQUE: Single portable radiograph of the chest FINDINGS: Low lung volumes and technique accentuates heart size and pulmonary vascularity. Decreased right lung base airspace opacity likely pneumonia or atelectasis and effusion. Minimal prominent bilateral interstitial lung markings. No evidence of pneumothorax. IMPRESSION: Mild decrease in right lung base airspace opacity likely atelectasis or infiltrate or effusion. Electronically signed by: Israel Keyes MD (04/09/2019 4:52 PM) [id number]
== END 2019-04-09 13:40 | disposition home or self-care (01) ==
LOC: INTRAD 10:00
PROVIDERS: ATTEND Internal Medicine Pulmonary Disease
DX: J90 Pleural effusion, not elsewhere classified (principal)
CPT/HCPCS: 32555; 71045